=== PATIENT | male | born 1950 | race Caucasian/White ===

== ENCOUNTER 2019-12-30 11:32 | Outpatient (CLI) | payer MEDICARE, OTHER, SELFPAY ==
--- NOTE | ~2019-12-30 | NM_ITS ---
EXAMINATION: NM parathyroid imaging w spect DATE: 12/30/2019 15:03 INDICATION: Hypercalcemia TECHNIQUE: 19.6 mCi Tc99m Cardiolite (sestamibi) was administered by intravenous route. Anterior scin tigrams and delayed SPECT images of the neck were obtained at 10 minutes and 2 hours. COMPARISON: 12/28/2016 FINDINGS/IMPRESSION: There is no focus of persistent activity in the area of the thyroid or mediastinum to suggest parathy roid adenoma. Reviewed, dictated and finalized at location A.
== END 2019-12-30 11:33 | disposition home or self-care (01) ==
LOC: ANHIMG 11:45
PROVIDERS: PCP Family Medicine; Visit Provider Family Medicine
DX: E83.52 Hypercalcemia (principal)
CPT/HCPCS: 78071; A9500

== ENCOUNTER 2020-01-08 07:25 | Outpatient (CLI) | payer MEDICARE, OTHER, SELFPAY ==
[2020-01-08 08:05] LABS: Hemoglobin A1C 5.6 % (<5.7)
== END 2020-01-08 07:26 | disposition home or self-care (01) ==
LOC: ANHLAB 07:28 → ANHVASCINF 07:47
PROVIDERS: PCP Family Medicine; Visit Provider Family Medicine
DX: E11.9 Type 2 diabetes mellitus without complications (principal)
CPT/HCPCS: 36415; 83036

== ENCOUNTER 2020-04-09 07:40 | Outpatient (CLI) | payer MEDICARE, OTHER, SELFPAY ==
[2020-04-09 08:18] LABS: Alanine Aminotransferase 59 U/L (4-50); Albumin Level 4.2 g/dL (3.5-5.1); Alkaline Phosphatase 92 U/L (38-126); Anion Gap 8 mmol/L (8-16); Aspartate Amino Transferase 44 U/L (17-59); Bilirubin,Total 0.5 mg/dL (0.2-1.3); Blood Urea Nitrogen 23 mg/dL (9-20); Carbon Dioxide 28 mmol/L (22-30); Chloride 103 mmol/L (98-107); Estimated Glomerular Filt Rate > 60; Glucose 101 mg/dL (75-110); Potassium 3.8 mmol/L (3.4-5.0); Sodium 139 mmol/L (137-145)
[2020-04-09 08:29] LABS: Parathyroid Intact 60.2 pg/mL (7.5-53.5)
[2020-04-09 08:34] LABS: Hemoglobin A1C 5.5 % (<5.7)
== END 2020-04-09 07:41 | disposition home or self-care (01) ==
LOC: ANHLAB 07:44 → ANHVASCINF 07:46
PROVIDERS: PCP Family Medicine; Visit Provider Family Medicine
DX: E83.52 Hypercalcemia (principal); E11.9 Type 2 diabetes mellitus without complications
CPT/HCPCS: 36415; 80053; 83036; 83970

== ENCOUNTER 2020-06-30 09:35 | Outpatient (CLI) | payer MEDICARE, OTHER, SELFPAY ==
--- NOTE | ~2020-06-30 | US_ITS ---
EXAMINATION: US aorta [facility] DATE: 06/30/2020 10:01 INDICATION: Abdominal aortic aneurysm screening. TECHNIQUE: Grayscale, color Doppler, and pulsed Doppler images of the aorta and common iliac arteries were obtained. COMPARISON: CT abdomen and pelvis 03/28/2014 FINDINGS: The aorta is normal in caliber and demonstrates mild atherosclerosis. The right common iliac artery i s normal in caliber. The left common iliac artery is normal in caliber. IMPRESSION: 1. No abdominal aortic aneurysm. Reviewed, dictated and finalized at location A.
== END 2020-06-30 09:36 | disposition home or self-care (01) ==
PROVIDERS: PCP Internal Medicine; Visit Provider Internal Medicine
DX: Z13.6 Encounter for screening for cardiovascular disorders (principal)
CPT/HCPCS: 76706

== ENCOUNTER 2020-08-03 07:38 | Outpatient (CLI) | payer MEDICARE, OTHER, SELFPAY ==
[2020-08-03 08:09] LABS: Hematocrit 41.5 % (42.0-52.0); Hemoglobin 13.9 g/dL (14.0-18.0); Mean Corpuscular HGB Conc 33.5 g/dl (32-36); Mean Corpuscular Hemoglobin 31.6 pg (26-34); Mean Corpuscular Volume 94.3 fl (80-100); Mean Platelet Volume 10.1 fl (7.4-10.4); Platelet Count Result 235 k/mm3 (150-375); White Blood Count 4.8 K/mm3 (4.5-10.0)
[2020-08-03 08:18] LABS: Alanine Aminotransferase 36 U/L (4-50); Albumin Level 4.4 g/dL (3.5-5.1); Alkaline Phosphatase 78 U/L (38-126); Anion Gap 5 mmol/L (8-16); Aspartate Amino Transferase 31 U/L (17-59); Bilirubin,Total 0.3 mg/dL (0.2-1.3); Blood Urea Nitrogen 21 mg/dL (9-20); Calcium 10.6 mg/dL (8.4-10.2); Carbon Dioxide 30 mmol/L (22-30); Chloride 103 mmol/L (98-107); Estimated Glomerular Filt Rate 60; Glucose 114 mg/dL (75-110); Potassium 4.4 mmol/L (3.4-5.0); Sodium 138 mmol/L (137-145)
[2020-08-03 08:48] LABS: Thyroid Stimulating Hormone < 0.015 uIU/mL (0.465-4.680)
== END 2020-08-03 07:39 | disposition home or self-care (01) ==
PROVIDERS: PCP Internal Medicine; Referring Provider Internal Medicine; Visit Provider Internal Medicine
DX: E03.9 Hypothyroidism, unspecified (principal); M05.79 Rheumatoid arthritis with rheumatoid factor of multiple sites without organ or systems involvement; M77.11 Lateral epicondylitis, right elbow; F41.9 Anxiety disorder, unspecified
CPT/HCPCS: 36415; 80053; 84443; 85027

== ENCOUNTER 2020-09-14 08:10 | Outpatient (CLI) | payer MEDICARE, OTHER, SELFPAY ==
[2020-09-14 09:25] LABS: Thyroid Stimulating Hormone < 0.015 uIU/mL (0.465-4.680)
[2020-09-14 09:32] LABS: Free T4 Free Thyroxine 2.07 ng/mL (0.78-2.19)
== END 2020-09-14 08:11 | disposition home or self-care (01) ==
PROVIDERS: PCP Internal Medicine; Visit Provider Internal Medicine
DX: E03.9 Hypothyroidism, unspecified (principal)
CPT/HCPCS: 36415; 84439; 84443

== ENCOUNTER 2020-09-25 07:49 | Outpatient (CLI) | payer MEDICARE, OTHER, SELFPAY ==
[2020-09-25 08:36] LABS: Hemoglobin 13.9 g/dL (14.0-18.0); Mean Corpuscular HGB Conc 33.1 g/dl (32-36); Mean Corpuscular Hemoglobin 30.3 pg (26-34); Mean Corpuscular Volume 91.5 fl (80-100); Mean Platelet Volume 10.5 fl (7.4-10.4); Platelet Count Result 223 k/mm3 (150-375); Red Blood Count 4.59 M/mm3 (4.6-6.20); Red Cell Distribution Width 14.6 % (11.5-14.5); White Blood Count 5.4 K/mm3 (4.5-10.0)
[2020-09-25 08:44] LABS: Alanine Aminotransferase 90 U/L (4-50); Albumin Level 4.9 g/dL (3.5-5.1); Alkaline Phosphatase 95 U/L (38-126); Anion Gap 10 mmol/L (8-16); Aspartate Amino Transferase 75 U/L (17-59); Bilirubin,Total 0.9 mg/dL (0.2-1.3); Blood Urea Nitrogen 26 mg/dL (9-20); Calcium 10.8 mg/dL (8.4-10.2); Carbon Dioxide 28 mmol/L (22-30); Chloride 100 mmol/L (98-107); Cholesterol 110 mg/dL (0-200); Estimated Glomerular Filt Rate 54; Glucose 117 mg/dL (75-110); HDL Direct 46 mg/dL; Potassium 4.1 mmol/L (3.4-5.0); Sodium 138 mmol/L (137-145); Triglycerides 170 mg/dL (<150)
[2020-09-25 08:54] LABS: Add Urine Microscopic? YES; Appearance Urine Clear (Clear); Bilirubin Urine Negative (Negative); Blood Urine Negative (Negative); Color Urine Amber (Yellow); Glucose Urine UA Negative (Negative); Ketones Urine Negative (Negative); Leukocyte Esterase Ur Negative LEU/UL (NEGATIVE); Mucus Urine Heavy /lpf; Nitrate Urine Negative (Negative); Protein Urine 1+ mg/dL (Negative); RBC Urine 0-2 /hpf (0-2); Specific Grav Ur 1.027 (1.001-1.035); Squamous Epithelial Cell Urine Rare /hpf (Few); Urobilinogen Urine Negative mg/dL (<2.0); WBC Urine 0-3 /hpf (0-3)
[2020-09-25 08:55] LABS: LDL Cholesterol Direct 36 mg/dL
[2020-09-25 09:10] LABS: Hemoglobin A1C 5.5 % (<5.7)
[2020-09-25 09:13] LABS: Thyroid Stimulating Hormone < 0.015 uIU/mL (0.465-4.680)
[2020-09-25 09:34] LABS: Creatinine Urine 296.8 mg/dL
[2020-09-25 09:38] LABS: MALB Creatinine Ratio 21.5 mg/g (0-30); Microalbumin Urine Random 63.8 mg/L (0-16.7)
== END 2020-09-25 07:50 | disposition home or self-care (01) ==
PROVIDERS: PCP Internal Medicine; Visit Provider Internal Medicine
DX: E03.9 Hypothyroidism, unspecified (principal); E11.9 Type 2 diabetes mellitus without complications; E78.00 Pure hypercholesterolemia, unspecified; I10 Essential (primary) hypertension; E55.9 Vitamin D deficiency, unspecified
CPT/HCPCS: 36415; 80053; 80061; 81001; 82043; 83036; 84443; 85027

== ENCOUNTER 2020-10-26 08:25 | Outpatient (CLI) | payer MEDICARE, OTHER, SELFPAY ==
[2020-10-26 08:56] LABS: Alanine Aminotransferase 48 U/L (4-50); Alkaline Phosphatase 93 U/L (38-126); Anion Gap 5 mmol/L (8-16); Aspartate Amino Transferase 31 U/L (17-59); Bilirubin,Total 0.4 mg/dL (0.2-1.3); Blood Urea Nitrogen 20 mg/dL (9-20); Calcium 10.2 mg/dL (8.4-10.2); Carbon Dioxide 27 mmol/L (22-30); Chloride 106 mmol/L (98-107); Estimated Glomerular Filt Rate 54; Glucose 95 mg/dL (65-110); Potassium 4.6 mmol/L (3.4-5.0); Sodium 138 mmol/L (137-145)
[2020-10-26 09:26] LABS: Thyroid Stimulating Hormone < 0.015 uIU/mL (0.465-4.680)
== END 2020-10-26 08:26 | disposition home or self-care (01) ==
PROVIDERS: PCP Internal Medicine; Visit Provider Internal Medicine
DX: E03.9 Hypothyroidism, unspecified (principal); R79.89 Other specified abnormal findings of blood chemistry
CPT/HCPCS: 36415; 80053; 84443

== ENCOUNTER 2020-12-07 07:54 | Outpatient (CLI) | payer MEDICARE, OTHER, SELFPAY ==
[2020-12-07 09:07] LABS: Thyroid Stimulating Hormone < 0.015 uIU/mL (0.465-4.680)
== END 2020-12-07 07:55 | disposition home or self-care (01) ==
PROVIDERS: PCP Internal Medicine; Visit Provider Internal Medicine
DX: E03.9 Hypothyroidism, unspecified (principal)
CPT/HCPCS: 36415; 84443

== ENCOUNTER 2021-01-07 07:46 | Outpatient (CLI) | payer MEDICARE, OTHER, SELFPAY ==
[2021-01-07 08:24] LABS: Anion Gap 8 mmol/L (8-16); Blood Urea Nitrogen 15 mg/dL (9-20); Calcium 10.3 mg/dL (8.4-10.2); Carbon Dioxide 29 mmol/L (22-30); Chloride 101 mmol/L (98-107); Estimated Glomerular Filt Rate > 60; Glucose 109 mg/dL (65-110); Sodium 138 mmol/L (137-145)
[2021-01-07 08:46] LABS: Hemoglobin A1C 5.3 % (<5.7)
[2021-01-07 09:01] LABS: Creatinine Urine 155.9 mg/dL
[2021-01-07 09:06] LABS: MALB Creatinine Ratio 36.9 mg/g (0-30); Microalbumin Urine Random 57.6 mg/L (0-16.7)
== END 2021-01-07 07:47 | disposition home or self-care (01) ==
PROVIDERS: PCP Internal Medicine; Visit Provider Internal Medicine
DX: E03.9 Hypothyroidism, unspecified (principal); E11.9 Type 2 diabetes mellitus without complications; I10 Essential (primary) hypertension
CPT/HCPCS: 36415; 80048; 82043; 83036; 84443

== ENCOUNTER 2021-01-15 08:06 | Outpatient (CLI) | payer MEDICARE, OTHER, SELFPAY ==
--- NOTE | 2021-01-15 08:22 | ECG_ITS ---
Measurements Intervals [place] Rate: 101 P: 43 CA: 150 QRS: 65 QRSD: 81 T: 48 QT: 339 QTc: 439 Interpretive Statements SINUS TACHYCARDIA INCOMPLETE RIGHT BUNDLE BRANCH BLOCK BORDERLINE ECG Electronically Signed On 01-15-2021 8:40:23 CDT by Aroldo Dowling D.O.
== END 2021-01-15 08:07 | disposition home or self-care (01) ==
PROVIDERS: PCP Internal Medicine; Visit Provider Internal Medicine
DX: R00.0 Tachycardia, unspecified (principal); I10 Essential (primary) hypertension; I45.10 Unspecified right bundle-branch block
CPT/HCPCS: 93005

== ENCOUNTER 2021-02-03 08:16 | Outpatient (CLI) | payer MEDICARE, OTHER, SELFPAY ==
--- NOTE | 2021-02-03 08:19 | ECHO_ITS ---
Patient Info Name: Ras Moreno Age: 70 years : 1950 Gender: Male Ht: 70 in Wt: 225 lbs BSA: 2.28 m2 HR: 123 bpm BP: 130 / 89 mmHg Heart Rhythm: Tachycardia Exam Date: 02/03/2021 8:29 AM Exam Location: [facility] Pulmonary Patient Status: Outpatient Admit Date: 02/03/2021 Staff Ordering Physician: Ti El MD Cattle Killer: [id number] Attending Provider: Ti El MD Exam Type: CA echo doppler color flow Study Info Indications I10 - Essential (primary) hypertension Complete two-dimensional, color flow and Doppler transthoracic echocardiogram is performed. Summary 1. Complete two-dimensional, color flow and Doppler transthoracic echocardiogram is performed. 2. Left ventricular chamber dimension is normal. 3. Left ventricular systolic function is normal, estimated at 65-70%. 4. The left ventricular diastolic function is grade I diastolic dysfunction. 5. E/e' 10 is mildly elevated. 6. No pulmonary hypertension, estimated pulmonary arterial systolic pressure is 30 mmHg. Left Ventricle E/e' 10 is mildly elevated. Left ventricular chamber dimension is normal. Left ventricular systolic function is normal, estimated at 65-70%. The left ventricular diastolic function is grade I diastolic dysfunction. Right Ventricle Right ventricular systolic function is normal and with normal TAPSE 2.3 cm. Right ventricular chamber dimension is normal. Left Atria Left atrial chamber dimension is normal. Right Atria Right atrial chamber dimension is normal. Aortic Valve The aortic valve is trileaflet. There is no aortic valve stenosis. There is no aortic valve regurgitation. Pulmonic Valve There is no pulmonic regurgitation. Mitral Valve There is no mitral valve stenosis. There is no mitral valve regurgitation. Tricuspid Valve There is no tricuspid valve regurgitation. No pulmonary hypertension, estimated pulmonary arterial systolic pressure is 30 mmHg. Pericardium/Pleural There is no pericardial effusion. Inferior Vena Cava Normal inferior vena cava with >50% collapse upon inspiration consistent with normal right atrial pressure, 5 mmHg. Aorta The aortic root size at the sinus of Valsalva is normal. Left Ventricular Outflow Tract Name Value Normal LVOT 2D LVOT Diameter 1.9 cm LVOT Doppler LVOT Peak Gradient 6 mmHg LVOT Mean Gradient 3 mmHg LVOT VTI 17 cm LVOT VTI/AV VTI Ratio 0.8 LVOT Stroke Volume 48 ml LVOT CO 5.0 l/min LVOT CI 2.2 l/min/m2 Pulmonic Valve Name Value Normal RVOT Doppler RVOT Peak Gradient 3 mmHg PV Doppler
== END 2021-02-03 08:17 | disposition home or self-care (01) ==
PROVIDERS: PCP Internal Medicine; Visit Provider Internal Medicine
DX: R00.0 Tachycardia, unspecified (principal); I10 Essential (primary) hypertension
CPT/HCPCS: 93306

== ENCOUNTER 2021-02-09 07:26 | Outpatient (CLI) | payer MEDICARE, OTHER, SELFPAY ==
--- NOTE | 2021-03-02 17:18 | WPDSLEEPSTUD ---
Sleep Study Date of Study: 02/09/21 <Ingrid Steen DO - Last Filed: 03/02/21 18:18> Ordering Provider: Ti El MD <Ingrid Steen DO - Last Filed: 03/02/21 18:18> Interpreting Physician: Ingrid Steen DO <Ingrid Steen DO - Last Filed: 03/02/21 18:18> Sleep Study Type: Polysomnogram <Ingrid Steen DO - Last Filed: 03/02/21 18:18> Height: 1.78 m <Ingrid Steen DO - Last Filed: 03/02/21 18:18> Weight: 102.058 kg <Ingrid Steen DO - Last Filed: 03/02/21 18:18> Body Mass Index: 32.3 <Ingrid Steen DO - Last Filed: 03/02/21 18:18> Neck Circumference (inches): 16 <Ingrid Steen DO - Last Filed: 03/02/21 18:18> Frederic: 2 <Ingrid Steen DO - Last Filed: 03/02/21 18:18> Reason for Sleep Study Daytime hypersomnia and other co-morbidities including HTN, diabetes, and obesity <Ingrid Steen DO - Last Filed: 03/02/21 18:18> Sleep History The patient is a 70-year-old male with hypertension, diabetes, hypothyroidism and obesity that had a sleep study ordered by his primary care physician for daytime hypersomnia. The patient denies awakening from sleep short of breath. He denies awakening at night with heartburn, belching or cough. He does not snore loud enough that others complain. He denies having trouble sleeping when he has a cold. He denies waking up gasping for air throughout the night. He denies having breathing problems at night. He denies sweating excessively at night. He denies heart palpitations or irregular heartbeats during the night. He denies falling asleep during the day and while driving. He denies sleep paralysis, cataplexy and hypnagogic / hypnopompic hallucinations. He denies having nightmares. He denies having thoughts racing through his mind. He denies feeling sad, depressed or anxious. He denies noticing parts of his body jerk and kicking throughout the night. He denies crawling and aching feelings in his legs as well as leg pain during the night. He denies grinding his teeth during sleep and awakening with jaw pain in the morning. He is occasionally bothered by pain during the day but denies being awakened by pain during the night. He denies waking up feeling stiff in the morning with sore and achy muscles. He goes to bed at 11:00 p.m. on weekdays and 10:00 p.m. on weekends. It takes him 20 minutes to fall asleep. He wakes up between 2 and 3 times per night to use the restroom and take a medicine. He can fall asleep within 20 minutes. He awakens at 9:00 a.m. on both weekdays and weekends. He typically gets between 8 and 10 hours of sleep per night. He will stay in bed for 10 minutes after awakening in the morning. He currently lives with his . He is retired. He does consume caffeinated beverages within 2 hours of bedtime. He does not engage in physical exercise before bedtime. He does not read or watch television before falling asleep. He will occasionally take a nap in the afternoon or the evening and it is refreshing. He quit smoking 2 years ago. He drinks between 10 and 15 cups of coffee per day. He denies alcohol and recreational drug use. <Ingrid Steen DO - Last Filed: 03/02/21 18:18> [facility] Past Medical History Medical History: Medical History (Updated 03/02/21 @ 18:07 by Ingrid Steen DO) Pharyngitis <Ingrid Steen DO - Last Filed: 03/02/21 18:18> Family History Family History: Family History (Updated 06/22/20 @ 07:12 by Anila Augustine MA) Father Family history of malignant neoplasm Cancer Sibling Family history of malignant neoplasm Patient's sister is in good health Cancer Mother Patient's mother is in good health Thyroid disorder <Ingrid Steen DO - Last Filed: 03/02/21 18:18> Social History Social History: Social History (Updated 01/13/21 @ 10:56 by LIZBETH BaumA
[2021-03-02 17:24] VITALS: BMI 32.3
== END 2021-02-10 05:57 | disposition home or self-care (01) ==
LOC: ANHCSM 07:27
PROVIDERS: PCP Internal Medicine; Visit Provider Internal Medicine
DX: G47.10 Hypersomnia, unspecified (principal)
CPT/HCPCS: 95810

== ENCOUNTER 2021-03-17 08:11 | Outpatient (CLI) | payer MEDICARE, OTHER, SELFPAY ==
[2021-03-17 09:19] LABS: Parathyroid Intact 88.8 pg/mL (7.5-53.5)
[2021-03-21 22:55] LABS: Ionized Calcium 5.2 mg/dL (4.8-5.6)
[2021-03-29 14:31] LABS: Parathyroid Hormone Related Pr 13 pg/mL (11-20)
== END 2021-03-17 08:12 | disposition home or self-care (01) ==
PROVIDERS: PCP Internal Medicine; Visit Provider Internal Medicine
DX: E83.52 Hypercalcemia (principal); E03.9 Hypothyroidism, unspecified
CPT/HCPCS: 36415; 82306; 82330; 83519; 83970; 84443

== ENCOUNTER 2021-03-18 07:44 | Outpatient (CLI) | payer MEDICARE, OTHER, SELFPAY ==
[2021-03-24 12:06] LABS: Total Volume 1600 mL; Urine Calcium 21.6 mg/dL
== END 2021-03-18 07:45 | disposition home or self-care (01) ==
LOC: ANHLAB 07:49
PROVIDERS: PCP Internal Medicine; Visit Provider Internal Medicine
DX: E83.52 Hypercalcemia (principal); E03.9 Hypothyroidism, unspecified
CPT/HCPCS: 82340

== ENCOUNTER 2021-04-04 16:23 | Inpatient (IN) | payer MEDICARE, OTHER, SELFPAY ==
[2021-04-04] VITALS (13 sets, daily range): BP systolic 142–159; BP diastolic 93–99; PULSE 96–120; RESP 16–27; TEMP 37.1; O2SAT 96–100
--- NOTE | ~2021-04-04 | XR_ITS ---
XR chest 1V portable DATE: 04/15/2021 06:27 INDICATION: Respiratory failure TECHNIQUE: Portable AP chest on 04/15/2021 at 0604 hours COMPARISON: 04/14/2021 portable AP chest FINDINGS: Heart size is normal. No pulmonary infiltrate or consolidation, pleural effusion or pulmona ry vascular congestion or pneumothorax is evident. Feeding tube coiled in the body of the stomach. IMPRESSION: No active cardiopulmonary disease Feeding tube in stomach Reviewed, dictated and finalized at location A. DEVELOPER
--- NOTE | ~2021-04-04 | XR_ITS ---
XR chest 1V portable DATE: 04/14/2021 06:02 INDICATION: Respiratory failure TECHNIQUE: Portable AP chest on 04/14/2021 0502 hours COMPARISON: 04/13/2021 portable AP chest at 0450 hours FINDINGS: Interval removal of ET and NG tubes since 04/13/2021. There is mild infiltrate and/atelectasis in the lower lung zones primarily. No pleural effusion or pu lmonary vascular congestion or pneumothorax. Heart size appears normal. There is aortic calcification and unfolding. IMPRESSION: Removal of ET and NG tubes since 04/13/2021 Persistent mild infiltrate and/atelectasis at the lung bases Reviewed, dictated and finalized at location A. F COMMUNICATIONS OFFICER
--- NOTE | ~2021-04-04 | XR_ITS ---
EXAMINATION: XR chest ET placement EXAM DATE: 04/11/2021 19:11 INDICATION: ET placement TECHNIQUE: Portable AP frontal chest x-ray was obtained. Comparison is made to prior examination from earlier same date. FINDINGS: Endotracheal tube tip is 4-5 centimeters above the amilcar. Suspect developing left lower l obe airspace disease, development of silhouetting left hemidiaphragm. Feeding tube is in position. No pneumothorax or pleural effusion. Cardiomediastinal silhouette is normal. There are no osseous abnor malities identified. IMPRESSION: 1. Tubes in position. 2. Developing segmental left basilar pneumonia or atelectasis. Reviewed, dictated and finalized at location G. SH NURSE
--- NOTE | ~2021-04-04 | XR_ITS ---
EXAMINATION: XR fl Dobhoff insert/rad w img DATE: 04/14/2021 10:41 INDICATION: Unable to place nasogastric tube. TECHNIQUE: A Dobbhoff type feeding tube was advanced into the duodenum utilizing intermittent fluoroscopy. Final image demonstrates the feeding tube in position with the weighted tip at the expected location of th e ligament of Treitz. The tube was flushed with 10 mL sterile saline and fixed to the nares with adhe sive tape. A single fluoroscopic image was recorded. The amount of fluoroscopy time used during this procedure was 1.6 minutes. A single fluoroscopic image was recorded. There were no immediate complica tions. FINDINGS/IMPRESSION: Successful fluoroscopy-guided Dobbhoff feeding tube placement with the tube coiled in the stomach. Th e patient was relatively noncooperative and the tube was unable to be advanced further into the duode num. Insufficient length of tubing was left in the stomach to allow for passive passage into the duod enum with peristalsis. Reviewed, dictated and finalized at location A. ER
--- NOTE | ~2021-04-04 | XR_ITS ---
XR chest 1V portable DATE: 04/18/2021 03:24 INDICATION: Shortness of breath TECHNIQUE: Portable AP chest on 04/18/2021 at 0318 hours COMPARISON: 04/17/2021 AP chest 04/16/2021, 04/15/2021, 04/14/2021, 04/13/2021 portable AP chest examinations FINDINGS: Mild lower lung infiltrate and/atelectasis, left greater than right. Heart size appears normal. Aortic calcification and mild unfolding. No pleural effusion or pneumothorax. IMPRESSION: Mild lower lung infiltrate and/atelectasis, left greater than right Reviewed, dictated and finalized at location A. Y HOST
--- NOTE | ~2021-04-04 | CT_ITS ---
EXAMINATION: CT brain wo con DATE: 04/15/2021 11:33 INDICATION: Left-sided weakness TECHNIQUE: Computed tomography (CT) of the head was performed without intravenous contrast. The mA wa s adjusted according to patient size. Iterative reconstruction technique was employed. Exam dose: 60 5.33 mGy-cm total exam DLP. COMPARISON: 04/11/2021 CT brain FINDINGS: There is moderate intracranial cerebral atherosclerosis. There is nonspecific patchy dimini shed attenuation of the subcortical and periventricular cerebral white matter, likely due to chronic small vessel ischemic changes. No intracranial mass lesion or hemorrhage or cerebrovascular accident is detected. No midline shift o r mass effect. No subdural or epidural hematoma. There is moderate cerebral volume loss. Minimal mucoperiosteal thickening of the maxillary sinuses and ethmoid air cells. The left frontal si nus is not developed. No fracture or bone destruction of the cranial vault. IMPRESSION: Cerebral atherosclerosis and chronic small vessel ischemic changes of the cerebral white matter No acute intracranial abnormality is detected Reviewed, dictated and finalized at Location A. Reviewed, dictated and finalized at location A. AIDE
--- NOTE | ~2021-04-04 | XR_ITS ---
EXAMINATION: XR lumbar puncture diagnostic DATE: 04/12/2021 14:20 INDICATION: Altered mental status TECHNIQUE: The procedure including the risks and benefits was discussed with the patient's son and po wer of collections attorney, Syed Moreno. Risks discussed included spinal headache, cerebrospinal fluid leak, ble eding, and infection. The patient's son provided consent. A timeout was performed to verify the alexis osorio's name, date of , and procedure to be performed. The skin overlying the L3-L4 level was p repped and draped in usual sterile fashion. Subcutaneous 1% lidocaine was used for local anesthesia. A 22 gauge spinal needle was advanced under fluoroscopic guidance. The needle was removed and the e ntry site was cleaned and dressed. There were no immediate complications. The patient was returned t o the floor in the company of his nurse. FINDINGS: Real-time fluoroscopy demonstrates the needle at the L3-L4 level. Opening pressure was 22 c m water. (Normal range is variably defined as 6-20 cm water and up to 25 cm water in obese patients. Pressure >25 cm water is one of the modified Dandy criteria for idiopathic intracranial hypertension) . 15 mL of clear, colorless fluid was collected in 4 tubes. IMPRESSION: 1. Successful fluoro-guided lumbar puncture using clear colorless fluid with opening pressure of 22 c m water which is mildly elevated. Reviewed, dictated and finalized at location A. IZE MACHINE OPERATOR IMPRESSION: 1. Successful fluoro-guided lumbar puncture using clear colorless fluid with op ening pressure of 22 cm water which is mildly elevated.
--- NOTE | ~2021-04-04 | XR_ITS ---
XR abdomen NG/feed tube insert DATE: 04/14/2021 06:48 INDICATION: NG tube placement TECHNIQUE: Portable supine AP view on 04/14/2021 0643 hours COMPARISON: None FINDINGS: NG tube extends into the right mainstem bronchus and advanced into the right lower lobe. The history notes that the tube was removed immediately after the radiograph was obtained and reviewe d. Nonspecific bowel gas pattern. Lower abdomen is excluded. IMPRESSION: NG tube in the right lower lobe, reportedly immediately removed Reviewed, dictated and finalized at Location A. Reviewed, dictated and finalized at location A. GER STRATEGY & ACCOUNT
--- NOTE | ~2021-04-04 | MR_ITS ---
EXAMINATION: MR brain/brain stem wo con EXAM DATE: 04/16/2021 13:33 INDICATION: seizures TECHNIQUE: Magnetic resonance imaging (MRI) of the brain/brain stem obtained without contrast. Sagitt al T1, axial diffusion, gradient echo (T2*), T1, T2, FLAIR sequences obtained. Correlation is made t o head CT from yesterday. Compared to prior brain MRI from 04/05/2021 FINDINGS: Study is limited due to patient motion. There are no areas of restricted diffusion to sugg est acute infarction. There is no acute hemorrhage seen on the T2*, a hemosiderin sensitive sequence . No intraparenchymal brain mass lesion. There is mild periventricular and subcortical T2/FLAIR sign al hyperintensity, nonspecific but probably related to small vessel ischemic disease (microangiopathy ). There is mild prominence of the sulci and ventricles related to cerebral atrophy. There are no extra-axial collections. Flow voids are seen in the cerebral arteries on the T2-weighted sequences consistent with their expected patency. The orbits are unremarkable. Soft tissue is unremarkable. There is no significant interval change. IMPRESSION: 1. No acute intracranial findings. 2. Chronic age related findings. Reviewed, dictated and finalized at location B. T TIME NANNY
--- NOTE | ~2021-04-04 | CT_ITS ---
EXAMINATION: CT chest abdomen pelvis wo con DATE: 04/12/2021 13:09 INDICATION: Hypercalcemia. Smoker. Altered mental status. TECHNIQUE: Computed tomography (CT) of the chest, abdomen, and pelvis was performed without intraveno us contrast. Automated exposure control and iterative reconstruction technique were employed. The dos e-length product was 1661.36 mGy-cm. COMPARISON: None FINDINGS: CHEST CT: Endotracheal tube tip 5.0 cm above the amilcar. Mild emphysema. Consolidation in the dependent aspect of the bilateral lower lobes, left greater than right. Both the appearance of the airspace opacities as well as the associated asymmetric volume loss in the left lower lobe favors atelectasis over pneum onia. 6 x 4 mm nodule likely an intrafissural lymph node along the right major fissure. Calcified nod ule at the lingula and calcified left hilar lymph nodes consistent with old granulomatous disease. No pulmonary edema or pleural effusion. Heart size is normal. Very small pericardial effusion. Thoracic aorta is normal in caliber. No pathologically enlarged thoracic lymphadenopathy. Mild thoracic spond ylosis. No suspicious lytic or blastic bone lesions. ABDOMEN/PELVIS CT: Nasogastric tube tip at the gastric antrum. Liver, gallbladder, spleen, pancreas, bilateral adrenal g lands and right kidney are normal. 3.2 cm exophytic lesion arising from the upper pole of the left ki dney with heterogeneous mixed fluid and soft tissue density concerning for renal cell carcinoma altho ugh differential would include complex cyst. There is moderate sigmoid diverticulosis without adjacen t inflammatory change to suggest diverticulitis. Many of the bowels including appendix are normal. Ri ght femoral vein central venous catheter with distal tip at the distal right common iliac vein. Acosta catheter within the decompressed bladder. No free intraperitoneal gas or fluid. No pathologically en larged abdominal or pelvic lymphadenopathy. Small fat-containing left inguinal hernia. Moderate disc height loss with degenerative endplate changes at L4-L5. No suspicious lytic or blastic bone lesions. IMPRESSION: 1. Lines and tubes in expected position. 2. Mild emphysema with dependent atelectasis in the bilateral lower lobes, left greater than right. 3. Very small pericardial effusion. 4. Indeterminate 3.2 cm exophytic left renal lesion suspicious for renal cell carcinoma. Recommend fu rther evaluation with nonemergent pre and postcontrast CT or MRI when clinically appropriate. Reviewed, dictated and finalized at location A. RA SYSTEMS ENGINEER IMPRESSION: 1. Lines and tubes in expected position. 2. Mild emphysema with dependent atelectasis in the bilateral lower lobes, left greater than right. 3. Very small pericardial effusion. 4. Indeterminate 3.2 cm exophytic left renal lesion suspicious for renal cell c arcinoma. Recommend further evaluation with nonemergent pre and postcontrast CT or MRI when clinically appropriate.
--- NOTE | ~2021-04-04 | MR_ITS ---
EXAMINATION: MR abdomen wo/w con DATE: 04/14/2021 10:22 INDICATION: Left renal mass TECHNIQUE: Magnetic resonance imaging (MRI) of the abdomen was performed without intravenous contrast . Patient was uncooperative during the exam which was terminated prior to completion of all sequences and prior to administration of intravenous contrast. Sequences included coronal T2-weighted SS-FSE, coronal FS 2D-FIESTA and coronal T1-weighted LAVA. COMPARISON: CT dated 04/12/2021 FINDINGS: Heart size is normal. No pericardial or pleural effusion. Liver, gallbladder, pancreas, bilateral adr enal glands, right kidney and spleen are normal. Again seen is a 3.2 cm partially exophytic mass at t he upper pole of the left kidney with heterogeneous T1 and T2 signal which remains concerning for leslie al cell carcinoma although a complex cyst with either clot or congealed proteinaceous material remain s a possibility which cannot exclude an absence of postcontrast imaging. Visualized portions of the b owels are unremarkable. Moderate disc height loss with fibrofatty degenerative endplate changes at L4 -L5. Marrow signal is otherwise normal. IMPRESSION: 1. 3.2 similar heterogeneous partially exophytic mass at the upper pole of the left kidney which chrissy ins concerning for renal cell carcinoma. Would recommend either repeat pre and postcontrast MRI when patient is clinically improved and better able to cooperate with imaging or could also consider pre a nd postcontrast CT which would be less susceptible but not immune to poor patient compliance. . Reviewed, dictated and finalized at location A. ET DISPATCHER IMPRESSION: 1. 3.2 similar heterogeneous partially exophytic mass at the upper pole of the left kidney which remains concerning for renal cell carcinoma. Would recommend either repeat pre and postcontrast MRI when patient is clinically improved and better able to cooperate with imaging or could also consider pre and postcontra st CT which would be less susceptible but not immune to poor patient compliance . .
--- NOTE | ~2021-04-04 | CT_ITS ---
EXAMINATION: CT brain wo con EXAM DATE: 04/11/2021 16:16 INDICATION: Stroke protocol. Seizure activity. Blood in mouth. TECHNIQUE: Spiral CT of the head was performed without contrast. Axial, coronal and sagittal images were reviewed. The dose-length product (DLP) for this examination was 1059.33 mGy-cm. The exposure was tailored according to patient size, and iterative reconstruction (ASIR) was used as additional do se reduction technique. Comparison is made to prior examination from 04/04/2021. FINDINGS: Study is limited due to patient motion. There is no acute intraparenchymal hemorrhage. N o evidence of intraparenchymal brain mass lesion. No evidence of acute infarction. Please note that initial head CT has limited sensitivity for small or acute infarctions. There is mild to moderate pe riventricular and subcortical hypodensity, nonspecific but probably related to small vessel ischemic disease. There is mild prominence of the sulci and ventricles related to cerebral atrophy. There is intracranial carotid arteriosclerosis. There are no extra-axial collections. There is no mass ef fect or midline shift. The orbits are unremarkable. Soft tissue is unremarkable. The visualized si nuses and mastoid air cells are well aerated. There is no significant interval change. IMPRESSION: 1. No acute intracranial findings. 2. Chronic age related findings. As per stroke protocol, I called these results to Ro Mcintyre MD, ad 04/11/2021 16:21 RECORDING STUDIO SET UP WORKER Reviewed, dictated and finalized at location . RDING STUDIO SET UP WORKER IMPRESSION: 1. No acute intracranial findings. 2. Chronic age related findings. As per stroke protocol, I called these results to Ro Mcintyre MD, ad 03/27 16:21 RECORDING STUDIO SET UP WORKER
--- NOTE | ~2021-04-04 | XR_ITS ---
EXAMINATION: XR chest 1V portable EXAM DATE: 04/11/2021 17:11 INDICATION: Aspiration . TECHNIQUE: Portable AP frontal chest x-ray was obtained. There is no prior study for comparison. FINDINGS: The lungs are clear. There are no pleural effusions. Cardiac silhouette is prominent but magnified on this AP technique. There is no pneumothorax suspected. The bones and soft tissues are unremarkable. IMPRESSION: No acute cardiopulmonary findings. Reviewed, dictated and finalized at location G. NCIAL AID OFFICER
--- NOTE | ~2021-04-04 | XR_ITS ---
XR chest 1V portable DATE: 04/16/2021 08:25 INDICATION: Respiratory failure. Recent effusion. TECHNIQUE: Portable AP chest on 04/16/2021 at 0809 hours COMPARISON: 04/15/2021 portable AP chest at 0604 hours FINDINGS: There is mild prominence of the left fissure suggesting subpleural edema. Is mild pulmonary vascular prominence. There is minimal infiltrate or atelectasis at the lung bases. No pleural effusion or pneumothorax is evident. Heart size appears within normal limits. Aortic calcification and unfolding. Feeding tube is coiled in the stomach. IMPRESSION: Mild congestive changes and minimal infiltrate or atelectasis at the lung bases Reviewed, dictated and finalized at location A. K LEASING MANAGER IMPRESSION: Mild congestive changes and minimal infiltrate or atelectasis at th e lung bases
--- NOTE | ~2021-04-04 | XR_ITS ---
EXAMINATION: XR chest 1V INDICATION: Altered mental status TECHNIQUE: AP view the chest is obtained. COMPARISON: 05/14/2012 FINDINGS: The lungs are free of acute opacities. There is no pleural effusion or pneumothorax. The ca rdiomediastinal silhouette is normal. IMPRESSION: 1. No acute cardiopulmonary abnormality. Reviewed, dictated and finalized at location F. S ANALYST
--- NOTE | ~2021-04-04 | MR_ITS ---
EXAMINATION: MR brain/brain stem wo con EXAM DATE: 04/05/2021 15:10 INDICATION: Gait disturbance. TECHNIQUE: Magnetic resonance imaging (MRI) of the brain/brain stem obtained without contrast. Sagitt al T1, axial diffusion, gradient echo (T2*), T1, T2, FLAIR sequences obtained. There is no prior st udy for comparison. FINDINGS: There are no areas of restricted diffusion to suggest acute infarction. There is no acute hemorrhage seen on the T2*, a hemosiderin sensitive sequence. No intraparenchymal brain mass lesion. There is mild to moderate periventricular and subcortical T2/FLAIR signal hyperintensity, nonspecifi c but probably related to small vessel ischemic disease (microangiopathy). There is mild prominence of the sulci and ventricles related to cerebral atrophy. There are no extra-axial collections. Fl ow voids are seen in the cerebral arteries on the T2-weighted sequences consistent with their expecte d patency. The orbits are unremarkable. Soft tissue is unremarkable. IMPRESSION: 1. No acute intracranial findings. 2. Chronic age related findings. Reviewed, dictated and finalized at location A. MATIC HEMMER
--- NOTE | ~2021-04-04 | XR_ITS ---
XR chest 1V portable DATE: 04/17/2021 05:58 INDICATION: Respiratory failure TECHNIQUE: Portable AP chest on 04/17/2021 at 0531 hours COMPARISON: 04/16/2021 portable AP chest at 0809 hours 04/12/2021 CTA chest FINDINGS: Normal heart size. There is aortic unfolding and minimal calcification. There is mild infiltrate or atelectasis in the lower lung zones, left greater than right. No pleural effusion or pneumothorax. IMPRESSION: Diminished congestive changes since 04/16/2021. Mild bibasilar infiltrate or atelectasis, left greater than right Reviewed, dictated and finalized at location A. KING DEPARTMENT SUPERVISOR IMPRESSION: Diminished congestive changes since 04/16/2021. Mild bibasilar infil trate or atelectasis, left greater than right
--- NOTE | ~2021-04-04 | MR_ITS ---
EXAMINATION: MR cervical spine wo con DATE: 04/07/2021 07:11 INDICATION: Gait disturbance. TECHNIQUE: Magnetic resonance imaging (MRI) of the cervical spine was performed without intravenous c ontrast. Sequences included sagittal T2-weighted FSE, sagittal T2-weighted FS FSE, sagittal T1-weight ed FSE, axial MERGE, and axial T2-weighted FSE. COMPARISON: None FINDINGS: Motion artifact is noted. Bone alignment is normal. Vertebral body heights are normal. Ther e is moderately decreased disc height from C4-C5 through C6-C7. The spinal cord signal intensity is n ormal. The following disc levels are specifically discussed: C2-C3: The disc does not extend beyond the endplate margin. There is mild bilateral uncovertebral dinora nt osteoarthritis. There is moderate bilateral facet joint osteoarthritis. There is no neural foramin al stenosis. There is no central canal stenosis. C3-C4: The disc does not extend beyond the endplate margin. There is mild lateral uncovertebral joint osteoarthritis. There is mild right and moderate left facet joint osteoarthritis. There is no neural foraminal stenosis. There is no central canal stenosis. C4-C5: The disc is bulging. There is severe right and mild left uncovertebral joint osteoarthritis. T here is moderate bilateral facet joint osteoarthritis. There is moderate right and mild left neural f oraminal stenosis. There is mild central canal stenosis. C5-C6: The disc is bulging. There is moderate bilateral uncovertebral joint osteoarthritis. There is severe bilateral facet joint osteoarthritis. There is mild right and moderate left neural foraminal s tenosis. There is mild central canal stenosis. C6-C7: The disc is bulging. There is moderate severe left uncovertebral joint osteoarthritis. There i s mild bilateral facet joint osteoarthritis. There is mild bilateral neural foraminal stenosis. There is mild central canal stenosis. C7-T1: The disc does not extend beyond the endplate margin. There is no uncovertebral joint osteoarth ritis. There is moderate bilateral facet joint osteoarthritis. There is mild left neural foraminal st enosis. There is no central canal stenosis. IMPRESSION: 1. Moderate cervical spondylosis. Reviewed, dictated and finalized at location B. CO ARTIST
--- NOTE | ~2021-04-04 | XR_ITS ---
XR chest 1V portable DATE: 04/13/2021 06:30 INDICATION: Respiratory failure TECHNIQUE: Portable AP chest on 04/13/2021 0450 hours COMPARISON: 04/12/2021 CT chest abdomen pelvis FINDINGS: ET tube in satisfactory position 4.5 cm above amilcar. NG tube in stomach. No central lines. Heart size appears within normal limits. There is mild infiltrate or atelectasis at the lung bases. IMPRESSION: Mild infiltrate or atelectasis at the lung bases Reviewed, dictated and finalized at location A. DING MACHINE TENDER
--- NOTE | ~2021-04-04 | XR_ITS ---
EXAMINATION: XR abdomen NG/feed tube rechec DATE: 04/15/2021 15:17 INDICATION: Recheck Dobbhoff feeding tube placement TECHNIQUE: A supine view of the abdomen and lower chest was obtained for evaluation of feeding tube placement. COMPARISON: 04/14/2021 FINDINGS: The Dobbhoff type nasoenteric feeding tube remains coiled in the body of the stomach the left upper q uadrant. There are some gas scattered throughout the normal caliber colon. No dilated loops of bowel to suggest obstruction. Visualized portions of the lung bases are clear. Heart size is normal. IMPRESSION: 1. Nasoenteric feeding tube coiled in the proximal body of the stomach. Could consider positioning th e patient in the right lateral decubitus position utilizing gravity to facilitate passive advancement of the weighted tip into the more distal right side of the stomach and duodenum. Reviewed, dictated and finalized at location A. CIATE DESIGNER IMPRESSION: 1. Nasoenteric feeding tube coiled in the proximal body of the stomach. Could c onsider positioning the patient in the right lateral decubitus position utilizi ng gravity to facilitate passive advancement of the weighted tip into the more distal right side of the stomach and duodenum.
--- NOTE | ~2021-04-04 | CT_ITS ---
EXAMINATION: CT brain wo con INDICATION: Altered mental status COMPARISON: None TECHNIQUE: Standard unenhanced head CT. The dose-length product (DLP) was 605.33 mGy-cm. The mA was a djusted according to patient size. Iterative reconstruction technique was employed. FINDINGS: There is no acute intraparenchymal hemorrhage. No evidence of mass lesion. No evidence of a cute infarction. There is mild periventricular and subcortical hypodensity probably related to small vessel ischemic disease. There is mild prominence of the sulci and ventricles related to cerebral atr ophy. Intracranial calcified cerebral atherosclerosis is noted. There are no extra-axial collections. There is no mass effect or midline shift. The orbits and soft tissues are unremarkable. There is mil d mucosal thickening of the paranasal sinuses. IMPRESSION: 1. No acute intracranial abnormality. 2. Age related findings. Reviewed, dictated and finalized at location F. ON CUTTING MACHINE OPERATOR
--- NOTE | ~2021-04-04 | XR_ITS ---
XR chest 1V portable DATE: 04/12/2021 05:49 INDICATION: Intubation TECHNIQUE: Portable AP chest on 04/12/2021 at 0527 hours COMPARISON: 04/11/2021 portable AP chest FINDINGS: ET tube in satisfactory position 5 cm above amilcar. NG tube in stomach. No central lines. Normal heart size. Aortic ectasia and mild unfolding. No hilar or mediastinal enlargement is evident. Mild infiltrate or atelectasis at the left lower lung, improved since 04/11/2021. IMPRESSION: Interval improvement of mild infiltrate or atelectasis at left lung base Reviewed, dictated and finalized at location A. Y LEVEL ACCOUNT EXECUTIVE
--- NOTE | 2021-04-04 16:50 | ED.AMS ---
HPI - Altered Mental Status General Chief Complaint: Altered Mental Status Stated Complaint: confusion Time Seen by Provider: 04/04/21 16:50 Source: patient, family and EMS Mode of arrival: EMS Limitations: altered mental status History of Present Illness HPI narrative: The patient is a 70 yo male with a history of RA, prediabetes, hypothyroidism, GERD, presenting for evaluation of AMS. Pt with abnormal behavior per family over past 24 hours. Pt son at bedside provides the history. States that over the past month, patient has had increased moodiness per family. Family states he has had increased frequency of urination and urge incontinence. He has had been sleeping more than normal and seems less steady per family. Patient son took him to a local urgent care this morning, thus prompting them to visit our ED. Per family, patient put a remote control in a microwave. Per family, no recent falls or injuries. Pt reports some word finding difficulty. Pt also with decreased appetite. Pt denies any numbness or focal weakness. No fever or chills. Pt had an appointment with his physician, but the appointment was cancelled because the entire office had COVID. Related Data Home Medications Medication Instructions Recorded Confirmed folic acid 1 mg tablet 1 mg PO DAILY 03/14/19 01/13/21 golimumab 100 mg/mL subcutaneous 50 mg SUB-Q .COMPLEX 03/14/19 01/13/21 pen injector methotrexate sodium 2.5 mg tablet 2.5 mg PO WEEKLY 03/14/19 01/13/21 fmoisqnw-bsu-myayk acid 300 1 tablet PO DAILY 03/14/19 01/13/21 mcg-lycopene 600 mcg-lutein 300 mcg tablet aspirin 81 mg tablet,delayed 81 mg PO DAILY 09/19/19 01/13/21 release prednisone 2.5 mg tablet 2.5 mg PO DAILY 06/23/20 01/13/21 Allergies Allergy/AdvReac Type Severity Reaction Status Date / Time rubber, unspecified Allergy Severe Rash Verified 03/03/21 12:52 Review of Systems Review of Systems: CONSTITUTIONAL: Denies fever, chills EYES: Denies visual changes ENT: Denies rhinorrhea, congestion CARDIOVASCULAR: Denies chest pain RESPIRATORY: Denies cough or dyspnea. GASTROINTESTINAL: Denies abdominal pain, nausea, vomiting, or diarrhea. GENITOURINARY: Denies dysuria or hematuria.Reports urinary frequency, urge incontinence. SKIN: Denies rash or itching. MUSCULOSKELETAL: Denies back pain, joint pain, or myalgia. NEUROLOGIC: Denies headache, numbness, or weakness. [facility] Past Medical History Medical History (Updated 04/04/21 @ 18:35 by Sidra Aguilar MD) Anxiety Balanitis COVID-19 vaccine series completed Elevated LFTs Essential hypertension Establishing care with new doctor, encounter for YEE (generalized anxiety disorder) Gastro-esophageal reflux disease without esophagitis Gastroesophageal reflux disease History of tobacco use Hypercalcemia Hypersomnia Hypothyroidism, unspecified Obesity (BMI 30-39.9) LUIS (obstructive sleep apnea) Personal history of COVID-19 Pharyngitis Pure hypercholesterolemia Rheumatoid arthritis, unspecified Screening for AAA (abdominal aortic aneurysm) Secondary hyperparathyroidism Secondary hypoparathyroidism Serum calcium elevated Tachycardia Type 2 diabetes mellitus without complication, without long-term current use of insulin Vaccine counseling Vitamin D deficiency, unspecified Surgical History Surgical History (Updated 04/04/21 @ 17:19 by Sidra Aguilar MD) S/P Mohs surgery for basal cell carcinoma Family History Family History Father Family history of malignant neoplasm Cancer Sibling Family history of malignant neoplasm Patient's sister is in good health Cancer Mother Patient's mother is in good health Thyroid disorder Social History Social History Social History: Smoking packs per day: 1 Smoking cigarettes per day: 20.0 Years smoked: 47 Smoking pack-years: 47.00 Smoking status:
--- NOTE | 2021-04-04 16:53 | ECG_ITS ---
Measurements Intervals [place] Rate: 105 P: 22 MI: 148 QRS: 46 QRSD: 82 T: 31 QT: 325 QTc: 431 Interpretive Statements SINUS TACHYCARDIA BASELINE ARTIFACT- III BORDERLINE ECG Electronically Signed On 04-04-2021 19:59:28 WIRE LATHER by Aroldo Dowling D.O.
[2021-04-04 17:22] LABS: Hematocrit 43.1 % (42.0-52.0); Hemoglobin 14.1 g/dL (14.0-18.0); Immature Platelet Fraction Pct 4.7 % (0.9-11.2); Mean Corpuscular HGB Conc 32.7 g/dl (32-36); Mean Corpuscular Volume 88.5 fl (80-100); Mean Platelet Volume 10.4 fl (7.4-10.4); Platelet Count Result 193 k/mm3 (150-375); Red Blood Count 4.87 M/mm3 (4.6-6.20); Red Cell Distribution Width 18.1 % (11.5-14.5)
[2021-04-04 17:43] LABS: Acetaminophen < 10 ug/mL (10-30); Ammonia < 9 umol/L (9-30); Ethanol < 10 mg/dL (<10); Lactic Acid Reflex 1.3 mmol/L (0.7-2.1); Salicylate < 1.0 mg/dL (2-20)
[2021-04-04 17:44] LABS: Alanine Aminotransferase 40 U/L (4-50); Albumin Level 4.7 g/dL (3.5-5.1); Alkaline Phosphatase 119 U/L (38-126); Anion Gap 10 mmol/L (8-16); Aspartate Amino Transferase 47 U/L (17-59); Blood Urea Nitrogen 17 mg/dL (9-20); Calcium 10.8 mg/dL (8.4-10.2); Carbon Dioxide 25 mmol/L (22-30); Chloride 99 mmol/L (98-107); Estimated CRCL calculation 65 ml/min; Estimated Glomerular Filt Rate > 60; Glucose 114 mg/dL (65-110); Potassium 4.2 mmol/L (3.4-5.0); Sodium 134 mmol/L (137-145)
[2021-04-04 17:56] LABS: Troponin I < 0.012 ng/mL (0.000-0.034)
[2021-04-04] MEDS: SODIUM CHLORIDE 0.9% IV 1,000 ML 999 ML IV CONT (18:19)
[2021-04-04 18:20] LABS: Band Neutrophils Percent 1 % (0-6); Monocytes Percent Manual 32 % (3-9); Neutrophils Percent Manual 47 % (46-73); Total Cells Counted 100
[2021-04-04 18:21] LABS: Anisocytosis 2+ (NORMAL); Platelet Estimate Adequate (Adequate)
--- NOTE | 2021-04-04 18:54 | PC.NURSE ---
Patient aware that we need him to provide a urine sample. Patient instructed to use his call light when he feels like he can urinate.
[2021-04-04 19:26] LABS: SARS-CoV-2 RNA PCR Negative
[2021-04-04 19:28] LABS: Add Urine Microscopic? YES; Appearance Urine Clear (Clear); Bilirubin Urine Negative (Negative); Blood Urine Negative (Negative); Color Urine Yellow (Yellow); Glucose Urine UA Negative (Negative); Ketones Urine Negative (Negative); Leukocyte Esterase Ur Negative LEU/UL (Negative); Mucus Urine Rare /lpf; Nitrate Urine Negative (Negative); Protein Urine 1+ mg/dL (Negative); RBC Urine 0-2 /hpf (0-2); Urobilinogen Urine Negative mg/dL (<2.0); WBC Urine 0-3 /hpf
[2021-04-04 19:40] LABS: Amphetamine Screen Urine Negative (Negative); Barbiturate Screen Urine Negative (Negative); Benzodiazepines Screen Urine Positive (Negative); Cannabinoid Screen Urine Negative (Negative); Cocaine Screen Urine Negative (Negative); Methadone Screen Urine Negative (Negative); Opiate Screen Urine Negative (Negative); Phencyclidine Screen Urine Negative (Negative)
--- NOTE | 2021-04-04 20:38 | PM.IMHP ---
H&P: HPI History of Present Illness Date/Time: 04/04/21 20:38 Chief Complaint: ALTERED MENTAL STATUS. Narrative: This is a 70-year-old male with past medical history significant for rheumatoid arthritis, patient gets infusions every 8 weeks of Simponi (golimumab) patient just got his last infusion on early February, gastroesophageal reflux disease, hypothyroidism, hyperparathyroidism, chronic hyper calcemia. Patient was brought to the emergency room after he was referred from a local urgent care after his son brought him in due to altered mental status according to son the night before he was fine going to bed in the morning he put a remote control in the microwave and cooked it, then call his daughter and asked if she knew someone in the neighborhood that could fix the remote. Son noted that he was having word-finding difficulty and while having a conversation was rambling and also notice gait difficulty. Preliminary workup has been essentially nonrevealing. At the time of my visit patient denied any pain, any chills or rigors, fevers, cough sputum production, nausea, vomiting ,abdominal pain or diarrhea, no syncope near syncope, lightheadedness, vertigo, vision changes, headaches, he did complain of paresthesia of bilateral lower extremity as well as difficulty with his gait. Patient was able to invoke a long-term memory facts but seem to be having problem remembering why he was taken to the emergency room. Patient is been admitted for further evaluation management and treatment. Review of Systems Review of Systems: History has been obtained from reviewing medical records and son who is at bedside. Patient can not seem to remember what brought him to the emergency room. Constitutional: Constitutional: Denies chills, Denies fatigue, Denies fever(s), Denies lethargy, Denies malaise, Denies night sweats and Denies poor appetite Eyes: Eyes: Denies change in vision ENT: Denies dysphagia, Denies vertigo, Denies dizziness, Denies headache(s), Denies nasal congestion, Denies nasal discharge, Denies nasal obstruction, Denies odynophagia, Denies throat swelling and Denies tongue swelling Cardiovascular: Cardiovascular: Denies pedal edema, Denies claudication, Denies leg edema, Denies lightheadedness, Denies radiating jaw, neck or arm pain, Denies palpitations, Denies dyspnea on exertion, Denies orthopnea and Denies paroxysmal nocturnal dyspnea Respiratory: Respiratory: Denies chest congestion, Denies cough, Denies excessive phlegm production and Denies dyspnea Gastrointestinal: Gastrointestinal: Denies abdominal pain, Denies dyspepsia, Denies heartburn and Denies nausea Genitourinary: Genitourinary: Denies dysuria and Denies flank pain Musculoskeletal: Musculoskeletal: Reports abnormal gait, Denies arthralgias, Reports muscle weakness and Reports tingling Integumentary/Breasts: Skin/Breast: Denies rash Neurologic: Denies Neuro-related abnormal movements, Reports abnormal gait, Reports behavioral changes, Denies frequent falls, Denies headache(s), Denies focal weakness, Denies numbness, Reports tingling and Reports paresthesias Psychiatric: Psychiatric: Reports mood swings Endocrine: Endocrine: Denies cold intolerance, Denies deepening of the voice, Denies excessive sweating, Denies fatigue, Denies heat intolerance and Denies palpitations Hematologic/Lymphatic: Hematologic/Lymphatic: Reports no additional hematologic/lymphatic complaints and Reports as per HPI Allergic/Immunologic: Allergic/Immunologic: Reports no additional allergic/immunologic complaints and Reports as per HPI [facility] Past Medical History Medical History (Updated 04/05/21 @ 03:35 by Mk Davis MD) Anxiety Balanitis COVID-19 vaccine series completed Elevated LFTs Essential hypertension Establishing care with new doctor, encounter for YEE (generalized anxiety disorder) Gastro-esophageal reflux disease without esophagitis Gastroesophageal reflux disease History of tobacco u
[2021-04-04] MEDS: SODIUM CHLORIDE 0.9% IV 1,000 ML 125 ML IV CONT (21:47)
--- NOTE | 2021-04-04 22:55 | PC.NURSE ---
Patient ambulatory to ED restroom with use of home cane. Critical Care Cns walked with patient to ensure patient's safety.
--- NOTE | 2021-04-04 23:23 | PC.NURSE ---
Patient care report given to GINNY Heath and all questions answered at this time. Care turned over to GINNY Heath.
[2021-04-05] VITALS (15 sets, daily range): BP systolic 120–178; BP diastolic 82–109; PULSE 92–123; RESP 14–25; TEMP 36.4–36.6; O2SAT 94–99; BMI 30.2
[2021-04-05] MEDS: SODIUM CHLORIDE 0.9% IV 1,000 ML 125 ML IV CONT (06:20)
[2021-04-05 09:41] LABS: Basophils Percent Auto 0.9 % (0.2-1.2); Eosinophils Percent Auto 0.5 % (0-4.4); Hematocrit 39.5 % (42.0-52.0); Hemoglobin 13.1 g/dL (14.0-18.0); Immature Granulocyte Absolute 0.02 K/mm3 (0.00-0.031); Immature Granulocyte Percent A 0.5 % (0-0.5); Lymphocytes Absolute Auto 0.92 K/mm3 (0.9-3.2); Lymphocytes Percent Auto 21.7 % (18.3-44.2); Mean Corpuscular HGB Conc 33.2 g/dl (32-36); Mean Corpuscular Volume 87.6 fl (80-100); Mean Platelet Volume 10.5 fl (7.4-10.4); Monocytes Absolute Auto 1.2 K/mm3 (0.1-0.6); Monocytes Percent Auto 27.6 % (2.6-8.5); Neutrophils Absolute Auto 2.1 K/mm3 (1.3-6.7); Neutrophils Percent Auto 48.8 % (45.5-73.1); Platelet Count Result 187 k/mm3 (150-375); Red Blood Count 4.51 M/mm3 (4.6-6.20); Red Cell Distribution Width 17.7 % (11.5-14.5); White Blood Count 4.2 K/mm3 (4.5-10.0)
[2021-04-05 09:52] LABS: Alanine Aminotransferase 36 U/L (4-50); Albumin Level 4.3 g/dL (3.5-5.1); Alkaline Phosphatase 108 U/L (38-126); Anion Gap 9 mmol/L (8-16); Aspartate Amino Transferase 43 U/L (17-59); Blood Urea Nitrogen 13 mg/dL (9-20); Calcium 9.9 mg/dL (8.4-10.2); Carbon Dioxide 25 mmol/L (22-30); Chloride 102 mmol/L (98-107); Estimated CRCL calculation 71 ml/min; Estimated Glomerular Filt Rate > 60; Glucose 126 mg/dL (65-110); Potassium 4.1 mmol/L (3.4-5.0); Sodium 136 mmol/L (137-145)
--- NOTE | 2021-04-05 10:00 | P.PNIM_ITS ---
Progress Note: A&P Assessment and Plan (1) Altered mental status: Qualifiers: Altered mental status type: transient alteration of awareness Qualified Code(s): R40.4 - Transient alteration of awareness Code(s): R41.82 - Altered mental status, unspecified Status: Acute Assessment and Plan: Presented with odd behavior and difficulty word finding. * He is A&O x3. Cannot accurately state the year * Head CT showed no acute intracranial abnormalities * MRI is pending * Appreciate Neurology consultation * TSH and ammonia are normal. Will check vitamin B12 and folate. * Urine tox screen positive for benzodiazepines and patient is on alprazolam. * Patient not been sleeping which could contribute to odd behavior and confusion. Melatonin 3 mg qHS * Possibly underlying dementia though patients son reports no history of forgetfulness, etc (2) Gait disturbance: Code(s): R26.9 - Unspecified abnormalities of gait and mobility Status: Acute Assessment and Plan: Likely secondary to rheumatoid arthritis * Patient's son reports patient has functional ability is dependent on when his last infusion was * Also may be worsened by peripheral neuropathy. Continue gabapentin * Appreciate PT/OT eval * Fall precautions (3) Urinary incontinence: Code(s): R32 - Unspecified urinary incontinence Status: Acute Assessment and Plan: New onset incontinence the past 2-3 days * Feels he is not emptying his bladder * Bladder scan to ensure no retention * No evidence of obstruction. Renal function is normal * UA without concerns for infections * Continue to monitor * Consider urology consultation/referral if persistent (4) Serum calcium elevated: Code(s): E83.52 - Hypercalcemia Status: Acute Assessment and Plan: Calcium slightly elevated up to 10.8 on presentation * Review of labs demonstrates history of mildly elevated calcium levels * Calcium improved with IV fluid rehydration to 9.9 * Continue to monitor (5) Rheumatoid arthritis in remission: Code(s): M06.9 - Rheumatoid arthritis, unspecified Status: Acute Assessment and Plan: Maintained on methotrexate weekly, low-dose prednisone daily, and golimumab infusions q8 weeks * Continue outpatient Rheumatology follow-up (6) Hypothyroidism, unspecified: Qualifiers: Hypothyroidism type: acquired Qualified Code(s): E03.9 - Hypothyroidism, unspecified Code(s): E03.9 - Hypothyroidism, unspecified Status: Acute Assessment and Plan: TSH is within normal limits * Continue levothyroxine (7) Type 2 diabetes mellitus without complication, without long-term current use of insulin: Code(s): E11.9 - Type 2 diabetes mellitus without complications Status: Acute Assessment and Plan: No longer taking medication * Fasting glucose 126 * Last A1c in December 2020 was 5.3 * Check updated A1c (8) Elevated blood pressure reading: Code(s): R03.0 - Elevated blood-pressure reading, without diagnosis of hypertension Status: Acute Assessment and Plan: Blood pressure has been elevated to 153/100 with automatic Cuff * Recheck manual blood pressure * Monitor blood pressure trends * He is not on any antihypertensive agents Subjective Date/time seen: 04/05/21 10:00 Interval history: Date of service: 04/05/2021 Ras Digna Moreno is a 70-year-old male with a history of hypertension, anxiety, hypoth
--- NOTE | 2021-04-05 10:00 | PM.IMPN ---
Progress Note: A&P Assessment and Plan (1) Altered mental status: Qualifiers: Altered mental status type: transient alteration of awareness Qualified Code(s): R40.4 - Transient alteration of awareness Code(s): R41.82 - Altered mental status, unspecified Status: Acute Assessment and Plan: Presented with odd behavior and difficulty word finding. He is A&O x3. Cannot accurately state the year Head CT showed no acute intracranial abnormalities MRI is pending Appreciate Neurology consultation TSH and ammonia are normal. Will check vitamin B12 and folate. Urine tox screen positive for benzodiazepines and patient is on alprazolam. Patient not been sleeping which could contribute to odd behavior and confusion. Melatonin 3 mg qHS Possibly underlying dementia though patients son reports no history of forgetfulness, etc (2) Gait disturbance: Code(s): R26.9 - Unspecified abnormalities of gait and mobility Status: Acute Assessment and Plan: Likely secondary to rheumatoid arthritis Patient's son reports patient has functional ability is dependent on when his last infusion was Also may be worsened by peripheral neuropathy. Continue gabapentin Appreciate PT/OT eval Fall precautions (3) Urinary incontinence: Code(s): R32 - Unspecified urinary incontinence Status: Acute Assessment and Plan: New onset incontinence the past 2-3 days Feels he is not emptying his bladder Bladder scan to ensure no retention No evidence of obstruction. Renal function is normal UA without concerns for infections Continue to monitor Consider urology consultation/referral if persistent (4) Serum calcium elevated: Code(s): E83.52 - Hypercalcemia Status: Acute Assessment and Plan: Calcium slightly elevated up to 10.8 on presentation Review of labs demonstrates history of mildly elevated calcium levels Calcium improved with IV fluid rehydration to 9.9 Continue to monitor (5) Rheumatoid arthritis in remission: Code(s): M06.9 - Rheumatoid arthritis, unspecified Status: Acute Assessment and Plan: Maintained on methotrexate weekly, low-dose prednisone daily, and golimumab infusions q8 weeks Continue outpatient Rheumatology follow-up (6) Hypothyroidism, unspecified: Qualifiers: Hypothyroidism type: acquired Qualified Code(s): E03.9 - Hypothyroidism, unspecified Code(s): E03.9 - Hypothyroidism, unspecified Status: Acute Assessment and Plan: TSH is within normal limits Continue levothyroxine (7) Type 2 diabetes mellitus without complication, without long-term current use of insulin: Code(s): E11.9 - Type 2 diabetes mellitus without complications Status: Acute Assessment and Plan: No longer taking medication Fasting glucose 126 Last A1c in December 2020 was 5.3 Check updated A1c (8) Elevated blood pressure reading: Code(s): R03.0 - Elevated blood-pressure reading, without diagnosis of hypertension Status: Acute Assessment and Plan: Blood pressure has been elevated to 153/100 with automatic Cuff Recheck manual blood pressure Monitor blood pressure trends He is not on any antihypertensive agents Subjective Date/time seen: 04/05/21 10:00 Interval history: Date of service: 04/05/2021 Ras Moreno is a 70-year-old male with a history of hypertension, anxiety, hypothyroidism, rheumatoid arthritis maintained on methotrexate and golimumab infusions every 8 weeks who is seen in follow-up for altered mental status. The patient tells me that 3 days ago he was not able to sleep at all during the night. The next morning when he was trying to make coffee he microwaved his TV remote. After the fact, he realized this behavior was Od. His son also noted that he had issues with word-finding and just some overall confusion. He also notes that he
[2021-04-05 10:13] LABS: Anisocytosis 1+ (NORMAL); Ovalocytes 1+ (NORMAL); Platelet Estimate Adequate (Adequate)
[2021-04-05] MEDS: ENOXAPARIN 40 MG/0.4 ML SYRINGE SUB-Q (11:01)
--- NOTE | 2021-04-05 14:53 | PC.NURSE ---
PT TO MRI FOR TEST
[2021-04-05 17:27] LABS: Folic Acid 12.6 ng/mL (2.76->20)
--- NOTE | 2021-04-05 18:22 | ADMGEN ---
This patient, Ras Moreno, was admitted to Medical Room 251-01. Patient/family oriented to hospital policies and general routines including ID bracelet, bed and alarms, visiting hours, pain management, procedures, bathroom and other care routines, personal items, smoking policy, room service/diet, and visiting hours. Information on how to activate the Rapid Response Team has been discussed. Patient/Family are encouraged to report perceived risks to care and to ask questions if they do not understand what they are told or what they should do.
[2021-04-05] MEDS: MELATONIN 3 MG TABLET PO (20:23)
[2021-04-05] MEDS: ALPRAZolam (*CRX) 0.5 MG TABLET PO (23:19)
[2021-04-06] VITALS (9 sets, daily range): BP systolic 145–166; BP diastolic 83–92; PULSE 78–103; RESP 18–21; TEMP 36.2–36.8; O2SAT 99–100
[2021-04-06 05:49] LABS: Hematocrit 41.5 % (42.0-52.0); Hemoglobin 13.5 g/dL (14.0-18.0); Mean Corpuscular HGB Conc 32.5 g/dl (32-36); Mean Corpuscular Volume 89.2 fl (80-100); Mean Platelet Volume 10.9 fl (7.4-10.4); Platelet Count Result 190 k/mm3 (150-375); Red Blood Count 4.65 M/mm3 (4.6-6.20); Red Cell Distribution Width 17.3 % (11.5-14.5); White Blood Count 4.6 K/mm3 (4.5-10.0)
[2021-04-06 05:58] LABS: Anion Gap 10 mmol/L (8-16); Blood Urea Nitrogen 12 mg/dL (9-20); Calcium 10.1 mg/dL (8.4-10.2); Carbon Dioxide 27 mmol/L (22-30); Chloride 99 mmol/L (98-107); Estimated CRCL calculation 76 ml/min; Estimated Glomerular Filt Rate > 60; Glucose 101 mg/dL (65-110); Potassium 3.7 mmol/L (3.4-5.0); Sodium 136 mmol/L (137-145)
[2021-04-06 06:15] LABS: Hemoglobin A1C 5.3 % (<5.7)
[2021-04-06] MEDS: FOLIC ACID 1 MG TABLET PO (08:33)
[2021-04-06] MEDS: PANTOPRAZOLE 40 MG TABLET PO ×2 (08:33→21:25)
[2021-04-06] MEDS: ENOXAPARIN 40 MG/0.4 ML SYRINGE SUB-Q (08:33)
[2021-04-06] MEDS: ROSUVASTATIN 10 MG TABLET 20 MG PO (08:33)
[2021-04-06] MEDS: ACETAMINOPHEN 325 MG TABLET 650 MG PO ×2 (09:27→18:34)
[2021-04-06] MEDS: ALPRAZolam (*CRX) 0.5 MG TABLET PO ×2 (10:44→18:34)
[2021-04-06] MEDS: DULoxetine HCL 60 MG CAPSULE.DR PO (10:44)
--- NOTE | 2021-04-06 12:05 | WPDNEURCNPN ---
Assessment and Plan Additional Plan Gait dysfunction with the complaints of weakness in both lower extremities and normal MRI of the brain without evidence of midline lesions, negative x-ray of the chest, normal aorta and renal ultrasound, will benefit from MRI of the cervical spine and subsequently EMG and nerve conduction studies to rule out the possibility of cervical myelopathy and neuropathy Consult date: 04/06/21 HPI: Ras Moreno is a 70 year old male admitted to the hospital for the complaints of change in the mental status in addition to the ongoing history of 1. Rheumatoid arthritis 2. Hypothyroidism 3. GERD 4. Hyperparathyroidism 5. Chronic hypercalcemia 6. History of getting infusion every 8 weeks of Simponi he was brought to the emergency room after he was referred from a local urgent care after his son brought him in due to altered mental status reportedly was fine going to bed in the morning he puts a remote control in the microwave and coke did then called his daughter and ask if she knew someone in the neighborhood that could fix the remote at that time he was also noted to have word-finding difficulties and were also rambling in conversation he was not complaining of any generalized symptomatology though he complains of paresthesia of both lower extremities also difficulties in ambulation in addition to ongoing difficulties with memory, he has been taking multiple medications including methotrexate aspirin alprazolam prednisone 2.5 mg daily gabapentin 300 mg at night and levothyroxine 100 micro g daily. Review of Systems Review of Systems: All systems reviewed & are unremarkable except as noted in HPI and below PMFSH Past Medical History Medical History Anxiety Balanitis COVID-19 vaccine series completed Elevated LFTs Essential hypertension Establishing care with new doctor, encounter for YEE (generalized anxiety disorder) Gastro-esophageal reflux disease without esophagitis Gastroesophageal reflux disease History of tobacco use Hypercalcemia Hypersomnia Hypothyroidism, unspecified Obesity (BMI 30-39.9) LUIS (obstructive sleep apnea) Personal history of COVID-19 Pharyngitis Pure hypercholesterolemia Rheumatoid arthritis, unspecified Screening for AAA (abdominal aortic aneurysm) Secondary hyperparathyroidism Secondary hypoparathyroidism Serum calcium elevated Tachycardia Type 2 diabetes mellitus without complication, without long-term current use of insulin Vaccine counseling Vitamin D deficiency, unspecified Surgical History Surgical History S/P Mohs surgery for basal cell carcinoma Family History Family History Father Family history of malignant neoplasm Cancer Sibling Family history of malignant neoplasm Patient's sister is in good health Cancer Mother Patient's mother is in good health Thyroid disorder Social History Social History Social History: Smoking packs per day: 1 Smoking cigarettes per day: 20.0 Years smoked: 47 Smoking pack-years: 47.00 Smoking status: Former smoker Tobacco type: cigarettes Second hand tobacco smoke exposure: No Smoking end date: 03/27/10 Alcohol intake: never Alcohol use details: Social Substance use: never Substance use type: does not use Gender identity (if verbalized by the patient): Male Sexual Orientation (if Verbalized by the Patient): Straight or Heterosexual Spiritual care concerns: No Meds Home Medications and Allergies Home Medications Medication Instructions Recorded Confirmed Type folic acid 1 mg tablet 1 mg PO DAILY 03/14/19 04/05/21 History golimumab 100 mg/mL subcutaneous 50 mg SUB-Q .COMPLEX 03/14/19 04/05/21 History pen injector methotrexate sodium 2.5 mg tablet 2.5 mg PO WEEKLY 03/14/1904/05
--- NOTE | 2021-04-06 12:50 | ECG_ITS ---
Measurements Intervals [place] Rate: 94 P: 24 NH: 145 QRS: 49 QRSD: 85 T: 40 QT: 371 QTc: 466 Interpretive Statements SINUS RHYTHM INCOMPLETE RIGHT BUNDLE BRANCH BLOCK BORDERLINE ECG Electronically Signed On 04-06-2021 13:18:25 [employer] by Aroldo Dowling D.O.
--- NOTE | 2021-04-06 12:52 | P.PNIM_ITS ---
Progress Note: A&P Assessment and Plan (1) Altered mental status: Qualifiers: Altered mental status type: transient alteration of awareness Qualified Code(s): R40.4 - Transient alteration of awareness Code(s): R41.82 - Altered mental status, unspecified Status: Acute Assessment and Plan: Presented with odd behavior and difficulty word finding. * Mental status has improved today. Less confusion noted. * He remains A&O x3. Cannot accurately state the year * Head CT showed no acute intracranial abnormalities * Brain MRI showed no acute finding * Appreciate Neurology consultation. Will proceed with MRI of the cervical spine per Neurology recommendations * TSH, ammonia, B12, folate are normal. * Urine tox screen positive for benzodiazepines and patient is on alprazolam. Continue low dose alprazolam to avoid withdrawal symptoms, taper to TID prn * Patient not been sleeping which could contribute to odd behavior and confusion. Continue melatonin 3 mg qHS * Possibly underlying dementia though patients son reports no history of forgetfulness, etc (2) Gait disturbance: Code(s): R26.9 - Unspecified abnormalities of gait and mobility Status: Acute Assessment and Plan: Likely secondary to rheumatoid arthritis * Patient's son reports functional ability is dependent on when his last infusion was * Also may be worsened by peripheral neuropathy. Continue gabapentin * Cervical spine MRI pending. Also will need outpatient EMG and NCS per Neurology recommendations * Appreciate PT/OT evals * Fall precautions (3) Urinary incontinence: Code(s): R32 - Unspecified urinary incontinence Status: Acute Assessment and Plan: New onset incontinence 2-3 days prior to admission * No evidence of retention on bladder scan * No evidence of obstruction. Renal function is normal * UA without concerns for infections * Improved. Patient denies further incontinence * Continue to monitor (4) Serum calcium elevated: Code(s): E83.52 - Hypercalcemia Status: Acute Assessment and Plan: Calcium slightly elevated up to 10.8 on presentation * Review of labs demonstrates history of mildly elevated calcium levels * Calcium improved with IV fluid rehydration * Continue to monitor (5) Rheumatoid arthritis in remission: Code(s): M06.9 - Rheumatoid arthritis, unspecified Status: Acute Assessment and Plan: Maintained on methotrexate weekly, low-dose prednisone and leflunomide daily, and golimumab infusions q8 weeks * Continue outpatient Rheumatology follow-up * Resume home prednisone and leflunomide (6) Hypothyroidism, unspecified: Qualifiers: Hypothyroidism type: acquired Qualified Code(s): E03.9 - Hypothyroidism, unspecified Code(s): E03.9 - Hypothyroidism, unspecified Status: Acute Assessment and Plan: TSH is within normal limits * Continue levothyroxine (7) Type 2 diabetes mellitus without complication, without long-term current use of insulin: Code(s): E11.9 - Type 2 diabetes mellitus without complications Status: Acute Assessment and Plan: No longer taking medication * A1c is 5.3 * No need for further monitoring (8) Elevated blood pressure reading: Code(s): R03.0 - Elevated blood-pressure reading, without diagnosis of hypertension Status: Acute Assessment and Plan: Blood pressure has been elevated. Last BP 164/86 * Patient denies history of hypertension a
--- NOTE | 2021-04-06 12:52 | PM.IMPN ---
Progress Note: A&P Assessment and Plan (1) Altered mental status: Qualifiers: Altered mental status type: transient alteration of awareness Qualified Code(s): R40.4 - Transient alteration of awareness Code(s): R41.82 - Altered mental status, unspecified Status: Acute Assessment and Plan: Presented with odd behavior and difficulty word finding. Mental status has improved today. Less confusion noted. He remains A&O x3. Cannot accurately state the year Head CT showed no acute intracranial abnormalities Brain MRI showed no acute finding Appreciate Neurology consultation. Will proceed with MRI of the cervical spine per Neurology recommendations TSH, ammonia, B12, folate are normal. Urine tox screen positive for benzodiazepines and patient is on alprazolam. Continue low dose alprazolam to avoid withdrawal symptoms, taper to TID prn Patient not been sleeping which could contribute to odd behavior and confusion. Continue melatonin 3 mg qHS Possibly underlying dementia though patients son reports no history of forgetfulness, etc (2) Gait disturbance: Code(s): R26.9 - Unspecified abnormalities of gait and mobility Status: Acute Assessment and Plan: Likely secondary to rheumatoid arthritis Patient's son reports functional ability is dependent on when his last infusion was Also may be worsened by peripheral neuropathy. Continue gabapentin Cervical spine MRI pending. Also will need outpatient EMG and NCS per Neurology recommendations Appreciate PT/OT evals Fall precautions (3) Urinary incontinence: Code(s): R32 - Unspecified urinary incontinence Status: Acute Assessment and Plan: New onset incontinence 2-3 days prior to admission No evidence of retention on bladder scan No evidence of obstruction. Renal function is normal UA without concerns for infections Improved. Patient denies further incontinence Continue to monitor (4) Serum calcium elevated: Code(s): E83.52 - Hypercalcemia Status: Acute Assessment and Plan: Calcium slightly elevated up to 10.8 on presentation Review of labs demonstrates history of mildly elevated calcium levels Calcium improved with IV fluid rehydration Continue to monitor (5) Rheumatoid arthritis in remission: Code(s): M06.9 - Rheumatoid arthritis, unspecified Status: Acute Assessment and Plan: Maintained on methotrexate weekly, low-dose prednisone and leflunomide daily, and golimumab infusions q8 weeks Continue outpatient Rheumatology follow-up Resume home prednisone and leflunomide (6) Hypothyroidism, unspecified: Qualifiers: Hypothyroidism type: acquired Qualified Code(s): E03.9 - Hypothyroidism, unspecified Code(s): E03.9 - Hypothyroidism, unspecified Status: Acute Assessment and Plan: TSH is within normal limits Continue levothyroxine (7) Type 2 diabetes mellitus without complication, without long-term current use of insulin: Code(s): E11.9 - Type 2 diabetes mellitus without complications Status: Acute Assessment and Plan: No longer taking medication A1c is 5.3 No need for further monitoring (8) Elevated blood pressure reading: Code(s): R03.0 - Elevated blood-pressure reading, without diagnosis of hypertension Status: Acute Assessment and Plan: Blood pressure has been elevated. Last BP 164/86 Patient denies history of hypertension and he is not on antihypertensive agents Monitor blood pressure trends Consider addition of antihypertensive agent. At this time, BP seems to be slowly improving and will continue monitoring (9) Sinus tachycardia: Code(s): R00.0 - Tachycardia, unspecified Status: Acute Assessment and Plan: Telemetry reviewed and showed sinus tach 100-115. Etiology for this unclear. Patient is asymptomatic Possibly anxiety. Adminis
--- NOTE | 2021-04-06 14:56 | PHAR ---
HOME MED VERIFIED LEFLUNOMIDE 10MG TABLETS TAKE 1 TABLET DAILY
[2021-04-06] MEDS: GABAPENTIN 300 MG CAPSULE 900 MG PO (21:24)
[2021-04-06] MEDS: FAMOTIDINE 20 MG TABLET 40 MG PO (21:24)
[2021-04-06] MEDS: MELATONIN 3 MG TABLET PO (21:25)
[2021-04-07] VITALS (9 sets, daily range): BP systolic 143–164; BP diastolic 81–91; PULSE 72–120; RESP 16–20; TEMP 36.3–36.6; O2SAT 95–99
[2021-04-07 06:10] LABS: Hematocrit 40.5 % (42.0-52.0); Hemoglobin 13.5 g/dL (14.0-18.0); Mean Corpuscular HGB Conc 33.3 g/dl (32-36); Mean Corpuscular Hemoglobin 29.2 pg (26-34); Mean Corpuscular Volume 87.7 fl (80-100); Mean Platelet Volume 10.7 fl (7.4-10.4); Platelet Count Result 191 k/mm3 (150-375); Red Blood Count 4.62 M/mm3 (4.6-6.20); Red Cell Distribution Width 17.2 % (11.5-14.5); White Blood Count 4.3 K/mm3 (4.5-10.0)
[2021-04-07 06:25] LABS: Anion Gap 7 mmol/L (8-16); Blood Urea Nitrogen 13 mg/dL (9-20); Calcium 9.9 mg/dL (8.4-10.2); Carbon Dioxide 26 mmol/L (22-30); Chloride 102 mmol/L (98-107); Estimated CRCL calculation 68 ml/min; Estimated Glomerular Filt Rate > 60; Glucose 105 mg/dL (65-110); Potassium 3.7 mmol/L (3.4-5.0); Sodium 135 mmol/L (137-145)
[2021-04-07] MEDS: PANTOPRAZOLE 40 MG TABLET PO ×2 (08:12→21:35)
[2021-04-07] MEDS: ENOXAPARIN 40 MG/0.4 ML SYRINGE SUB-Q (08:12)
[2021-04-07] MEDS: FOLIC ACID 1 MG TABLET PO (08:12)
[2021-04-07] MEDS: ROSUVASTATIN 10 MG TABLET 20 MG PO (08:12)
[2021-04-07] MEDS: DULoxetine HCL 60 MG CAPSULE.DR PO (08:12)
--- NOTE | 2021-04-07 09:13 | WPDNEUROLOGY ---
Neurology EEG Report General Information Date of Study: 04/06/21 TEST eeg DIAGNOSIS confusion CONDITION OF RECORDING drowsy and sleep EEG NUMBER [id number] CLINICAL HISTORY patient reported he is here because he put his TV remote in the microwave yesterday and turn it on EEG DESCRIPTION background rhythm consists of medium voltage 5 to 7 hertz per 2nd theta activity admixed with intermittent low-voltage beta activity. Bilateral symmetrical sleep activity seen during sleep. Hyperventilation not done photic stimulation not done. Non paroxysmal. Nonfocal. Nonlateralizing. IMPRESSION Abnormal record due to the presence of bihemispheric theta and delta activity without any paroxysmal discharge. These abnormalities are suggestive of underlying organic or metabolic encephalopathy or neuro degenerative process clinical correlation recommended.
--- NOTE | 2021-04-07 10:26 | PM.IMPN ---
Progress Note: A&P Assessment and Plan (1) Altered mental status: Qualifiers: Altered mental status type: transient alteration of awareness Qualified Code(s): R40.4 - Transient alteration of awareness Code(s): R41.82 - Altered mental status, unspecified Status: Acute Assessment and Plan: Concern for dementia, noted with with odd behavior and difficulty word finding Head CT showed no acute intracranial abnormalities Brain MRI--> mo acute intracranial findings; chronic age related finding Appreciate Neurology consultation MRI of the cervical spine per Neurology recommendations TSH, ammonia, B12, folate are normal. Urine tox screen positive for benzodiazepines and patient is on alprazolam Continue low dose alprazolam to avoid withdrawal symptoms, taper to TID prn Patient not been sleeping which could contribute to odd behavior and confusion. Continue melatonin 3 mg qHS EEG-->abnormalities are suggestive of underlying organic or metabolic encephalopathy or neuro degenerative process (2) Gait disturbance: Code(s): R26.9 - Unspecified abnormalities of gait and mobility Status: Acute Assessment and Plan: Patient's son reports functional ability is dependent on when his last infusion was Also may be worsened by peripheral neuropathy. Continue gabapentin Cervical spine MRI-->moderate cervical spondylosis Will need outpatient EMG and NCS per Neurology recommendations Appreciate PT/OT evals Fall precautions (3) Urinary incontinence: Code(s): R32 - Unspecified urinary incontinence Status: Acute Assessment and Plan: New onset incontinence 2-3 days prior to admission No evidence of retention on bladder scan No evidence of obstruction. Renal function is normal UA without concerns for infections Improved. Patient denies further incontinence Continue to monitor (4) Serum calcium elevated: Code(s): E83.52 - Hypercalcemia Status: Acute Assessment and Plan: Resolved Calcium slightly elevated up to 10.8 on presentation Review of labs demonstrates history of mildly elevated calcium levels Calcium improved with IV fluid rehydration Continue to monitor (5) Rheumatoid arthritis in remission: Code(s): M06.9 - Rheumatoid arthritis, unspecified Status: Acute Assessment and Plan: Maintained on methotrexate weekly, low-dose prednisone and leflunomide daily, and golimumab infusions q8 weeks Continue outpatient Rheumatology follow-up Resume home prednisone and leflunomide (6) Hypothyroidism, unspecified: Qualifiers: Hypothyroidism type: acquired Qualified Code(s): E03.9 - Hypothyroidism, unspecified Code(s): E03.9 - Hypothyroidism, unspecified Status: Acute Assessment and Plan: TSH is within normal limits Continue levothyroxine (7) Type 2 diabetes mellitus without complication, without long-term current use of insulin: Code(s): E11.9 - Type 2 diabetes mellitus without complications Status: Acute Assessment and Plan: No longer taking medication A1c is 5.3 No need for further monitoring (8) Elevated blood pressure reading: Code(s): R03.0 - Elevated blood-pressure reading, without diagnosis of hypertension Status: Acute Assessment and Plan: Blood pressure has been elevated, improving Patient denies history of hypertension and he is not on antihypertensive agents Monitor blood pressure trends Consider addition of antihypertensive agent BP seems to be slowly improving and will continue monitoring (9) Sinus tachycardia: Code(s): R00.0 - Tachycardia, unspecified Status: Acute Assessment and Plan: Resolved Etiology for this unclear. Patient is asymptomatic Possibly anxiety Continue low-dose alprazolam EKG-->SINUS RHYTHM INCOMPLETE RIGHT BUNDLE BRANCH BLOCK Patient denies being on any beta-blockers Continue to monitor heart rate Additional Plan Code status:
--- NOTE | 2021-04-07 12:08 | WPDNEUROPN ---
Progress Note: A&P Additional Plan 1. Dementia with abnormal EEG without evidence of any paroxysmal activity and with the blood workup is still pending for B12 and folate level 2. All the previous diagnoses as mentioned above 3. Normal MRI of the brain with arthritic MRI of the cervical spine but no significant stenosis to account for the cervical myelopathy. Personally talked to his son who will get in touch with his careers counsellor and then he will get in touch with us for the ongoing treatment for the ongoing dementia in the meantime B12 folate levels are pending Subjective Date/time seen: 04/07/21 12:08 70 years old right-handed male admitted to the hospital for the complaints of weakness in both lower extremities in addition to the history of 1. Rheumatoid arthritis 2. Hypothyroidism 3. GERD 4. Hyperparathyroidism 5. Chronic hypercalcemia and 6. History of getting infusion every 8 weeks of Simponi neuro consultation was obtained because patient had word-finding difficulties and was rambling in conversation in addition to the ongoing difficulties with memory and also putting his remote control in the microwave and cook it raising the possibility of ongoing dementia Review of Systems Review of Systems: All systems reviewed & are unremarkable except as noted in HPI and below Exam Const: General: cooperative, comfortable and no acute distress Nutritional Appearance: overweight Orientation/consciousness: oriented to person Limitations: no limitations HENMT: Head: normal to inspection Ears: hearing grossly normal bilaterally General nose exam: Normal external nose present Eyes: General: appearance normal, both eyes and all related structures Neck: Neck: full ROM Resp: Effort & Inspection: normal respiratory effort Neuro: General: oriented to person and oriented to place Cranial nerves: Yes CN's II-XII intact bilaterally Cognition (Neuro): abnormal cognition Speech: normal speech Motor exam (neuro): 5/5 motor strength present throughout Sensory Exam: normal sensation Objective Data Vital Signs Vital Signs: Vital Signs - 24 hr 04/06/21 13:52 04/06/21 16:00 04/06/21 20:00 Temperature 36.6 C Pulse Rate 98 93 89 Respiratory Rate 18 Blood Pressure 145/92 H Pulse Oximetry 100 04/06/21 22:00 04/07/21 00:00 04/07/21 04:00 Temperature 36.2 C L Pulse Rate 87 72 77 Respiratory Rate 21 H Blood Pressure 166/83 H Pulse Oximetry 100 04/07/21 06:00 Temperature 36.6 C Pulse Rate 79 Respiratory Rate 20 Blood Pressure 143/81 H Pulse Oximetry 99 Intake/Output Intake/Output: Intake & Output 04/04/21 04/05/21 04/06/21 04/07/21 23:59 23:59 23:59 23:59 Intake Total 1000 2000 1280 540 Output Total 300 1375 400 Balance 1000 1700 -95 140 Meds/Results Medications: Active Medications Generic Name Dose Route Start Last Admin Trade Name Freq PRN Reason Stop Dose Admin Acetaminophen 650 mg 04/05/21 10:23 04/06/21 18:34 Acetaminophen 325 Mg Tablet PO 650 mg Q4H PRN Administration Headache, pain 1-3 Alprazolam 0.5 mg 04/06/21 07:41 04/06/21 18:34 Alprazolam (*Crx) 0.5 Mg Tablet PO 0.5 mg TID PRN Administration Anxiety Duloxetine HCl 60 mg 04/06/21 09:00 04/07/21 08:12 Duloxetine Hcl 60 Mg Capsule.Dr PO 60 mg DAILY ASTER Administration Enoxaparin Sodium 40 mg 04/05/21 10:30 04/07/21 08:12 Enoxaparin 40 Mg/0.4 Ml Syringe SUB-Q 40 mg DAILY ASTER Administration Famotidine 40 mg 04/06/21 21:00 04/06/21 21:24 Famotidine 20 Mg Tablet PO 40 mg HS ASTER Administration Folic Acid 1 mg 04/06/21 09:00 04/07/21 08:12 Folic Acid 1 Mg Tablet PO 1 mg DAILY ASTER Administration Gabapentin 900 mg 04/06/21 21:00 04/06/21 21:24 Gabapentin 300 Mg Capsule PO 900 mg HS ASTER Administration Home Med 1 each 04/06/21 16:00 04/07/21 08:12 Leflunomide 10 Mg Tablet Home Med PO 05/06/21 15:59 1 each DAILY ASTER Administration
[2021-04-07] MEDS: ALPRAZolam (*CRX) 0.5 MG TABLET PO (21:34)
[2021-04-07] MEDS: FAMOTIDINE 20 MG TABLET 40 MG PO (21:35)
[2021-04-07] MEDS: MELATONIN 3 MG TABLET PO (21:35)
[2021-04-07] MEDS: GABAPENTIN 300 MG CAPSULE 900 MG PO (21:35)
[2021-04-08] VITALS (8 sets, daily range): BP systolic 147–171; BP diastolic 85–96; PULSE 76–114; RESP 20; TEMP 35.9–36.3; O2SAT 98–99
[2021-04-08] MEDS: PANTOPRAZOLE 40 MG TABLET PO ×2 (09:24→20:06)
[2021-04-08] MEDS: ENOXAPARIN 40 MG/0.4 ML SYRINGE SUB-Q (09:24)
[2021-04-08] MEDS: ROSUVASTATIN 10 MG TABLET 20 MG PO (09:24)
[2021-04-08] MEDS: DULoxetine HCL 60 MG CAPSULE.DR PO (09:24)
[2021-04-08] MEDS: FOLIC ACID 1 MG TABLET PO (09:25)
[2021-04-08 10:26] LABS: Basophils Absolute Auto 0.1 K/mm3 (0.0-0.1); Basophils Percent Auto 1.3 % (0.2-1.2); Eosinophils Absolute Auto 0.2 K/mm3 (0-0.3); Eosinophils Percent Auto 3.4 % (0-4.4); Hematocrit 40.4 % (42.0-52.0); Hemoglobin 13.7 g/dL (14.0-18.0); Immature Granulocyte Absolute 0.01 K/mm3 (0.00-0.031); Immature Granulocyte Percent A 0.2 % (0-0.5); Lymphocytes Absolute Auto 1.22 K/mm3 (0.9-3.2); Lymphocytes Percent Auto 27.3 % (18.3-44.2); Mean Corpuscular HGB Conc 33.9 g/dl (32-36); Mean Corpuscular Volume 85.6 fl (80-100); Monocytes Percent Auto 22.4 % (2.6-8.5); Neutrophils Percent Auto 45.4 % (45.5-73.1); Platelet Count Result 202 k/mm3 (150-375); Red Blood Count 4.72 M/mm3 (4.6-6.20); Red Cell Distribution Width 17.1 % (11.5-14.5); White Blood Count 4.5 K/mm3 (4.5-10.0)
[2021-04-08 10:33] LABS: Alanine Aminotransferase 37 U/L (4-50); Albumin Level 4.2 g/dL (3.5-5.1); Alkaline Phosphatase 99 U/L (38-126); Anion Gap 8 mmol/L (8-16); Aspartate Amino Transferase 42 U/L (17-59); Bilirubin,Total 0.9 mg/dL (0.2-1.3); Blood Urea Nitrogen 15 mg/dL (9-20); Calcium 10.3 mg/dL (8.4-10.2); Carbon Dioxide 27 mmol/L (22-30); Chloride 99 mmol/L (98-107); Estimated CRCL calculation 63 ml/min; Estimated Glomerular Filt Rate > 60; Glucose 168 mg/dL (65-110); Potassium 3.7 mmol/L (3.4-5.0); Sodium 134 mmol/L (137-145)
[2021-04-08] MEDS: SODIUM CHLORIDE 0.9% IV 500 ML 250 ML IV CONT (11:24)
--- NOTE | 2021-04-08 11:45 | PM.IMPN ---
Progress Note: A&P Assessment and Plan (1) Altered mental status: Qualifiers: Altered mental status type: transient alteration of awareness Qualified Code(s): R40.4 - Transient alteration of awareness Code(s): R41.82 - Altered mental status, unspecified Status: Acute Assessment and Plan: Concern for dementia and/or Parkinson's and/or some Neurological disorder, noted with with odd behavior, insomnia, confusion, difficulty word finding, difficulty with high functioning Head CT showed no acute intracranial abnormalities Brain MRI--> mo acute intracranial findings; chronic age related finding Appreciate Neurology consultation and discussion MRI of the cervical spine per Neurology recommendations TSH, ammonia, B12, folate are normal. They weren't in Feb. Urine tox screen positive for benzodiazepines and patient is on alprazolam - discontinued Alprazolam and D/C'd Gabapentin. Checking Neurontin level. Continue melatonin 3 mg qHS EEG-->abnormalities are suggestive of underlying organic or metabolic encephalopathy or neuro degenerative process Consider LP/spinal tap and spinal fluid cultures/analysis. (2) Gait disturbance: Code(s): R26.9 - Unspecified abnormalities of gait and mobility Status: Acute Assessment and Plan: Patient's son reports functional ability is dependent on when his last infusion was He got his last Simponi (golimumab) infusion in 2020 per his Auto Design Detailer Also may be worsened by peripheral neuropathy. Cervical spine MRI-->moderate cervical spondylosis -->Will need outpatient EMG and NCS with Neurology Continue PT/OT Fall /aspiration precautions (3) Urinary incontinence: Code(s): R32 - Unspecified urinary incontinence Status: Acute Assessment and Plan: New onset incontinence 2-3 days prior to admission No evidence of retention on bladder scan No evidence of obstruction. Renal function is normal UA without concerns for infections at admission, repeating UA and urine cx now. Strict I/Os. Bladder training. (4) Serum calcium elevated: Code(s): E83.52 - Hypercalcemia Status: Acute Assessment and Plan: Resolved Calcium slightly elevated up to 10.8 on presentation Review of labs demonstrates history of mildly elevated calcium levels Calcium improved with IV fluid rehydration Continue to monitor ionized calcium pending (5) Rheumatoid arthritis in remission: Code(s): M06.9 - Rheumatoid arthritis, unspecified Status: Acute Assessment and Plan: Maintained on methotrexate weekly, low-dose prednisone and leflunomide daily, and golimumab infusions q8 weeks Continue outpatient Rheumatology follow-up HOLD home prednisone and leflunomide (6) Hypothyroidism, unspecified: Qualifiers: Hypothyroidism type: acquired Qualified Code(s): E03.9 - Hypothyroidism, unspecified Code(s): E03.9 - Hypothyroidism, unspecified Status: Acute Assessment and Plan: TSH is within normal limits now that he was taking home Levothyroxine doses. back in Feb. TSH was elevated. Continue levothyroxine (7) Type 2 diabetes mellitus without complication, without long-term current use of insulin: Code(s): E11.9 - Type 2 diabetes mellitus without complications Status: Acute Assessment and Plan: No longer taking medication A1c is 5.3 95 - 168 glucose levels No need for further monitoring (8) Elevated blood pressure reading: Code(s): R03.0 - Elevated blood-pressure reading, without diagnosis of hypertension Status: Acute Assessment and Plan: Blood pressure has been elevated, likely related to HYPERPARATHYROIDISM Patient denies history of hypertension and he is not on antihypertensive agents Monitor blood pressures , SBPs 140s, stable. (9) Sinus tachycardia: Code(s): R00.0 - Tachycardia, unspecified Status: Acute Assessment and Plan: Resolved Etiolog
[2021-04-08] MEDS: LEVOTHYROXINE SODIUM 100 MCG TABLET PO (12:46)
[2021-04-08 14:29] LABS: Add Urine Microscopic? YES; Appearance Urine Clear (Clear); Bilirubin Urine Negative (Negative); Blood Urine Negative (Negative); Color Urine Amber (Yellow); Glucose Urine UA Negative (Negative); Ketones Urine Trace mg/dL (Negative); Leukocyte Esterase Ur Negative LEU/UL (NEGATIVE); Mucus Urine Rare /lpf; Nitrate Urine Negative (Negative); Protein Urine 2+ mg/dL (Negative); Specific Grav Ur 1.027 (1.001-1.035); Urobilinogen Urine Negative mg/dL (<2.0)
[2021-04-08] MEDS: MELATONIN 3 MG TABLET PO (20:05)
[2021-04-08] MEDS: FAMOTIDINE 20 MG TABLET 40 MG PO (20:05)
[2021-04-09] VITALS (12 sets, daily range): BP systolic 138–195; BP diastolic 79–100; PULSE 74–118; RESP 18–22; TEMP 35.8–36.7; O2SAT 94–100
[2021-04-09 04:09] LABS: Ionized Calcium 5.4 mg/dL (4.8-5.6)
[2021-04-09] MEDS: LEVOTHYROXINE SODIUM 100 MCG TABLET PO (05:46)
[2021-04-09 06:13] LABS: Anion Gap 7 mmol/L (8-16); Blood Urea Nitrogen 15 mg/dL (9-20); Calcium 9.8 mg/dL (8.4-10.2); Carbon Dioxide 26 mmol/L (22-30); Chloride 100 mmol/L (98-107); Estimated CRCL calculation 61 ml/min; Estimated Glomerular Filt Rate > 60; Glucose 106 mg/dL (65-110); Potassium 3.3 mmol/L (3.4-5.0); Sodium 133 mmol/L (137-145)
--- NOTE | 2021-04-09 07:57 | PM.IMPN ---
Progress Note: A&P Assessment and Plan (1) Altered mental status: Qualifiers: Altered mental status type: transient alteration of awareness Qualified Code(s): R40.4 - Transient alteration of awareness Code(s): R41.82 - Altered mental status, unspecified Status: Acute Assessment and Plan: Acute Concern for dementia and/or Parkinson's and/or some Neurological process, noted with with odd behavior, insomnia, confusion, difficulty word finding, difficulty with high functioning Head CT showed no acute intracranial abnormalities Brain MRI--> mo acute intracranial findings; chronic age related finding Appreciate Neurology consultation and discussion MRI of the cervical spine per Neurology recommendations TSH, ammonia, B12, folate, calcium are normal. They were not normal in Feb. Urine tox screen positive for benzodiazepines and patient is on alprazolam - discontinued Alprazolam and D/C'd Gabapentin. Checking Neurontin level. Continue melatonin 3 mg qHS EEG-->abnormalities are suggestive of underlying organic or metabolic encephalopathy or neuro degenerative process Consider LP/spinal tap and spinal fluid cultures/analysis. (2) Gait disturbance: Code(s): R26.9 - Unspecified abnormalities of gait and mobility Status: Acute Assessment and Plan: Patient's son reports functional ability is dependent on when his last infusion was He got his last Simponi (golimumab) infusion in 2020 per his Slabbing Machine Operator Also may be worsened by peripheral neuropathy. Cervical spine MRI-->moderate cervical spondylosis -->Will need outpatient EMG and NCS with Neurology Continue PT/OT Fall /aspiration precautions Acute Rehab evaluation (3) Urinary incontinence: Code(s): R32 - Unspecified urinary incontinence Status: Acute Assessment and Plan: New onset incontinence 2-3 days prior to admission No evidence of retention on bladder scan No evidence of obstruction. Renal function is normal UA without concerns for infections at admission, repeating UA and urine cx now. Strict I/Os. Bladder training. Continent of urine now, even overnight. (4) Serum calcium elevated: Code(s): E83.52 - Hypercalcemia Status: Acute Assessment and Plan: Resolved Calcium slightly elevated up to 10.8 on presentation Review of labs demonstrates history of mildly elevated calcium levels Calcium improved with IV fluid rehydration Continue to monitor ionized calcium pending (5) Rheumatoid arthritis in remission: Code(s): M06.9 - Rheumatoid arthritis, unspecified Status: Acute Assessment and Plan: Maintained on methotrexate weekly, low-dose prednisone and leflunomide daily, and golimumab infusions q8 weeks Continue outpatient Rheumatology follow-up HOLD home prednisone and leflunomide (6) Hypothyroidism, unspecified: Qualifiers: Hypothyroidism type: acquired Qualified Code(s): E03.9 - Hypothyroidism, unspecified Code(s): E03.9 - Hypothyroidism, unspecified Status: Acute Assessment and Plan: TSH is within normal limits now that he was taking home Levothyroxine doses. back in TSH was elevated. Continue levothyroxine because on 04/04/2021 TSH was 1.46 (much improved from Feb. ) F/U with PCP for repeat TSH in 6 weeks, at appropriate time. (7) Type 2 diabetes mellitus without complication, without long-term current use of insulin: Code(s): E11.9 - Type 2 diabetes mellitus without complications Status: Acute Assessment and Plan: No longer taking medication A1c is 5.3 95 - 168 glucose levels No need for further monitoring (8) Elevated blood pressure reading: Code(s): R03.0 - Elevated blood-pressure reading, without diagnosis of hypertension Status: Acute Assessment and Plan: Blood pressure has been elevated, likely related to HYPERPARATHYROIDISM Patient denies history of hypertension and he is not on an
[2021-04-09] MEDS: ROSUVASTATIN 10 MG TABLET 20 MG PO (08:39)
[2021-04-09] MEDS: DULoxetine HCL 60 MG CAPSULE.DR PO (08:39)
[2021-04-09] MEDS: PANTOPRAZOLE 40 MG TABLET PO ×2 (08:39→19:32)
[2021-04-09] MEDS: FOLIC ACID 1 MG TABLET PO (08:39)
[2021-04-09] MEDS: ENOXAPARIN 40 MG/0.4 ML SYRINGE SUB-Q (08:39)
[2021-04-09 17:05] LABS: Hematocrit 39.2 % (42.0-52.0); Hemoglobin 13.4 g/dL (14.0-18.0); Mean Corpuscular HGB Conc 34.2 g/dl (32-36); Mean Corpuscular Hemoglobin 28.9 pg (26-34); Mean Corpuscular Volume 84.5 fl (80-100); Mean Platelet Volume 11.1 fl (7.4-10.4); Platelet Count Result 224 k/mm3 (150-375); Red Blood Count 4.64 M/mm3 (4.6-6.20); Red Cell Distribution Width 16.6 % (11.5-14.5); White Blood Count 4.2 K/mm3 (4.5-10.0)
[2021-04-09] MEDS: POTASSIUM CHLORIDE 20 MEQ TABLET 40 MEQ PO (17:24)
--- NOTE | 2021-04-09 18:30 | PC.NURSE ---
Talked to the patient about the dulcolax suppository, he stated he did not want it and that he is not constipated. Patient is known to be confused, he denies any abdominal pain.
[2021-04-09] MEDS: FAMOTIDINE 20 MG TABLET 40 MG PO (19:32)
[2021-04-09] MEDS: MELATONIN 3 MG TABLET PO (19:32)
[2021-04-09] MEDS: SENNA/DOCUSATE SODIUM TABLET 1 TAB PO (19:32)
[2021-04-09] MEDS: hydrALAZINE HCL 20 MG/ML VIAL 10 MG IV PUSH (21:11)
[2021-04-10] VITALS: PULSE 89
[2021-04-10 03:05] VITALS: BP 169/100; PULSE 88; RESP 20; TEMP 35.8; O2SAT 99
[2021-04-10 04:00] VITALS: PULSE 100
[2021-04-10] MEDS: LEVOTHYROXINE SODIUM 100 MCG TABLET PO ×2 (05:48)
[2021-04-10 06:04] LABS: Anion Gap 10 mmol/L (8-16); Blood Urea Nitrogen 12 mg/dL (9-20); Calcium 10.6 mg/dL (8.4-10.2); Carbon Dioxide 22 mmol/L (22-30); Chloride 101 mmol/L (98-107); Estimated CRCL calculation 67 ml/min; Estimated Glomerular Filt Rate > 60; Glucose 117 mg/dL (65-110); Potassium 3.8 mmol/L (3.4-5.0); Sodium 133 mmol/L (137-145)
[2021-04-10 08:00] VITALS: PULSE 91
--- NOTE | 2021-04-10 08:00 | ECG_ITS ---
Measurements Intervals [place] Rate: 86 P: 5 [place]: 140 QRS: 50 QRSD: 82 T: 41 QT: 412 QTc: 494 Interpretive Statements SINUS RHYTHM INCOMPLETE RIGHT BUNDLE BRANCH BLOCK BASELINE WANDER- I, II, AVR, AVL, AVF BORDERLINE ECG Electronically Signed On 04-10-2021 14:06:34 [employer] by Aroldo Dowling D.O.
[2021-04-10] MEDS: ROSUVASTATIN 10 MG TABLET 20 MG PO (09:12)
[2021-04-10] MEDS: DULoxetine HCL 60 MG CAPSULE.DR PO (09:12)
[2021-04-10] MEDS: DOCUSATE SODIUM 100 MG CAPSULE PO (09:12)
[2021-04-10] MEDS: FOLIC ACID 1 MG TABLET PO (09:13)
[2021-04-10] MEDS: PANTOPRAZOLE 40 MG TABLET PO ×2 (09:13→20:01)
[2021-04-10] MEDS: ENOXAPARIN 40 MG/0.4 ML SYRINGE SUB-Q (09:13)
[2021-04-10] MEDS: amLODIPine BESYLATE 5 MG TABLET PO (09:13)
--- NOTE | 2021-04-10 09:35 | P.PNIM_ITS ---
Progress Note: A&P Assessment and Plan (1) Altered mental status: Qualifiers: Altered mental status type: transient alteration of awareness Qualified Code(s): R40.4 - Transient alteration of awareness Code(s): R41.82 - Altered mental status, unspecified Status: Acute Assessment and Plan: Acute Concern for dementia and/or Parkinson's and/or some Neurological process, noted with with odd behavior, insomnia, confusion, difficulty word finding, difficulty with high functioning Head CT showed no acute intracranial abnormalities Brain MRI--> mo acute intracranial findings; chronic age related finding Appreciate Neurology consultation and discussion MRI of the cervical spine per Neurology recommendations TSH, ammonia, B12, folate, calcium are normal. They were not normal in Feb. Urine tox screen positive for benzodiazepines and patient is on alprazolam - discontinued Alprazolam and D/C'd Gabapentin. Checking Neurontin level. Continue melatonin 3 mg qHS EEG-->abnormalities are suggestive of underlying organic or metabolic encephalopathy or neuro degenerative process Consider LP/spinal tap and spinal fluid cultures/analysis. (2) Gait disturbance: Code(s): R26.9 - Unspecified abnormalities of gait and mobility Status: Acute Assessment and Plan: Patient's son reports functional ability is dependent on when his last infusion was He got his last Simponi (golimumab) infusion in 2020 per his Communications Tower Technician Also may be worsened by peripheral neuropathy. Cervical spine MRI-->moderate cervical spondylosis -->Will need outpatient EMG and NCS with Neurology Continue PT/OT Fall /aspiration precautions Acute Rehab evaluation (3) Urinary incontinence: Code(s): R32 - Unspecified urinary incontinence Status: Acute Assessment and Plan: New onset incontinence 2-3 days prior to admission No evidence of retention on bladder scan No evidence of obstruction. Renal function is normal UA without concerns for infections at admission, repeating UA and urine cx now. Strict I/Os. Bladder training. Continent of urine now, even overnight. (4) Serum calcium elevated: Code(s): E83.52 - Hypercalcemia Status: Acute Assessment and Plan: Resolved Calcium slightly elevated up to 10.8 on presentation Review of labs demonstrates history of mildly elevated calcium levels Calcium improved with IV fluid rehydration Continue to monitor ionized calcium pending (5) Rheumatoid arthritis in remission: Code(s): M06.9 - Rheumatoid arthritis, unspecified Status: Acute Assessment and Plan: Maintained on methotrexate weekly, low-dose prednisone and leflunomide daily, and golimumab infusions q8 weeks Continue outpatient Rheumatology follow-up HOLD home prednisone and leflunomide (6) Hypothyroidism, unspecified: Qualifiers: Hypothyroidism type: acquired Qualified Code(s): E03.9 - Hypothyroidism, unspecified Code(s): E03.9 - Hypothyroidism, unspecified Status: Acute Assessment and Plan: TSH is within normal limits now that he was taking home Levothyroxine doses. back in TSH was elevated. Continue levothyroxine because on 04/04/2021 TSH was 1.46 (much improved from Feb. ) F/U with PCP for repeat TSH in 6 weeks, at appropriate time. (7) Type 2 diabetes mellitus without complication, without long-term current use of insulin: Code(s): E11.9 - Type 2 diabetes mellitus without complications Status: Acute Assessment and Plan: No longer taking medication A1c is 5.3 95 - 168
[2021-04-10 14:00] VITALS: BP 130/71; PULSE 98; RESP 16; TEMP 36.6; O2SAT 99
[2021-04-10 17:15] LABS: Hematocrit 47.3 % (42.0-52.0); Mean Corpuscular HGB Conc 33.8 g/dl (32-36); Mean Corpuscular Hemoglobin 29.3 pg (26-34); Mean Corpuscular Volume 86.5 fl (80-100); Mean Platelet Volume 10.7 fl (7.4-10.4); Platelet Count Result 285 k/mm3 (150-375); Red Blood Count 5.47 M/mm3 (4.6-6.20); Red Cell Distribution Width 17.2 % (11.5-14.5)
[2021-04-10] MEDS: MELATONIN 3 MG TABLET PO (20:00)
[2021-04-10] MEDS: FAMOTIDINE 20 MG TABLET 40 MG PO (20:00)
[2021-04-10] MEDS: SENNA/DOCUSATE SODIUM TABLET 1 TAB PO (20:01)
[2021-04-10 22:00] VITALS: BP 162/94; PULSE 100; RESP 18; TEMP 36.1; O2SAT 97
[2021-04-11] VITALS (31 sets, daily range): BP systolic 89–219; BP diastolic 46–110; PULSE 98–131; RESP 18–32; TEMP 36.2–38.5; O2SAT 96–100
[2021-04-11 06:12] LABS: Anion Gap 12 mmol/L (8-16); Blood Urea Nitrogen 15 mg/dL (9-20); Calcium 10.4 mg/dL (8.4-10.2); Carbon Dioxide 22 mmol/L (22-30); Chloride 99 mmol/L (98-107); Estimated CRCL calculation 67 ml/min; Estimated Glomerular Filt Rate > 60; Glucose 121 mg/dL (65-110); Potassium 3.5 mmol/L (3.4-5.0); Sodium 133 mmol/L (137-145)
[2021-04-11] MEDS: PANTOPRAZOLE 40 MG TABLET PO (09:17)
[2021-04-11] MEDS: DOCUSATE SODIUM 100 MG CAPSULE PO (09:17)
[2021-04-11] MEDS: ROSUVASTATIN 10 MG TABLET 20 MG PO (09:17)
[2021-04-11] MEDS: DULoxetine HCL 60 MG CAPSULE.DR PO (09:17)
[2021-04-11] MEDS: FOLIC ACID 1 MG TABLET PO (09:18)
[2021-04-11] MEDS: ENOXAPARIN 40 MG/0.4 ML SYRINGE SUB-Q (09:18)
--- NOTE | 2021-04-11 11:56 | PM.IMPN ---
Progress Note: A&P Assessment and Plan (1) Altered mental status: Qualifiers: Altered mental status type: transient alteration of awareness Qualified Code(s): R40.4 - Transient alteration of awareness Code(s): R41.82 - Altered mental status, unspecified Status: Acute Assessment and Plan: AMS ? CAUSE Head CT showed no acute intracranial abnormalities Brain MRI--no acute intracranial findings; chronic age related finding Appreciate Neurology consultation and discussion MRI of the cervical spine TSH, ammonia, B12, folate, calcium are normal. They were not normal in Feb. Urine tox screen positive for benzodiazepines and MD HAS discontinued Alprazolam and Gabapentin already EEG-->abnormalities are suggestive of underlying organic or metabolic encephalopathy or neuro degenerative process Consider LP/spinal tap and spinal fluid cultures/analysis. NEXT STEP Calcium slightly high PTH high consult nephrology for hypercalcemia order mg and calcium levels (2) Gait disturbance: Code(s): R26.9 - Unspecified abnormalities of gait and mobility Status: Acute Assessment and Plan: Patient's son reports functional ability is dependent on when his last infusion was He got his last Simponi (golimumab) infusion in 2020 per his Supervisor Inspecting Also may be worsened by peripheral neuropathy. Cervical spine MRI-->moderate cervical spondylosis -->Will need outpatient EMG and NCS with Neurology Continue PT/OT here (3) Urinary incontinence: Code(s): R32 - Unspecified urinary incontinence Status: Acute Assessment and Plan: New onset incontinence 2-3 days prior to admission No evidence of retention on bladder scan No evidence of obstruction. Renal function is normal follow ua and uc . (4) Serum calcium elevated: Code(s): E83.52 - Hypercalcemia Status: Acute Assessment and Plan: consult nephrology Calcium improved with IV fluid rehydration (5) Rheumatoid arthritis in remission: Code(s): M06.9 - Rheumatoid arthritis, unspecified Status: Acute Assessment and Plan: Maintained on methotrexate weekly, low-dose prednisone and leflunomide daily, and golimumab infusions q8 weeks Continue outpatient Rheumatology follow-up HOLD home prednisone and leflunomide (6) Hypothyroidism, unspecified: Qualifiers: Hypothyroidism type: acquired Qualified Code(s): E03.9 - Hypothyroidism, unspecified Code(s): E03.9 - Hypothyroidism, unspecified Status: Acute Assessment and Plan: TSH is within normal limits now (7) Type 2 diabetes mellitus without complication, without long-term current use of insulin: Code(s): E11.9 - Type 2 diabetes mellitus without complications Status: Acute Assessment and Plan: A1c is 5.3 No need for further monitoring (8) Elevated blood pressure reading: Code(s): R03.0 - Elevated blood-pressure reading, without diagnosis of hypertension Status: Acute Assessment and Plan: Blood pressure has been elevated, likely related to HYPERPARATHYROIDISM start bp medication (9) Sinus tachycardia: Code(s): R00.0 - Tachycardia, unspecified Status: Acute Assessment and Plan: Resolved EKG-->SINUS RHYTHM INCOMPLETE RIGHT BUNDLE BRANCH BLOCK Patient denies being on any beta-blockers Continue to monitor heart rate, HR 70-90 today Additional Plan Subjective Date/time seen: 04/11/21 11:56 Interval history: 70-year-old male with past medical history significant for rheumatoid arthritis, patient gets infusions every 8 weeks of Simponi (golimumab) patient just got his last infusion on early February, gastroesophageal reflux disease, hypothyroidism, hyperparathyroidism, chronic hyper calcemia. Pt brought in by the family because of confusion since Monday. Pt had put coffee cup and remote in the microwave. Pt talking about not emptying his
[2021-04-11 12:27] LABS: Gabapentin 4.8 mcg/mL
[2021-04-11] MEDS: SODIUM CHLORIDE 0.9% IV 1,000 ML 100 ML IV CONT ×2 (13:20→22:24)
[2021-04-11] MEDS: hydrALAZINE HCL 20 MG/ML VIAL IV PUSH (15:51)
[2021-04-11] MEDS: LORazepam INJ (*CRX) 2 MG/ML VIAL 1 MG IV PUSH (15:58)
[2021-04-11 15:59] LABS: Hematocrit 52.3 % (42.0-52.0); Hemoglobin 16.5 g/dL (14.0-18.0); Mean Corpuscular HGB Conc 31.5 g/dl (32-36); Mean Corpuscular Hemoglobin 28.9 pg (26-34); Mean Corpuscular Volume 91.8 fl (80-100); Mean Platelet Volume 10.7 fl (7.4-10.4); Platelet Count Result 304 k/mm3 (150-375); Red Cell Distribution Width 17.3 % (11.5-14.5); White Blood Count 10.4 K/mm3 (4.5-10.0)
[2021-04-11 16:02] LABS: Glucose Point of Care 172 mg/dl (65-105)
--- NOTE | 2021-04-11 16:04 | PM.EVENT ---
Event Note Event Note Event Note: RAPID RESPONSE call x [employer] pt talking on phone when suddenly became unconscious family reports that pt was talking to them and reported that he was feeling unwell at start of event no hx of seizure but pt has been having AMS and bizarre behavior for weeks prior to admission he was noted to have elevated Ca++ but labs otherwise normal GCS of 3 BP 219/105 BG 172 HR sinus tach 110s pt with jaw clamped down blood draining from corner of mouth eyes deviated up and to the R STAT head CT hydralazine 20mg IV -> repeat BP 190/87 Ativan 1mg given prior to Head CT Ativan 4mg pending findings from Head CT and Keppra if GCS does not improve will require intubation x airway protection
[2021-04-11] MEDS: ENALAPRILAT 1.25 MG/ML VIAL IV PUSH (16:20)
[2021-04-11] MEDS: levETIRAcetam 1000MG/NACL100ML 1,000 MG/100 ML BAG 400 MG IVPB (16:33)
--- NOTE | 2021-04-11 16:43 | ECG_ITS ---
Measurements Intervals [place] Rate: 127 P: 17 [place]: 133 QRS: 77 QRSD: 90 T: 33 QT: 363 QTc: 530 Interpretive Statements SINUS TACHYCARDIA INCOMPLETE RIGHT BUNDLE BRANCH BLOCK BASELINE ARTIFACT- III, V4-V6 ABNORMAL ECG Electronically Signed On 04-12-2021 14:42:00 [employer] by Aroldo Dowling D.O.
[2021-04-11] MEDS: LORazepam INJ (*CRX) 2 MG/ML VIAL IV PUSH (16:47)
[2021-04-11 16:55] LABS: Alanine Aminotransferase 35 U/L (4-50); Albumin Level 5.4 g/dL (3.5-5.1); Alkaline Phosphatase 119 U/L (38-126); Anion Gap 29 mmol/L (8-16); Aspartate Amino Transferase 43 U/L (17-59); Bilirubin,Total 0.9 mg/dL (0.2-1.3); Blood Urea Nitrogen 15 mg/dL (9-20); CRP 0.6 mg/dL (<1.0); Calcium 11.5 mg/dL (8.4-10.2); Carbon Dioxide 13 mmol/L (22-30); Chloride 99 mmol/L (98-107); Estimated CRCL calculation 56 ml/min; Estimated Glomerular Filt Rate > 60; Glucose 155 mg/dL (65-110); Magnesium 2.6 mg/dL (1.6-2.3); Potassium 3.8 mmol/L (3.4-5.0); Sodium 141 mmol/L (137-145)
[2021-04-11 17:04] LABS: Troponin I < 0.012 ng/mL (0.000-0.034)
[2021-04-11 17:09] LABS: Alveolar/Arterial O2 Gradient 47.3 mmHg; Carboxyhemoglobin 0.4 % THb (0-2.0); Fractional Inspired Oxygen 28 %; HCO3 ABG 18.2 mEq/l (22.0-26.0); Methemoglobin ABG 0.4 %THb (0-1.5); Oxygen Content ABG 21.6 %vol (16.0-22.0); Oxygen Saturation ABG 96.6 % (95.0-100.0); Oxyhemoglobin 95.5 % THb (90.0-100.0); PCO2 ABG 43.5 mmHg (35.0-45.0); PO2 FiO2 Ratio Arterial Blood 3.61 %; Reduced Hemoglobin 3.7 %THb (0-5.0); pH ABG 7.239 (7.350-7.450)
[2021-04-11 17:10] LABS: Device NASAL CANNULA; Modified Allen's Test Pass; Site Drawn RIGHT RADIAL
[2021-04-11 17:10] LABS: Basophils Absolute Auto 0.1 K/mm3 (0.0-0.1); Basophils Percent Auto 1.1 % (0.2-1.2); Eosinophils Absolute Auto 0.1 K/mm3 (0-0.3); Eosinophils Percent Auto 0.7 % (0-4.4); Hemoglobin 15.4 g/dL (14.0-18.0); Immature Granulocyte Absolute 0.05 K/mm3 (0.00-0.031); Immature Granulocyte Percent A 0.6 % (0-0.5); Lymphocytes Absolute Auto 1.84 K/mm3 (0.9-3.2); Lymphocytes Percent Auto 21.8 % (18.3-44.2); Mean Corpuscular HGB Conc 32.8 g/dl (32-36); Mean Corpuscular Hemoglobin 28.9 pg (26-34); Mean Corpuscular Volume 88.3 fl (80-100); Mean Platelet Volume 10.8 fl (7.4-10.4); Monocytes Absolute Auto 0.6 K/mm3 (0.1-0.6); Monocytes Percent Auto 7.1 % (2.6-8.5); Neutrophils Absolute Auto 5.8 K/mm3 (1.3-6.7); Neutrophils Percent Auto 68.7 % (45.5-73.1); Platelet Count Result 315 k/mm3 (150-375); Red Blood Count 5.32 M/mm3 (4.6-6.20); Red Cell Distribution Width 16.9 % (11.5-14.5); White Blood Count 8.5 K/mm3 (4.5-10.0)
[2021-04-11 17:24] LABS: Creatine Kinase 67 U/L (55-170)
[2021-04-11] MEDS: SODIUM BICARBONATE 8.4% 50 MEQ/50 ML SYRINGE IV PUSH (17:27)
[2021-04-11 17:54] LABS: Erythrocyte Sedimentation Rate 6 mm/hr (0-20)
[2021-04-11] MEDS: PROPOFOL IV EMULSION 100 ML 8.1 MG IV CONT (19:00)
--- NOTE | 2021-04-11 19:13 | WPDPROCEDUR ---
Procedures Intubation Intubation Date: 04/11/21 Intubation Time: 18:19 A pre-procedural Time-Out was completed immediately before starting the procedure and confirmed: Patient Identification, Site, Procedure, Patient Position and the Availability of Requisite Equipment: Yes Sedative: etomidate Mg given: 20 Paralytic: rocuronium Mg given: 40 Laryngoscope: fiber optic video scope ET tube size: 7.5 Tube secured depth (cm): 23 Tube placement confirmation: visualized tube passing through cords, equal breath sounds bilaterally and confirmation by capnometry Patient tolerated procedure: well Intubation complications: none
--- NOTE | 2021-04-11 19:15 | WPDPROCEDUR ---
Procedures Central Line Placement Right Femoral: Central Line Date: 04/11/21 Central Line Time: 18:47 The patient/family/POA understand(s) and acknowledge(s) the need to proceed with central venous catheter insertion as an important element of the patient's clinical management.: Yes Patient Position: supine Patient placed on monitor/pulse ox: Yes Provider Prep: Max. sterile barrier precautions Central line prep: 2% Chlorhexidine scrub and sterile full body sheet applied Local anesthesia used: lidocaine 1% Sterile US Technique with sterile gel/sterile probe covers: Yes Central line lumen inserted: triple [place]an: 7 Length (cm): 16 Depth of Insertion (cm): 16 Post Procedure: sutured in place, good blood return, all ports aspirated, flushed, capped and transparent dressing Complications: none
[2021-04-11 20:04] LABS: Alveolar/Arterial O2 Gradient 140.5 mmHg; Base Excess ABG -3.4 mEq/l (+/-2.0); Device VENTILATOR; Fractional Inspired Oxygen 50 %; HCO3 ABG 20.7 mEq/l (22.0-26.0); Modified Allen's Test Pass; Oxygen Content ABG 20.8 %vol (16.0-22.0); Oxygen Saturation ABG 99.2 % (95.0-100.0); Oxyhemoglobin 97.8 % THb (90.0-100.0); PCO2 ABG 34.8 mmHg (35.0-45.0); PO2 ABG 176.9 mmHg (80.0-100.0); PO2 FiO2 Ratio Arterial Blood 3.54 %; Site Drawn RIGHT RADIAL; Total Hemoglobin 14.9 g/dL (12.0-18.0); pH ABG 7.393 (7.350-7.450)
[2021-04-11 20:05] LABS: Arterial Blood Gas PEEP 5 cmH2O; Arterial Blood Gas Tidal Volume 450 ml; Arterial Blood Gas Vent Mode CMV; Arterial Blood Gas Ventilator rate 18 /MIN
[2021-04-11 20:08] LABS: Reflex Lactic Acid Yes or No Add Lactic
[2021-04-11 21:45] LABS: Lactic Acid 0.9 mmol/L (0.7-2.1)
[2021-04-11] MEDS: MINERAL OIL/WHITE PETROLATUM OINTMENT 1 APPLIC EACH EYE (22:21)
[2021-04-11] MEDS: ACYCLOVIR SODIUM IVPB 800 MG in DEXTROSE 5% IN WATER 250 ML 266 MG IVPB (22:23)
[2021-04-11] MEDS: metroNIDAZOLE 500 MG/ISO 100ML 500 MG/100 ML BAG 100 MG IVPB (22:23)
[2021-04-11] MEDS: cefTRIAXone 2 GM in SODIUM CHLORIDE 0.9% IV 100 ML 200 ML IVPB (22:23)
[2021-04-11] MEDS: ACETAMINOPHEN 325 MG TABLET 650 MG PO (23:43)
[2021-04-11 23:55] LABS: Glucose Point of Care 125 mg/dl (65-105)
[2021-04-12] VITALS (33 sets, daily range): BP systolic 103–163; BP diastolic 61–96; PULSE 89–131; RESP 18–25; TEMP 36.8–38.5; O2SAT 93–100
[2021-04-12] MEDS: PROPOFOL IV EMULSION 100 ML 8.1 MG IV CONT (04:45)
[2021-04-12 05:03] LABS: Basophils Absolute Auto 0.1 K/mm3 (0.0-0.1); Basophils Percent Auto 0.5 % (0.2-1.2); Eosinophils Percent Auto 0.1 % (0-4.4); Hematocrit 40.1 % (42.0-52.0); Hemoglobin 13.5 g/dL (14.0-18.0); Immature Granulocyte Absolute 0.05 K/mm3 (0.00-0.031); Immature Granulocyte Percent A 0.4 % (0-0.5); Lymphocytes Percent Auto 6.9 % (18.3-44.2); Mean Corpuscular HGB Conc 33.7 g/dl (32-36); Mean Corpuscular Hemoglobin 29.3 pg (26-34); Mean Corpuscular Volume 87.2 fl (80-100); Mean Platelet Volume 10.1 fl (7.4-10.4); Monocytes Absolute Auto 1.8 K/mm3 (0.1-0.6); Monocytes Percent Auto 13.7 % (2.6-8.5); Neutrophils Absolute Auto 10.3 K/mm3 (1.3-6.7); Neutrophils Percent Auto 78.4 % (45.5-73.1); Platelet Count Result 239 k/mm3 (150-375); Red Cell Distribution Width 16.5 % (11.5-14.5); White Blood Count 13.1 K/mm3 (4.5-10.0)
[2021-04-12] MEDS: ACYCLOVIR SODIUM IVPB 800 MG in DEXTROSE 5% IN WATER 250 ML 266 MG IVPB ×3 (05:09→20:19)
[2021-04-12] MEDS: levETIRAcetam 1000MG/NACL100ML 1,000 MG/100 ML BAG 400 MG IVPB ×2 (05:10→17:05)
[2021-04-12] MEDS: metroNIDAZOLE 500 MG/ISO 100ML 500 MG/100 ML BAG 100 MG IVPB ×3 (05:10→21:52)
[2021-04-12 05:24] LABS: Alanine Aminotransferase 25 U/L (4-50); Albumin Level 3.6 g/dL (3.5-5.1); Alkaline Phosphatase 92 U/L (38-126); Anion Gap 9 mmol/L (8-16); Aspartate Amino Transferase 29 U/L (17-59); Bilirubin,Total 0.6 mg/dL (0.2-1.3); Blood Urea Nitrogen 15 mg/dL (9-20); Calcium 9.7 mg/dL (8.4-10.2); Carbon Dioxide 24 mmol/L (22-30); Chloride 99 mmol/L (98-107); Estimated CRCL calculation 61 ml/min; Estimated Glomerular Filt Rate > 60; Glucose 112 mg/dL (65-110); Magnesium 2.2 mg/dL (1.6-2.3); Potassium 3.6 mmol/L (3.4-5.0); Sodium 132 mmol/L (137-145)
[2021-04-12 05:41] LABS: Alveolar/Arterial O2 Gradient 102.1 mmHg; Base Excess ABG -2.8 mEq/l (+/-2.0); Fractional Inspired Oxygen 40 %; HCO3 ABG 20.7 mEq/l (22.0-26.0); Oxygen Content ABG 22.9 %vol (16.0-22.0); Oxygen Saturation ABG 98.9 % (95.0-100.0); PCO2 ABG 32.8 mmHg (35.0-45.0); PO2 ABG 145.4 mmHg (80.0-100.0); PO2 FiO2 Ratio Arterial Blood 3.63 %; Total Hemoglobin 16.5 g/dL (12.0-18.0); pH ABG 7.417 (7.350-7.450)
[2021-04-12 05:45] LABS: Device VENTILATOR; Modified Allen's Test Pass; Site Drawn RIGHT RADIAL
[2021-04-12 05:46] LABS: Arterial Blood Gas PEEP 5 cmH2O; Arterial Blood Gas Tidal Volume 450 ml; Arterial Blood Gas Vent Mode CMV; Arterial Blood Gas Ventilator rate 18 /MIN
[2021-04-12] MEDS: LEVOTHYROXINE SODIUM 100 MCG TABLET PO (05:48)
--- NOTE | 2021-04-12 07:16 | PCOTNOTE ---
Patient had a change in medical status and is no longer appropriate for Occupational therapy at this time. If patient condition improves can re-order when medically appropriate.
--- NOTE | 2021-04-12 07:17 | PM.CNNEP ---
Assessment and Plan Assessment and plan (1) Hypercalcemia: Code(s): E83.52 - Hypercalcemia Status: Acute Assessment and Plan: The patient has intermittent hypercalcemia for the last 6 months or so. His calcium was normal in July and also in 2015 and before that. We have no labs in between. He has had a PTH level which is high. This is consistent with primary hyperparathyroidism. We can also check for other causes such as vitamin a excess or sarcoidosis. The patient has had a recent normal chest x-ray so I doubt if he has sarcoidosis. Although there are some studies about cases of sarcoidosis type lesions in patients on simponi but I think this is unlikely in the those with a normal chest x-ray. I do not think that his calcium level is symptomatic. Even when his calcium was slightly high is ionized calcium was normal. Also the patient had high calcium levels earlier this year when not sick and he was not confused with those. If the patient with hyperparathyroidism is put to bed on bed rest then his bone turnover can increase and his calcium level might go up because of that. So it might be that his illness has made his calcium worse instead of the opposite. At this point, especially since his calcium is normal today, we do not need to do anything. If his calcium becomes a problem we can give him some pamidronate or possibly cinacalcet. Will check a vitamin-D and a angiotensin converting enzyme level. (2) Seizure: Code(s): R56.9 - Unspecified convulsions Status: Acute (3) Encephalopathy: Code(s): G93.40 - Encephalopathy, unspecified Status: Acute Assessment and Plan: Now sedated on the ventilator (4) Elevated blood pressure reading: Code(s): R03.0 - Elevated blood-pressure reading, without diagnosis of hypertension Status: Acute Assessment and Plan: blood pressures have been high here. Possibly due to his illness. He had hyperparathyroidism for the last 6 months and his blood pressures were good before he came in the hospital so Although there may be some contribution, I do not think the high blood pressure is primarily because of the hyperparathyroidism. (5) Pure hypercholesterolemia: Code(s): E78.00 - Pure hypercholesterolemia, unspecified Status: Acute Assessment and Plan: he takes Crestor for this (6) Rheumatoid arthritis, unspecified: Qualifiers: Rheumatoid arthritis location: multiple sites Rheumatoid factor presence: with rheumatoid factor Qualified Code(s): M05.79 - Rheumatoid arthritis with rheumatoid factor of multiple sites without organ or systems involvement Code(s): M06.9 - Rheumatoid arthritis, unspecified Status: Acute Assessment and Plan: this is being treated History of Present Illness Reason for Consult Consult date: 04/12/21 Chief Complaint Chief complaint: Hypercalcemia,Transient Altered Mental Status History of Present Illness Narrative: To room is an unfortunate 70-year-old gentleman who has rheumatoid arthritis, hypertension, generalized anxiety disorder, GERD, hyper calcemia, hypothyroidism, sleep apnea, diabetes and vitamin-D deficiency. The patient was admitted on the with altered mental status. He also had problems with word finding. Put is remote in the microwave. His son brought him to the emergency room. Head CT was negative. Brain MRI was unremarkable. Neurology was consulted who felt this might be cervical myopathy or neuropathy. The patient is getting multiple urine and blood tests to explain his confusion. The patient is found to have a high calcium. PTH was checked and was elevated at 88. PTHrP is normal. looking back in the records, his calcium has been intermittently high since July. He had 1 in March was upper limits of normal. He had some in 2014 and 2015 which were in the 9s. Interestingly when his calcium was high at 10.8 his i
[2021-04-12] MEDS: ENOXAPARIN 40 MG/0.4 ML SYRINGE SUB-Q (07:50)
[2021-04-12] MEDS: FAMOTIDINE 20 MG TABLET 40 MG PO (07:50)
[2021-04-12] MEDS: amLODIPine BESYLATE 5 MG TABLET 10 MG PO (07:51)
[2021-04-12] MEDS: ROSUVASTATIN 10 MG TABLET 20 MG PO (07:51)
[2021-04-12] MEDS: FOLIC ACID 1 MG TABLET PO (07:51)
[2021-04-12] MEDS: PANTOPRAZOLE 40 MG TABLET PO (07:52)
[2021-04-12] MEDS: MINERAL OIL/WHITE PETROLATUM OINTMENT 1 APPLIC EACH EYE ×2 (07:52→20:21)
[2021-04-12 08:02] LABS: Alanine Aminotransferase 23 U/L (4-50); Albumin Level 3.5 g/dL (3.5-5.1); Alkaline Phosphatase 87 U/L (38-126); Anion Gap 8 mmol/L (8-16); Aspartate Amino Transferase 25 U/L (17-59); Bilirubin,Total 0.6 mg/dL (0.2-1.3); Blood Urea Nitrogen 14 mg/dL (9-20); Calcium 9.5 mg/dL (8.4-10.2); Carbon Dioxide 25 mmol/L (22-30); Chloride 99 mmol/L (98-107); Estimated CRCL calculation 62 ml/min; Estimated Glomerular Filt Rate > 60; Glucose 129 mg/dL (65-110); Magnesium 2.2 mg/dL (1.6-2.3); Potassium 3.4 mmol/L (3.4-5.0); Sodium 132 mmol/L (137-145)
--- NOTE | 2021-04-12 08:25 | PCPTNOTE ---
Patient with a decline in status, will D/C PT orders at this time, please re-order when appropriate.
[2021-04-12] MEDS: POTASSIUM CHLORIDE 20 MEQ PACKET (FOR LIQUID) 40 MEQ FEED TUBE (09:20)
[2021-04-12] MEDS: SODIUM CHLORIDE 0.9% IV 1,000 ML 100 ML IV CONT (09:20)
[2021-04-12 09:39] LABS: INR 1.2; Prothrombin Time 14.9 Seconds (11.1-14.7)
[2021-04-12 09:40] LABS: Partial Thromboplastin Time 36.5 SECONDS (22.3-36.8)
[2021-04-12 12:13] LABS: Glucose Point of Care 95 mg/dl (65-105)
[2021-04-12] MEDS: PROPOFOL IV EMULSION 100 ML 10.8 MG IV CONT ×2 (12:23→20:25)
--- NOTE | 2021-04-12 12:52 | WPDCNINT ---
Assessment and Plan Assessment and plan (1) Acute respiratory failure: Code(s): J96.00 - Acute respiratory failure, unspecified whether with hypoxia or hypercapnia Status: Acute Assessment and Plan: Acute Respiratory failure secondary to seizures and inability to protect airway Continue full mechanical ventilation support to prevent hypoxemia/hypercarbia and end organ damage. ABG and PCXR reviewed once patient is back from LP I will perform sedation holiday and assess patient for a weaning trial. He is on Rocephin and Flagyl to cover for aspiration pneumonia CT chest is pending (2) Seizure: Code(s): R56.9 - Unspecified convulsions Status: Acute Assessment and Plan: Patient had witnessed seizure yesterday. Recent MRI which was negative Neurology is following Currently he is on propofol for sedation Continue Keppra He had EEG 04/07 Abnormal record due to the presence of bihemispheric theta and delta activity without any paroxysmal discharge. These abnormalities are suggestive of underlying organic or metabolic encephalopathy or neuro degenerative process clinical correlation recommended. I will repeat EEG preferably once he is off of propofol (3) Hypercalcemia: Code(s): E83.52 - Hypercalcemia Status: Acute Assessment and Plan: nephrology has been consulted and workup has been ordered for hyperparathyroidism and sarcoidosis continue IV fluids check CT chest as patient has history of smoking to any evaluate for any underlying malignancy (4) Urinary incontinence: Code(s): R32 - Unspecified urinary incontinence Status: Acute Assessment and Plan: currently has a Acosta (5) Peripheral neuropathy: Code(s): G62.9 - Polyneuropathy, unspecified Status: Acute (6) Type 2 diabetes mellitus without complication, without long-term current use of insulin: Code(s): E11.9 - Type 2 diabetes mellitus without complications Status: Acute Assessment and Plan: sliding scale insulin (7) Encephalopathy: Code(s): G93.40 - Encephalopathy, unspecified Status: Acute Assessment and Plan: etiology of his presenting symptoms is not fully clear this time upon review of his chart, his symptoms suggest of NPH but his MRI does not show any ventricular dilation. TSH ammonia B12 folate or normal calcium levels elevated but not high enough to explain all the symptoms EEG was abnormal but not diagnostic neurology is following Yesterday patient had a seizure but again not sure what the precipitating factor was. Patient was started on empiric antibiotics for meningitis and acyclovir to cover for HSV encephalitis last although the diagnosis appears to be unlikely as patient was awake and Since now patient is intubated and sedated that makes neuro exam very difficult. At this time patient has gone to radiology for LP and will see what the studies show At this point I will try to extubate patient first and defer definitive workup and treatment for his neurological issues to neurology wig sales consultant I will plan to repeat EEG once he is extubated Additional Plan DVT prophylaxis - subcu Lovenox to be started after LP Stress ulcer prophylaxis - PPI Nutrition - start Tube Feeds if unable to extubate Code Status - Full Code I spoke to patient's son Syed by phone. I updated him with patient's current status including the fact that he is on ventilator and sedated, plan for LP, CT scan and current treatment plan. I answered all his questions. Total Critical Care Time - 40 minutes Due to a high probability of clinically significant, life threatening deterioration, the patient required my highest level of preparedness to intervene emergently and I personally spent this critical care time directly and personally managing the patient. This critical care time included obtaining a history; examining the patient; pulse oximetry; ordering and re
[2021-04-12 15:29] LABS: Alveolar/Arterial O2 Gradient 82.3 mmHg; Base Excess ABG -0.9 mEq/l (+/-2.0); Fractional Inspired Oxygen 35 %; HCO3 ABG 24.8 mEq/l (22.0-26.0); Oxygen Content ABG 20.2 %vol (16.0-22.0); Oxyhemoglobin 97.2 % THb (90.0-100.0); PCO2 ABG 44.8 mmHg (35.0-45.0); PO2 ABG 115.2 mmHg (80.0-100.0); PO2 FiO2 Ratio Arterial Blood 3.29 %; Total Hemoglobin 14.7 g/dL (12.0-18.0); pH ABG 7.361 (7.350-7.450)
[2021-04-12 15:30] LABS: Device VENTILATOR; Modified Allen's Test Pass; Site Drawn LEFT RADIAL
[2021-04-12 15:31] LABS: Arterial Blood Gas PEEP 5 cmH2O; Arterial Blood Gas Pressure Support 5 cmH2O; Arterial Blood Gas Vent Mode SPONTANEOUS
[2021-04-12 16:02] LABS: Glucose CSF 67 mg/dL (40-70); Total Protein CSF 80 mg/dL (12-60)
[2021-04-12 17:30] LABS: Glucose Point of Care 101 mg/dl (65-105)
[2021-04-12 19:06] LABS: CSF source CSF
[2021-04-12 19:07] LABS: Appearance CSF Clear (Clear); Color CSF Colorless (Colorless); Lymphocytes CSF 76 % (40-80); Monocytes CSF 2 % (15-45); Neutrophils CSF 22 % (0-6); Nucleated Cell CSF 90 /uL (0-5); Red Blood Cell CSF 0 (0-2)
[2021-04-12] MEDS: cefTRIAXone 2 GM in SODIUM CHLORIDE 0.9% IV 100 ML 200 ML IVPB (20:19)
[2021-04-12] MEDS: SENNA/DOCUSATE SODIUM TABLET 1 TAB PO (20:21)
[2021-04-13] VITALS (28 sets, daily range): BP systolic 119–182; BP diastolic 83–109; PULSE 76–111; RESP 16–36; TEMP 36.9–38.4; O2SAT 95–100; BMI 29.9
[2021-04-13] MEDS: METOPROLOL TARTRATE INJ 5 MG/5 ML VIAL IV PUSH ×5 (01:33→23:24)
[2021-04-13] MEDS: SODIUM CHLORIDE 0.9% IV 1,000 ML 100 ML IV CONT ×3 (01:34→23:24)
[2021-04-13 04:29] LABS: Alveolar/Arterial O2 Gradient 57.1 mmHg; Base Excess ABG -0.4 mEq/l (+/-2.0); Carboxyhemoglobin 0.3 % THb (0-2.0); Fractional Inspired Oxygen 28 %; HCO3 ABG 23.8 mEq/l (22.0-26.0); Methemoglobin ABG 0.2 %THb (0-1.5); Oxygen Saturation ABG 97.6 % (95.0-100.0); Oxyhemoglobin 96.7 % THb (90.0-100.0); PCO2 ABG 37.6 mmHg (35.0-45.0); PO2 ABG 98.2 mmHg (80.0-100.0); PO2 FiO2 Ratio Arterial Blood 3.51 %; Reduced Hemoglobin 2.8 %THb (0-5.0); Total Hemoglobin 13.9 g/dL (12.0-18.0); pH ABG 7.419 (7.350-7.450)
[2021-04-13] MEDS: ACYCLOVIR SODIUM IVPB 800 MG in DEXTROSE 5% IN WATER 250 ML 266 MG IVPB ×3 (05:00→20:31)
[2021-04-13] MEDS: metroNIDAZOLE 500 MG/ISO 100ML 500 MG/100 ML BAG 100 MG IVPB ×3 (05:02→21:02)
[2021-04-13] MEDS: levETIRAcetam 1000MG/NACL100ML 1,000 MG/100 ML BAG 400 MG IVPB ×2 (05:03→17:21)
[2021-04-13 05:04] LABS: Basophils Absolute Auto 0.1 K/mm3 (0.0-0.1); Basophils Percent Auto 0.7 % (0.2-1.2); Eosinophils Percent Auto 0.4 % (0-4.4); Hematocrit 38.1 % (42.0-52.0); Hemoglobin 12.7 g/dL (14.0-18.0); Immature Granulocyte Absolute 0.05 K/mm3 (0.00-0.031); Immature Granulocyte Percent A 0.5 % (0-0.5); Lymphocytes Absolute Auto 0.78 K/mm3 (0.9-3.2); Mean Corpuscular HGB Conc 33.3 g/dl (32-36); Mean Corpuscular Hemoglobin 29.1 pg (26-34); Mean Corpuscular Volume 87.2 fl (80-100); Monocytes Absolute Auto 1.7 K/mm3 (0.1-0.6); Monocytes Percent Auto 17.2 % (2.6-8.5); Neutrophils Absolute Auto 7.2 K/mm3 (1.3-6.7); Neutrophils Percent Auto 73.2 % (45.5-73.1); Platelet Count Result 221 k/mm3 (150-375); Red Blood Count 4.37 M/mm3 (4.6-6.20); Red Cell Distribution Width 16.3 % (11.5-14.5); White Blood Count 9.8 K/mm3 (4.5-10.0)
[2021-04-13] MEDS: PROPOFOL IV EMULSION 100 ML 10.8 MG IV CONT (05:07)
[2021-04-13 05:17] LABS: Alanine Aminotransferase 21 U/L (4-50); Albumin Level 3.4 g/dL (3.5-5.1); Alkaline Phosphatase 83 U/L (38-126); Anion Gap 4 mmol/L (8-16); Aspartate Amino Transferase 27 U/L (17-59); Bilirubin,Total 0.6 mg/dL (0.2-1.3); Blood Urea Nitrogen 11 mg/dL (9-20); Calcium 9.7 mg/dL (8.4-10.2); Carbon Dioxide 26 mmol/L (22-30); Chloride 101 mmol/L (98-107); Estimated CRCL calculation 75 ml/min; Estimated Glomerular Filt Rate > 60; Glucose 94 mg/dL (65-110); Phosphorus 2.7 mg/dL (2.5-4.5); Potassium 3.5 mmol/L (3.4-5.0); Sodium 131 mmol/L (137-145)
[2021-04-13] MEDS: ACETAMINOPHEN 325 MG TABLET 650 MG PO (05:17)
[2021-04-13] MEDS: LEVOTHYROXINE SODIUM 100 MCG TABLET PO (05:18)
[2021-04-13 07:17] LABS: Device VENTILATOR; Modified Allen's Test Unable to perform; Site Drawn RIGHT RADIAL
[2021-04-13 07:18] LABS: Arterial Blood Gas PEEP 5 cmH2O; Arterial Blood Gas Vent Mode CMV; Arterial Blood Gas Ventilator rate 18 /MIN
[2021-04-13 07:19] LABS: Arterial Blood Gas Tidal Volume 450 ml
[2021-04-13] MEDS: ROSUVASTATIN 10 MG TABLET 20 MG PO (08:41)
[2021-04-13] MEDS: FOLIC ACID 1 MG TABLET PO (08:41)
[2021-04-13] MEDS: PANTOPRAZOLE SODIUM IV 40 MG VIAL IV PUSH (08:41)
[2021-04-13] MEDS: MINERAL OIL/WHITE PETROLATUM OINTMENT 1 APPLIC EACH EYE ×2 (08:41→20:31)
[2021-04-13] MEDS: POTASSIUM CHLORIDE 20 MEQ PACKET (FOR LIQUID) 40 MEQ FEED TUBE (08:49)
[2021-04-13 09:47] LABS: Alveolar/Arterial O2 Gradient 45.4 mmHg; Base Excess ABG -1.5 mEq/l (+/-2.0); Device VENTILATOR; Fractional Inspired Oxygen 28 %; HCO3 ABG 24.3 mEq/l (22.0-26.0); Modified Allen's Test Pass; Oxygen Content ABG 19.8 %vol (16.0-22.0); Oxygen Saturation ABG 97.3 % (95.0-100.0); Oxyhemoglobin 96.5 % THb (90.0-100.0); PO2 ABG 101.1 mmHg (80.0-100.0); PO2 FiO2 Ratio Arterial Blood 3.61 %; Site Drawn RIGHT RADIAL; Total Hemoglobin 14.5 g/dL (12.0-18.0)
[2021-04-13 09:48] LABS: Arterial Blood Gas PEEP 5 cmH2O; Arterial Blood Gas Pressure Support 5 cmH2O; Arterial Blood Gas Vent Mode SPONTANEOUS
[2021-04-13 10:11] LABS: HIV 1/2 Ab P24 Ag Result Negative (Negative)
[2021-04-13] MEDS: DOCUSATE SODIUM LIQ 100 MG/10 ML UDC PO (11:47)
--- NOTE | 2021-04-13 13:27 | WPDNEUROPN ---
Progress Note: A&P Additional Plan plan is to continue the antiviral treatment, repeat the EEG, and continue the anticonvulsants medication as Subjective Date/time seen: 04/13/21 13:[age] years old admitted to the hospital for the complaints of change in the mental status in addition to the ongoing history of 1. Rheumatoid arthritis 2. Hypothyroidism 3. GERD 4. Hyperparathyroidism 5. Chronic hypercalcemia and 6. History of getting infusion every 8 weeks for Simponi. Initially was noted to have word-finding difficulties with rambling conversation. And as mentioned in the initial history and physical examination he put the TV remote in the microwave and his general behavior at that time was somewhat altered. Although his initial neurological examination otherwise was nonfocal, his EEG was abnormal because of the bihemispheric slow activity without any evidence of paroxysmal discharge. Subsequent evaluation revealed him to have the routine blood studies which were without leukocytosis and low hemoglobin subsequent workup included normal MRI of the brain MRI of cervical spine with moderate cervical repeat CT scan on 04 11- his spinal fluid pressure of 220 cultures up until now negative CSF total cells 90 with 22 neutrophils to outside total protein 80, treated with a triple antibiotic and antiviral, and now in the process of being extubated, repeat EEG will be done in addition antiviral treatment will be continued as such and also I talked to the family gave them complete up today they were manifesting the desire to transfer to the see if necessary but beds are not available there and that information has also been provided to them in the meantime he has been extubated Exam Narrative: on examination this morning his minimally arousable does not follow the verbal commands pupils reacting to light extraocular movements spontaneously full only in the horizontal gaze he moves upper and lower extremities on deep sternal rub and plantar responses a question Objective Data Vital Signs Vital Signs: Vital Signs - 24 hr 04/12/21 13:50 04/12/21 14:00 04/12/21 14:08 Temperature Pulse Rate 111 H 102 H 100 Respiratory Rate 18 19 18 Blood Pressure 110/87 136/94 H Pulse Oximetry 100 100 04/12/21 14:45 04/12/21 15:16 04/12/21 15:32 Temperature Pulse Rate 122 H 122 H 131 H Respiratory Rate 18 25 H Blood Pressure Pulse Oximetry 100 100 04/12/21 16:00 04/12/21 17:00 04/12/21 18:00 Temperature 37.4 C Pulse Rate 105 H 105 H 98 Respiratory Rate 18 18 Blood Pressure 152/95 H 148/94 H Pulse Oximetry 100 100 100 04/12/21 20:00 04/12/21 20:15 04/12/21 20:25 Temperature 37.6 C Pulse Rate 102 H 105 H 106 H Respiratory Rate 18 20 Blood Pressure 163/96 H Pulse Oximetry 97 100 04/12/21 21:25 04/12/21 22:00 04/12/21 23:29 Temperature 37.6 C Pulse Rate 105 H 104 H 107 H Respiratory Rate 20 Blood Pressure 148/96 H Pulse Oximetry 100 97 97 04/13/21 00:00 04/13/21 01:33 04/13/21 02:00 Temperature 37.6 C H Pulse Rate 102 H 108 H 93 Respiratory Rate 18 20 Blood Pressure 181/109 H 135/95 H Pulse Oximetry 97 99 04/13/21 02:20 04/13/21 04:00 04/13/21 04:26 Temperature 38.3 C H Pulse Rate 93 102 H 91 Respiratory Rate 18 Blood Pressure 157/94 H Pulse Oximetry 99 97 100 04/13/21 05:02 04/13/21 05:07 04/13/21 05:17 Temperature 38.3 C H Pulse Rate 109 H 100 Respiratory Rate 18 Blood Pressure Pulse Oximetry 04/13/21 06:00 04/13/21 07:00 04/13/21 08:00 Temperature 37.1 C 37.0 C 37.0 C Pulse Rate 94 76 Respiratory Rate 18 16 Blood Pressure 119/83 147/83 H Pulse Oximetry 97 99 04/13/21 08:01 04/13/21 10:29 04/13/21 11:48 Temperature Pulse Rate 79 94 95 Respiratory Rate Blood Pressure Pulse Oximetry 100 95 04/13/21 12:08 Temperature Pulse Rate 86 Respiratory Rate 25 H Blood Pressure Pulse Oximetry 99 Intake/Output Intake/Output: Intake &
--- NOTE | 2021-04-13 13:34 | WPDINTPN ---
Progress Note: A&P Assessment and Plan (1) Acute respiratory failure: Code(s): J96.00 - Acute respiratory failure, unspecified whether with hypoxia or hypercapnia Status: Acute Assessment and Plan: Acute Respiratory failure secondary to seizures and inability to protect airway 5/5 PSV SBT done for more than 1 hour. RSBI, ABGI and Vitals acceptable. Pt awake, has cough and gag reflex. He has not following commands but will be able to protect his airway. Patient was extubated and will continue to monitor closely. NPO for now. Bipap PRN ABG and PCXR reviewed He is on Rocephin and Flagyl to cover for aspiration pneumonia which will be continued CT chest showed emphysema and mostly atelectasis (2) Seizure: Code(s): R56.9 - Unspecified convulsions Status: Acute Assessment and Plan: Patient had witnessed seizure yesterday. Recent MRI which was negative Neurology is following Of propofol now Continue Keppra He had EEG 04/07 Abnormal record due to the presence of bihemispheric theta and delta activity without any paroxysmal discharge. These abnormalities are suggestive of underlying organic or metabolic encephalopathy or neuro degenerative process clinical correlation recommended. Will reorder EEG for tomorrow (3) Encephalopathy: Code(s): G93.40 - Encephalopathy, unspecified Status: Acute Assessment and Plan: etiology of his presenting symptoms is not fully clear at this time upon review of his chart, his symptoms suggest of NPH but his MRI does not show any ventricular dilation. TSH ammonia B12 folate or normal calcium levels were elevated but not high enough to explain all the symptoms EEG was abnormal but not diagnostic Patient now extubated but continues to be drowsy and does not follow commands although he is able to protect his airway and is moving spontaneously all 4 extremities and maintaining stable vital signs Neurology is following 04/12 LP was done which had opening pressure of 22, 90 WBCs with 76% lymphocyte, normal glucose level, and slightly elevated protein at 80. Her Gram stain is negative These findings will suggest viral meningitis/encephalitis, some neuro disease like neurosyphilis, encephalitis Patient was started on empiric antibiotics for meningitis and acyclovir to cover for HSV encephalitis I will discontinue antibacterials except the coverage for pneumonia but continue acyclovir until HSV results are back. Other testing like cryptococcal antigen, Lyme, EBV West Nile are pending I have also ordered RPR, FTA-ABS to evaluate for neurosyphilis and HIV I have ordered a repeat EEG for tomorrow (4) Hypercalcemia: Code(s): E83.52 - Hypercalcemia Status: Acute Assessment and Plan: nephrology has been consulted and workup has been ordered for hyperparathyroidism and sarcoidosis continue IV fluids but decrease rate Level is improved CT chest abdomen pelvis has above-mentioned (5) Urinary incontinence: Code(s): R32 - Unspecified urinary incontinence Status: Acute Assessment and Plan: currently has a Ac[place] (6) Peripheral neuropathy: Code(s): G62.9 - Polyneuropathy, unspecified Status: Acute (7) Type 2 diabetes mellitus without complication, without long-term current use of insulin: Code(s): E11.9 - Type 2 diabetes mellitus without complications Status: Acute Assessment and Plan: sliding scale insulin (8) Renal mass, left: Code(s): N28.89 - Other specified disorders of kidney and ureter Status: Acute Assessment and Plan: CT abdomen pelvis showed - Indeterminate 3.2 cm exophytic left renal lesion suspicious for renal cell carcinoma. Recommend further evaluation with nonemergent pre and postcontrast CT or MRI when clinically appropriate. MRI abdomen ordered. Will also discuss with nephrology Additional Plan DVT prophylaxis - subcu Lovenox to be started after LP Stress ulc
--- NOTE | 2021-04-13 19:54 | PC.NURSE ---
1939 Dr. James informed of fever. orders received.
[2021-04-13] MEDS: cefTRIAXone 2 GM in SODIUM CHLORIDE 0.9% IV 100 ML 200 ML IVPB (20:29)
[2021-04-14] VITALS (14 sets, daily range): BP systolic 155–175; BP diastolic 89–99; PULSE 73–115; RESP 12–22; TEMP 36.5–37.2; O2SAT 94–99
[2021-04-14 04:22] LABS: Alveolar/Arterial O2 Gradient 80.6 mmHg; Base Excess ABG -0.3 mEq/l (+/-2.0); Carboxyhemoglobin 0.1 % THb (0-2.0); Fractional Inspired Oxygen 28 %; HCO3 ABG 23.5 mEq/l (22.0-26.0); Methemoglobin ABG 0.3 %THb (0-1.5); Oxygen Saturation ABG 95.7 % (95.0-100.0); Oxyhemoglobin 94.9 % THb (90.0-100.0); PCO2 ABG 36.1 mmHg (35.0-45.0); PO2 ABG 76.4 mmHg (80.0-100.0); PO2 FiO2 Ratio Arterial Blood 2.73 %; Reduced Hemoglobin 4.7 %THb (0-5.0); Total Hemoglobin 13.5 g/dL (12.0-18.0); pH ABG 7.432 (7.350-7.450)
[2021-04-14 04:23] LABS: Device NASAL CANNULA; Modified Allen's Test Pass; Site Drawn RIGHT RADIAL
[2021-04-14] MEDS: ACYCLOVIR SODIUM IVPB 800 MG in DEXTROSE 5% IN WATER 250 ML 266 MG IVPB ×3 (04:45→20:14)
[2021-04-14 05:18] LABS: Basophils Absolute Auto 0.1 K/mm3 (0.0-0.1); Basophils Percent Auto 0.8 % (0.2-1.2); Eosinophils Absolute Auto 0.1 K/mm3 (0-0.3); Hematocrit 37.1 % (42.0-52.0); Hemoglobin 12.5 g/dL (14.0-18.0); Immature Granulocyte Absolute 0.04 K/mm3 (0.00-0.031); Immature Granulocyte Percent A 0.5 % (0-0.5); Lymphocytes Absolute Auto 0.88 K/mm3 (0.9-3.2); Lymphocytes Percent Auto 11.2 % (18.3-44.2); Mean Corpuscular HGB Conc 33.7 g/dl (32-36); Mean Corpuscular Hemoglobin 28.8 pg (26-34); Mean Corpuscular Volume 85.5 fl (80-100); Mean Platelet Volume 10.7 fl (7.4-10.4); Monocytes Absolute Auto 1.4 K/mm3 (0.1-0.6); Monocytes Percent Auto 18.1 % (2.6-8.5); Neutrophils Absolute Auto 5.4 K/mm3 (1.3-6.7); Neutrophils Percent Auto 68.4 % (45.5-73.1); Platelet Count Result 248 k/mm3 (150-375); Red Blood Count 4.34 M/mm3 (4.6-6.20); Red Cell Distribution Width 15.8 % (11.5-14.5); White Blood Count 7.9 K/mm3 (4.5-10.0)
[2021-04-14] MEDS: metroNIDAZOLE 500 MG/ISO 100ML 500 MG/100 ML BAG 100 MG IVPB ×3 (05:38→22:02)
[2021-04-14] MEDS: levETIRAcetam 1000MG/NACL100ML 1,000 MG/100 ML BAG 400 MG IVPB ×2 (05:39→17:52)
[2021-04-14] MEDS: METOPROLOL TARTRATE INJ 5 MG/5 ML VIAL IV PUSH ×3 (05:40→17:51)
[2021-04-14 05:44] LABS: Alanine Aminotransferase 17 U/L (4-50); Albumin Level 3.3 g/dL (3.5-5.1); Alkaline Phosphatase 80 U/L (38-126); Anion Gap 7 mmol/L (8-16); Aspartate Amino Transferase 25 U/L (17-59); Bilirubin,Total 0.5 mg/dL (0.2-1.3); Blood Urea Nitrogen 8 mg/dL (9-20); Calcium 9.4 mg/dL (8.4-10.2); Carbon Dioxide 25 mmol/L (22-30); Chloride 101 mmol/L (98-107); Estimated CRCL calculation 85 ml/min; Estimated Glomerular Filt Rate > 60; Glucose 90 mg/dL (65-110); Magnesium 1.8 mg/dL (1.6-2.3); Potassium 3.2 mmol/L (3.4-5.0); Sodium 133 mmol/L (137-145)
[2021-04-14] MEDS: PANTOPRAZOLE SODIUM IV 40 MG VIAL IV PUSH (08:50)
[2021-04-14] MEDS: KCL 40 MEQ/WATER 100 ML 100 ML 25 ML IVPB (09:04)
--- NOTE | 2021-04-14 09:11 | WPDNEUROLOGY ---
Neurology EEG Report General Information Date of Study: 04/14/21 TEST eeg DIAGNOSIS Seizures CONDITION OF RECORDING lethargic and sleepy with constant movements and eye movements throughout the tracing EEG NUMBER [id number] CLINICAL HISTORY patient came in to hospital last week for acute confusion with changes in the mental status ,had a cardiopulmonary arrest, intubated, for couple of days now of ventilator and f sedation,but remains lethargic and confused with constant eye movements throughout the tracing. EEG DESCRIPTION background rhythm consists of moderate amount of poorly organized low voltage beta activity seen admixed with low to medium voltage 5 to 7 hertz per 2nd theta and intermittent 3 to 4 hertz per 2nd delta activity over the left hemispheric linkages and asymmetrical beta and delta activity over the right hemispheric linkages in addition to the low voltage activity for every 2 to 3 seconds .hyperventilation not done .photic stimulation not done. Paroxysmal. Focal. Lateralizing. IMPRESSION Abnormal record due to the presence of asymmetrical theta and delta activity with more prominence on the right hemispheric linkages in addition to the 1 to 2 seconds pauses with low-voltage activity intermittently.These findingare suggestive of organic and metabolic encephalopathy with focal structural lesion and possibility of the seizure .clinical correlation recommended. Compared to the previous tracing this EEG reveals worsening of the background rhythm and focal activity.
[2021-04-14 09:53] LABS: Rapid Plasma Reagin Non-Reactive (NonReactive)
--- NOTE | 2021-04-14 11:17 | WPDINTPN ---
Progress Note: A&P Assessment and Plan (1) Acute respiratory failure: Code(s): J96.00 - Acute respiratory failure, unspecified whether with hypoxia or hypercapnia Status: Acute Assessment and Plan: Acute Respiratory failure secondary to seizures and inability to protect airway Patient was extubated after a weaning trial yesterday and has been maintaining his saturation on nasal cannula He is on Rocephin and Flagyl to cover for aspiration pneumonia which will be continued CT chest showed emphysema and mostly atelectasis (2) Seizure: Code(s): R56.9 - Unspecified convulsions Status: Acute Assessment and Plan: Patient had witnessed seizure prior to admission to ICU. Recent MRI which was negative Neurology is following off propofol now Continue Keppra and seizure precautions He had EEG 04/07 Abnormal record due to the presence of bihemispheric theta and delta activity without any paroxysmal discharge. These abnormalities are suggestive of underlying organic or metabolic encephalopathy or neuro degenerative process clinical correlation recommended. He had another EEG done this morning report of which is pending (3) Encephalopathy: Code(s): G93.40 - Encephalopathy, unspecified Status: Acute Assessment and Plan: etiology of his presenting symptoms is not fully clear at this time upon review of his chart, his symptoms suggest of NPH but his MRI does not show any ventricular dilation. TSH ammonia B12 folate ammonia normal calcium levels were elevated but not high enough to explain all the symptoms EEG was abnormal but not diagnostic repeat EEG was done today and report is pending Patient now extubated but continues to be drowsy although improving Neurology is following 04/12 LP was done which had opening pressure of 22, 90 WBCs with 76% lymphocyte, normal glucose level, and slightly elevated protein at 80. Her Gram stain is negative These findings will suggest viral meningitis/encephalitis, some neuro disease like neurosyphilis, encephalitis Patient was started on empiric antibiotics for meningitis and acyclovir to cover for HSV encephalitis After LP results, antibacterials except the coverage for pneumonia was discontinued but acyclovir is continued until HSV results are back. Other testing like cryptococcal antigen, Lyme, EBV West Nile are pending I have also ordered RPR which is negative, FTA-ABS (pending) to evaluate for neurosyphilis HIV is negative (4) Hypercalcemia: Code(s): E83.52 - Hypercalcemia Status: Acute Assessment and Plan: nephrology has been consulted and workup including Alfredo level and vitamin-D level has been ordered for hyperparathyroidism and sarcoidosis continue IV fluids but decrease rate Level is improved CT chest abdomen pelvis has above-mentioned (5) Urinary incontinence: Code(s): R32 - Unspecified urinary incontinence Status: Acute Assessment and Plan: currently has a Acosta (6) Type 2 diabetes mellitus without complication, without long-term current use of insulin: Code(s): E11.9 - Type 2 diabetes mellitus without complications Status: Acute Assessment and Plan: sliding scale insulin (7) Renal mass, left: Code(s): N28.89 - Other specified disorders of kidney and ureter Status: Acute Assessment and Plan: CT abdomen pelvis showed - Indeterminate 3.2 cm exophytic left renal lesion suspicious for renal cell carcinoma. Recommend further evaluation with nonemergent pre and postcontrast CT or MRI when clinically appropriate. MRI abdomen ordered and is pending Will also discuss with nephrology (8) Hypokalemia: Code(s): E87.6 - Hypokalemia Status: Acute Assessment and Plan: Replacement of potassium as ordered Additional Plan DVT prophylaxis - subcu Lovenox to be started after LP Stress ulcer prophylaxis - PPI Nutrition -will request Radiology for [facility]
--- NOTE | 2021-04-14 12:01 | PCFNICU ---
ICU Rounding Note: Pt current nutrition is NPO. Last recorded weight is 90.2 kg-stable Bowel Motility:+BM reported 04/09-Colace has been added. Labs Reviewed:K 3.2,Na 133, Hct 37.1,Hgb 12.5, Alb 3.3 Meds Noted:Keppra, Flagyl, KCL Skin: WNL Additional Notes: Patient remains NPO after extubation on 04/13. Spoke with MD today, plans for [place]. Patient not taking meds or eating. No plans for tube feedings today. Will continue to monitor. Monitor labs, medications, weight and oral intake every 3 days and follow daily in ICU rounding.
[2021-04-14] MEDS: SODIUM CHLORIDE 0.9% IV 1,000 ML 100 ML IV CONT (12:11)
--- NOTE | 2021-04-14 12:32 | WPDNEUROPN ---
Progress Note: A&P Additional Plan as documented above Subjective Date/time seen: 04/14/21 12:32 status post acute respiratory failure 2nd to seizure with initial intubation to protect the ear with now patient has been extubated is still in the ICU and the possibility of secondary infections are being covered, on examination he is arousable follow the instruction by closing the eyelids looking to the right and to the left side and moving the arms the EEG has been reviewed which is definitely abnormal between right and left hemisphere and will have to repeat the EEG again after 48 to 72 hours in the meantime other treatment will be continued as such Objective Data Vital Signs Vital Signs: Vital Signs - 24 hr 04/13/21 14:00 04/13/21 16:00 04/13/21 17:21 Temperature 37.6 C H Pulse Rate 89 89 96 Respiratory Rate 16 22 H Blood Pressure 182/96 H 164/90 H Pulse Oximetry 100 98 04/13/21 18:00 04/13/21 19:55 04/13/21 20:00 Temperature 38.4 C H Pulse Rate 91 90 90 Respiratory Rate 18 22 H Blood Pressure 176/99 H 170/92 H Pulse Oximetry 98 98 04/13/21 20:28 04/13/21 22:00 04/13/21 22:53 Temperature 38.4 C H 37.1 C Pulse Rate 97 100 Respiratory Rate 24 H 20 Blood Pressure 158/86 H Pulse Oximetry 98 97 04/13/21 23:24 04/14/21 00:00 04/14/21 02:00 Temperature 37.1 C Pulse Rate 93 73 92 Respiratory Rate 19 18 Blood Pressure 155/90 H 163/89 H Pulse Oximetry 95 99 04/14/21 04:00 04/14/21 05:40 04/14/21 06:00 Temperature 37.2 C Pulse Rate 92 97 98 Respiratory Rate 16 20 Blood Pressure 163/99 H 166/92 H Pulse Oximetry 97 95 04/14/21 08:00 04/14/21 08:20 04/14/21 12:00 Temperature 36.5 C 36.9 C Pulse Rate 98 96 Respiratory Rate 20 18 Blood Pressure 166/95 H 162/93 H Pulse Oximetry 95 94 98 04/14/21 12:14 Temperature Pulse Rate 93 Respiratory Rate Blood Pressure Pulse Oximetry Intake/Output Intake/Output: Intake & Output 01/16/22 04/12/21 04/13/21 04/14/21 23:59 23:59 23:59 23:59 Intake Total 7087 1225 4352 1266 Output Total 576 4083 2439 1300 Balance 1126 1458 1873 -34 Meds/Results Medications: Active Medications Generic Name Dose Route Start Last Admin Trade Name Freq PRN Reason Stop Dose Admin Acetaminophen 650 mg 04/05/21 10:23 04/13/21 05:17 Acetaminophen 325 Mg Tablet PO 650 mg Q4H PRN Administration Headache, pain 1-3 Docusate Sodium 100 mg 04/13/21 09:00 04/14/21 08:22 Docusate Sodium Liq 100 Mg/10 Ml Udc PO Not Given DAILY [facility] Duloxetine HCl 60 mg 04/06/21 09:00 04/13/21 08:54 Duloxetine Hcl 60 Mg Capsule.Dr PO Not Given DAILY [facility] Enoxaparin Sodium 40 mg 04/05/21 10:30 04/12/21 07:50 Enoxaparin 40 Mg/0.4 Ml Syringe SUB-Q 40 mg DAILY [facility] Administration Folic Acid 1 mg 04/06/21 09:00 04/14/21 08:22 Folic Acid 1 Mg Tablet PO Not Given DAILY [facility] Home Med 1 each 04/06/21 16:00 04/14/21 08:22 Leflunomide 10 Mg Tablet Home Med PO 05/06/21 15:59 Not Given DAILY [facility] Hydralazine HCl 5 mg 04/11/21 15:37 Hydralazine Hcl 20 Mg/Ml Vial IV PUSH TID PRN Blood Pressure - High Sodium Chloride 1,000 mls @ 100 mls/hr 04/11/21 12:15 04/14/21 12:11 Normal Saline Iv IV CONT 100 mls/hr .Q10H [facility] Administration Levetiracetam 1,000 mg in 100 mls @ 400 mls/hr 04/12/21 06:00 04/14/21 05:39 Keppra Iv IVPB 400 mls/hr Q12H [facility] Administration Acyclovir Sodium 800 mg/ 266 mls @ 266 mls/hr 04/11/21 21:00 04/14/21 12:11 Dextrose IVPB 266 mls/hr Q8H [facility] Administration Metronidazole 500 mg in 100 mls @ 100 mls/hr 04/11/21 22:00 04/14/21 05:38 Flagyl 500 Mg/Iso Soln 100 Ml IVPB 100 mls/hr Q8HR [facility] Administration Ceftriaxone Sodium 2 gm/ 100 mls @ 200 mls/hr 04/11/21 20:00 04/13/21 20:29 Sodium Chloride IVPB 200 mls/hr Q24H [facility] Administration Levothyroxine Sodium 100 mcg 04/08/21 11:20 04/14/21 08:22 Levothyroxine So
--- NOTE | 2021-04-14 14:42 | PC.NURSE ---
This patient, Ras Moreno, was received from ICU on 04/14/21 at 1443. Patient/family oriented to unit policies and routines
[2021-04-14] MEDS: cefTRIAXone 2 GM in SODIUM CHLORIDE 0.9% IV 100 ML 200 ML IVPB (19:33)
[2021-04-14] MEDS: MINERAL OIL/WHITE PETROLATUM OINTMENT 1 APPLIC EACH EYE (19:37)
[2021-04-14 22:51] LABS: Vancomycin Trough < 5.0 ug/mL (10.0-20.0)
[2021-04-15] VITALS (20 sets, daily range): BP systolic 150–178; BP diastolic 88–114; PULSE 89–115; RESP 16–22; TEMP 36.4–37.1; O2SAT 95–99
[2021-04-15] MEDS: METOPROLOL TARTRATE INJ 5 MG/5 ML VIAL IV PUSH ×5 (00:16→23:52)
[2021-04-15] MEDS: SODIUM CHLORIDE 0.9% IV 1,000 ML 100 ML IV CONT ×2 (02:03→20:51)
[2021-04-15] MEDS: ACYCLOVIR SODIUM IVPB 800 MG in DEXTROSE 5% IN WATER 250 ML 266 MG IVPB ×3 (04:25→21:57)
[2021-04-15] MEDS: levETIRAcetam 1000MG/NACL100ML 1,000 MG/100 ML BAG 400 MG IVPB ×2 (05:42→17:30)
[2021-04-15] MEDS: metroNIDAZOLE 500 MG/ISO 100ML 500 MG/100 ML BAG 100 MG IVPB ×3 (06:03→21:58)
[2021-04-15 06:31] LABS: Basophils Absolute Auto 0.1 K/mm3 (0.0-0.1); Basophils Percent Auto 0.8 % (0.2-1.2); Eosinophils Absolute Auto 0.1 K/mm3 (0-0.3); Eosinophils Percent Auto 0.9 % (0-4.4); Hematocrit 37.3 % (42.0-52.0); Hemoglobin 12.2 g/dL (14.0-18.0); Immature Granulocyte Absolute 0.04 K/mm3 (0.00-0.031); Immature Granulocyte Percent A 0.5 % (0-0.5); Lymphocytes Absolute Auto 0.79 K/mm3 (0.9-3.2); Lymphocytes Percent Auto 10.5 % (18.3-44.2); Mean Corpuscular HGB Conc 32.7 g/dl (32-36); Mean Corpuscular Hemoglobin 28.2 pg (26-34); Mean Corpuscular Volume 86.3 fl (80-100); Mean Platelet Volume 10.6 fl (7.4-10.4); Monocytes Absolute Auto 1.3 K/mm3 (0.1-0.6); Monocytes Percent Auto 17.8 % (2.6-8.5); Neutrophils Absolute Auto 5.2 K/mm3 (1.3-6.7); Neutrophils Percent Auto 69.5 % (45.5-73.1); Platelet Count Result 284 k/mm3 (150-375); Red Blood Count 4.32 M/mm3 (4.6-6.20); Red Cell Distribution Width 15.8 % (11.5-14.5); White Blood Count 7.5 K/mm3 (4.5-10.0)
[2021-04-15 06:54] LABS: Alanine Aminotransferase 17 U/L (4-50); Albumin Level 3.3 g/dL (3.5-5.1); Alkaline Phosphatase 76 U/L (38-126); Anion Gap 9 mmol/L (8-16); Aspartate Amino Transferase 26 U/L (17-59); Bilirubin,Total 0.5 mg/dL (0.2-1.3); Blood Urea Nitrogen 9 mg/dL (9-20); Calcium 9.4 mg/dL (8.4-10.2); Carbon Dioxide 24 mmol/L (22-30); Chloride 100 mmol/L (98-107); Estimated CRCL calculation 88 ml/min; Estimated Glomerular Filt Rate > 60; Glucose 115 mg/dL (65-110); Magnesium 1.8 mg/dL (1.6-2.3); Sodium 133 mmol/L (137-145)
[2021-04-15] MEDS: PANTOPRAZOLE SODIUM IV 40 MG VIAL IV PUSH (08:40)
[2021-04-15] MEDS: hydrALAZINE HCL 20 MG/ML VIAL 5 MG IV PUSH ×2 (08:47→14:40)
[2021-04-15] MEDS: MINERAL OIL/WHITE PETROLATUM OINTMENT 1 APPLIC EACH EYE ×2 (09:41→21:59)
[2021-04-15] MEDS: POTASSIUM CHLORIDE INJ 40 MEQ in SODIUM CHLORIDE 0.9% IV 500 ML 130 MEQ IVPB (09:48)
--- NOTE | 2021-04-15 11:46 | WPDNEUROPN ---
Progress Note: A&P Additional Plan improving alertness with no recurrence of the seizure but has been noted to have left-sided weakness in addition his EEG is abnormal to going down to the CT scan of the head for ruling out any acute changes will definitely benefit on the MRI later on Subjective Date/time seen: 04/15/21 11:46 is status post respiratory failure with seizure disorder has been extubated and moved to the regular floor Review of Systems Review of Systems: All systems reviewed & are unremarkable except as noted in HPI and below Exam Const: General: awake and in distress Nutritional Appearance: overweight Orientation/consciousness: patient obtunded Limitations: behavioral limitations, language barrier and physical limitations Eyes: General: appearance normal, both eyes and all related structures Neck: Neck: full ROM and no lymphadenopathy Resp: Effort & Inspection: normal respiratory effort Auscultation: clear to auscultation bilaterally Cardio: Rate: regular rate Rhythm: regular rhythm GI: Auscultation: normal bowel sounds Neuro: Cranial nerves: Yes Equal, round and reactive pupils present, Yes Nystagmus not present, Yes Normal gag reflex present and Yes Ability to bilaterally rotate head present Cognition (Neuro): abnormal cognition Speech: Abnormal speech present Gait exam (Neuro): Unable to assess gait Motor exam (neuro): No tremor noted Deep tendon reflexes (DTR's): Right triceps reflex intensity grade: 1+, Left triceps reflex intensity grade: 1+, Rt Biceps (C5, C6): 1+, Left biceps reflex intensity grade: 1+, Right brachioradialis reflex intensity grade: 1+, Left brachioradialis reflex intensity grade: 1+, Right patellar reflex intensity grade: 1+, Left patellar reflex intensity grade: 1+, Right ankle reflex intensity grade: 1+ and Left ankle reflex intensity grade: 1+ Plantar Reflex Responses: equivocal: bilateral Psych: Appearance: disheveled Speech and movement: Restless speech present Affect: Indifferent affect present Thought process: Impoverished thought process present Thought content: Yes other Insight: Other insight findings present (Psych) Judgement: Other judgement findings present (Psych) Objective Data Vital Signs Vital Signs: Vital Signs - 24 hr 04/14/21 12:00 04/14/21 12:14 04/14/21 16:00 Temperature 36.9 C Pulse Rate 95 93 106 H Respiratory Rate 18 Blood Pressure 162/93 H Pulse Oximetry 98 04/14/21 17:51 04/14/21 18:00 04/14/21 20:00 Temperature 36.8 C Pulse Rate 112 H 110 H Respiratory Rate 12 Blood Pressure 158/90 H Pulse Oximetry 96 96 04/14/21 21:38 04/15/21 00:00 04/15/21 00:16 Temperature 36.8 C Pulse Rate 115 H 109 H 115 H Respiratory Rate 16 Blood Pressure 175/98 H 176/89 H Pulse Oximetry 96 04/15/21 00:33 04/15/21 04:00 04/15/21 05:19 Temperature 36.9 C 37.1 C Pulse Rate 106 H 99 113 H Respiratory Rate 16 20 Blood Pressure 154/88 H Pulse Oximetry 97 95 04/15/21 06:06 04/15/21 08:00 04/15/21 08:25 Temperature 36.6 C Pulse Rate 103 H 89 89 Respiratory Rate 20 Blood Pressure 171/88 H Pulse Oximetry 98 04/15/21 08:47 04/15/21 10:00 Temperature 36.5 C Pulse Rate 102 H Respiratory Rate 22 H Blood Pressure 170/110 H 178/114 H Pulse Oximetry 98 Intake/Output Intake/Output: Intake & Output 04/12/21 04/13/21 04/14/21 04/15/21 23:59 23:59 23:59 23:59 Intake Total 2938 4498 3398 366 Output Total 1480 2525 3225 2200 Balance 1458 [facility] [phone] Meds/Results Medications: Active Medications Generic Name Dose Route Start Last Admin Trade Name Freq PRN Reason Stop Dose Admin Acetaminophen 650 mg 04/05/21 10:23 04/13/21 05:17 Acetaminophen 325 Mg Tablet PO 650 mg Q4H PRN Administration Headache, pain 1-3 Docusate Sodium 100 mg 04/13/21 09:00 04/15/21 08:07 Docusate Sodium Liq 100 Mg/10 Ml Udc PO Not Given DAILY [facility] Duloxetine HCl 60 mg 04/06/21 09:00 01
[2021-04-15 12:35] LABS: Angiotensin Converting Enzyme 9.9 U/L (9-67)
--- NOTE | 2021-04-15 15:48 | PC.NURSE ---
On 04/15/21, the student, [Kush Mullen], provided care and completed [facility] documentation on this patient. I have reviewed the student's documentation and agree with the findings.
--- NOTE | 2021-04-15 16:36 | PM.IMPN ---
Progress Note: A&P Assessment and Plan (1) Acute respiratory failure: Code(s): J96.00 - Acute respiratory failure, unspecified whether with hypoxia or hypercapnia Status: Acute Assessment and Plan: Acute Respiratory failure secondary to seizures and inability to protect airway Patient was extubated after a weaning trial yesterday and has been maintaining his saturation on nasal cannula He is on Rocephin and Flagyl to cover for aspiration pneumonia which will be continued CT chest showed emphysema and mostly atelectasis 04/15/2021 interval history: patient presented with acute mental status change and later developed seizure later was intubated to protect airways patient was in ICU remained clinically stable and was extubated transferred to medical floor, patient had a MRI it was normal patient had a EEG is abnormal, patient being treated with Keppra and has not had any seizure however patient remains somnolent unable to provide any review of symptom, patient is not able to participate and speech evaluation, discussed with a neurologist will order repeat MRI, patient's family would like patient to transfer to tertiary care, I called [facility], [facility] and [facility] there are no beds available currently due to COVID upsurge, letter I spoke with the neurologist from [facility] Dr. Wallace and discussed the treatment plan and the doctor agreed and with our plan and recommended to continue, and a main patient developed seizure status epileptics to call for transfer, will continue to monitor and further recommendation to follow. I spoke with the patient's son Syed and gave all the updates (2) Seizure: Code(s): R56.9 - Unspecified convulsions Status: Acute Assessment and Plan: Patient had witnessed seizure prior to admission to ICU. Recent MRI which was negative Neurology is following off propofol now Continue Keppra and seizure precautions He had EEG 04/07 Abnormal record due to the presence of bihemispheric theta and delta activity without any paroxysmal discharge. These abnormalities are suggestive of underlying organic or metabolic encephalopathy or neuro degenerative process clinical correlation recommended. He had another EEG done this morning report of which is pending (3) Encephalopathy: Code(s): G93.40 - Encephalopathy, unspecified Status: Acute Assessment and Plan: etiology of his presenting symptoms is not fully clear at this time upon review of his chart, his symptoms suggest of NPH but his MRI does not show any ventricular dilation. TSH ammonia B12 folate ammonia normal calcium levels were elevated but not high enough to explain all the symptoms EEG was abnormal but not diagnostic repeat EEG was done today and report is pending Patient now extubated but continues to be drowsy although improving Neurology is following 04/12 LP was done which had opening pressure of 22, 90 WBCs with 76% lymphocyte, normal glucose level, and slightly elevated protein at 80. Her Gram stain is negative These findings will suggest viral meningitis/encephalitis, some neuro disease like neurosyphilis, encephalitis Patient was started on empiric antibiotics for meningitis and acyclovir to cover for HSV encephalitis After LP results, antibacterials except the coverage for pneumonia was discontinued but acyclovir is continued until HSV results are back. Other testing like cryptococcal antigen, Lyme, EBV West Nile are pending I have also ordered RPR which is negative, FTA-ABS (pending) to evaluate for neurosyphilis HIV is negative (4) Hypercalcemia: Code(s): E83.52 - Hypercalcemia Status: Acute Assessment and Plan: nephrology has been consulted and workup including Alfredo level and vitamin-D level has been ordered for hyperparathyroidism and sarcoidosis continue IV fluids but decrease rate Level is improved CT chest abdomen pelvis has above-mentioned (5) Urinary incon
[2021-04-15 19:19] LABS: Treponema pallidum Ab FTA ABS Nonreactive (Nonreactive)
[2021-04-15 20:46] LABS: Vitamin D 1,25 (OH)2 Total 37 pg/mL (18-72); Vitamin D2 1,25 (OH)2 <8 pg/mL; Vitamin D3 1,25 (OH)2 37 pg/mL
[2021-04-15] MEDS: cefTRIAXone 2 GM in SODIUM CHLORIDE 0.9% IV 100 ML IVPB (20:51)
[2021-04-16] VITALS (17 sets, daily range): BP systolic 152–170; BP diastolic 82–99; PULSE 84–100; RESP 17–24; TEMP 36–36.7; O2SAT 96–100
[2021-04-16] MEDS: ACYCLOVIR SODIUM IVPB 800 MG in DEXTROSE 5% IN WATER 250 ML 266 MG IVPB ×3 (05:55→20:58)
[2021-04-16] MEDS: METOPROLOL TARTRATE INJ 5 MG/5 ML VIAL IV PUSH ×4 (06:08→23:17)
[2021-04-16] MEDS: metroNIDAZOLE 500 MG/ISO 100ML 500 MG/100 ML BAG 100 MG IVPB ×3 (06:09→22:11)
[2021-04-16] MEDS: levETIRAcetam 1000MG/NACL100ML 1,000 MG/100 ML BAG 400 MG IVPB ×2 (06:13→17:50)
[2021-04-16 06:25] LABS: Magnesium 1.7 mg/dL (1.6-2.3)
[2021-04-16] MEDS: PANTOPRAZOLE SODIUM IV 40 MG VIAL IV PUSH (08:18)
[2021-04-16] MEDS: SODIUM CHLORIDE 0.9% IV 1,000 ML 100 ML IV CONT (08:18)
[2021-04-16] MEDS: MINERAL OIL/WHITE PETROLATUM OINTMENT 1 APPLIC EACH EYE ×2 (08:19→20:26)
[2021-04-16 08:29] LABS: Alanine Aminotransferase 14 U/L (4-50); Albumin Level 2.7 g/dL (3.5-5.1); Alkaline Phosphatase 68 U/L (38-126); Anion Gap 10 mmol/L (8-16); Aspartate Amino Transferase 25 U/L (17-59); Bilirubin,Total 0.4 mg/dL (0.2-1.3); Blood Urea Nitrogen 8 mg/dL (9-20); Calcium 8.3 mg/dL (8.4-10.2); Carbon Dioxide 17 mmol/L (22-30); Chloride 108 mmol/L (98-107); Estimated CRCL calculation 111 ml/min; Estimated Glomerular Filt Rate > 60; Glucose 81 mg/dL (65-110); Potassium 2.8 mmol/L (3.4-5.0); Sodium 135 mmol/L (137-145)
[2021-04-16 08:42] LABS: Mean Corpuscular HGB Conc 33.3 g/dl (32-36); Mean Corpuscular Hemoglobin 28.6 pg (26-34); Mean Corpuscular Volume 85.9 fl (80-100); Mean Platelet Volume 10.2 fl (7.4-10.4); Platelet Count Result 310 k/mm3 (150-375); Red Blood Count 4.54 M/mm3 (4.6-6.20); Red Cell Distribution Width 15.7 % (11.5-14.5); White Blood Count 7.7 K/mm3 (4.5-10.0)
[2021-04-16] MEDS: KCL 40 MEQ/WATER 100 ML 100 ML 25 ML IVPB (09:23)
--- NOTE | 2021-04-16 11:08 | PC.NURSE ---
call from pt's son, updated him on pt condition, call transferred to room for pt to speak to family, he was able to say a few things but did have garbled speech pattern
--- NOTE | 2021-04-16 11:34 | PCNFU ---
Addendum entered by Capri Nicole, RD, LDN 04/16/21 13:12: consult for PPN. Patient has peripheral access for Clinimix 4.25/5 at 40 ml/hr and 250 ml of 20% of Lipid Emulsion which will provide 663 kcals and 41 gms protein. Meeting 32% of caloric needs. Recommend increasing rate to 50 ml/hr day 2. RD will continue to monitor every 3 days. Original Note: Nutrition Follow-Up Complete: Inadequate oral intake related to recent extubation as evidenced by NPO diet order. Goal: Patient to meet estimated nutritional needs. Patient has limited progress towards goal. We will continue current goal. Pt current nutrition is NPO. Last recorded weight is 97.6 kg, up from 95.5 kg. Bowel Motility: Last reported BM 04/10 Labs Reviewed:Cr 0.6, BUN 8, Na 135, K 2.8,Hct 39.0,Hgb 13.0 Meds Noted: Flagyl,Keppra, Lopressor, Protonix, KCL, NS Skin: WNL Additional Notes: Patient remains NPO x 4 days. Discussed nutritional status with MD and nurse today. Plans for patient to have MBS when more alert. MRI has been ordered. Dobbhoff is in place but coiled per nursing. Tube feeding recommendations: Glucerna 1.2 at 20 ml/hr advance by 10 ml q 4 hours to goal rate of 1848 kcals/92 gms protein/1771 ml water. Free water flush 30 ml q 4 hours. Monitor labs, medications, weight and oral intake every 3 days.
--- NOTE | 2021-04-16 12:49 | WPDNEUROPN ---
Progress Note: A&P Additional Plan encephalopathy with seizure Subjective Date/time seen: 04/16/21 12:49 70 years old with 1. Seizures 2. Hypoxia with cardiopulmonary arrest requiring the intubation and intensive care hospitalization 3. Covered with the Rocephin and Flagyl for the possibility of aspiration pneumonia 4 initial MRI negative and patient is on anticonvulsants 5. Encephalopathy 5. Initial spinal fluid with 90 nucleated cells, 22 neutrophils 2 monocytes and 76 lymphocytes and 80 protein with cultures up until now negative particularly for the fungus on smear and so as the blood culture, CSF cytology is negative for malignant cells Review of Systems Review of Systems: All systems reviewed & are unremarkable except as noted in HPI and below Exam Const: General: in distress and confusion Nutritional Appearance: average body habitus Orientation/consciousness: patient obtunded Limitations: behavioral limitations and physical limitations Eyes: Visual Vee: abnormal by confrontation ( lethargic) Eyelids: eyelids normal Conjunctivae: conjunctivae normal Sclera: sclerae normal Cornea: corneas normal Neck: Neck: full ROM and no lymphadenopathy Resp: Effort & Inspection: respiratory distress Cardio: Rate: regular rate Neuro: General: moves all extremities Cranial nerves: Yes Nystagmus not present Cognition (Neuro): abnormal cognition Speech: Abnormal speech present Motor exam (neuro): No tremor noted, Motor fasciculations not present and Normal motor muscle tone present throughout Deep tendon reflexes (DTR's): Right triceps reflex intensity grade: 1+, Left triceps reflex intensity grade: 1+, Rt Biceps (C5, C6): 1+, Left biceps reflex intensity grade: 1+, Right brachioradialis reflex intensity grade: 1+, Left brachioradialis reflex intensity grade: 1+, Right patellar reflex intensity grade: 1+, Left patellar reflex intensity grade: 1+, Right ankle reflex intensity grade: 1+ and Left ankle reflex intensity grade: 1+ Plantar Reflex Responses: equivocal: bilateral Objective Data Vital Signs Vital Signs: Vital Signs - 24 hr 04/15/21 14:00 04/15/21 16:00 04/15/21 17:29 Temperature 36.5 C Pulse Rate 98 95 95 Respiratory Rate 20 Blood Pressure 174/110 H Pulse Oximetry 98 04/15/21 18:19 04/15/21 19:55 04/15/21 20:00 Temperature 36.6 C 36.6 C Pulse Rate 95 104 H 98 Respiratory Rate 20 20 Blood Pressure 151/98 H 150/95 H Pulse Oximetry 98 97 97 04/15/21 23:40 04/15/21 23:52 04/16/21 00:00 Temperature 36.4 C L Pulse Rate 102 H 103 H 90 Respiratory Rate 20 Blood Pressure 152/99 H Pulse Oximetry 99 04/16/21 04:00 04/16/21 04:08 04/16/21 06:08 Temperature 36.6 C Pulse Rate 94 84 84 Respiratory Rate 22 H Blood Pressure 160/89 H Pulse Oximetry 98 04/16/21 08:15 04/16/21 09:48 04/16/21 11:46 Temperature 36.4 C L 36.1 C L Pulse Rate 92 92 96 Respiratory Rate 20 20 20 Blood Pressure 155/82 H 154/99 H Pulse Oximetry 96 96 100 04/16/21 11:56 Temperature Pulse Rate 96 Respiratory Rate Blood Pressure Pulse Oximetry Intake/Output Intake/Output: Intake & Output 04/13/21 04/14/21 04/15/21 04/16/21 23:59 23:59 23:59 23:59 Intake Total 4498 3398 2398 1466 Output Total 2525 3225 4000 2050 Balance Replaced by [facility] [phone] Meds/Results Medications: Active Medications Generic Name Dose Route Start Last Admin Trade Name Freq PRN Reason Stop Dose Admin Acetaminophen 650 mg 04/05/21 10:23 04/13/21 05:17 Acetaminophen 325 Mg Tablet PO 650 mg Q4H PRN Administration Headache, pain 1-3 Docusate Sodium 100 mg 04/13/21 09:00 04/15/21 08:07 Docusate Sodium Liq 100 Mg/10 Ml Udc PO Not Given DAILY [facility] Duloxetine HCl 60 mg 04/06/21 09:00 04/13/21 08:54 Duloxetine Hcl 60 Mg Capsule.Dr PO Not Given DAILY [facility] Enoxaparin Sodium 40 mg 04/05/21 10:30 04/12/21 07:50 Enoxaparin 40 Mg/0.4 Ml Syringe SUB-Q 40 mg DAILY [facility] A
--- NOTE | 2021-04-16 12:51 | PC.NURSE ---
pt going for MRI ativan administered prior to test
--- NOTE | 2021-04-16 12:56 | PM.IMPN ---
Progress Note: A&P Assessment and Plan (1) Acute respiratory failure: Code(s): J96.00 - Acute respiratory failure, unspecified whether with hypoxia or hypercapnia Status: Acute Assessment and Plan: Acute Respiratory failure secondary to seizures and inability to protect airway Patient was extubated after a weaning trial yesterday and has been maintaining his saturation on nasal cannula He is on Rocephin and Flagyl to cover for aspiration pneumonia which will be continued CT chest showed emphysema and mostly atelectasis 04/15/2021 interval history: patient presented with acute mental status change and later developed seizure later was intubated to protect airways patient was in ICU remained clinically stable and was extubated transferred to medical floor, patient had a MRI it was normal patient had a EEG is abnormal, patient being treated with Keppra and has not had any seizure however patient remains somnolent unable to provide any review of symptom, patient is not able to participate and speech evaluation, discussed with a neurologist will order repeat MRI, patient's family would like patient to transfer to tertiary care, I called [facility], [facility] and [facility] there are no beds available currently due to COVID upsurge, letter I spoke with the neurologist from [facility] Dr. Wallace and discussed the treatment plan and the doctor agreed and with our plan and recommended to continue, and a main patient developed seizure status epileptics to call for transfer, will continue to monitor and further recommendation to follow. I spoke with the patient's son Syed and gave all the updates. 04/16/2021 interval history: patient remains clinically stable however his more somnolent and not very responsive today a repeat MRI as ordered, patient is not able to participate and modified swallow study and Dobbhoff remains coiled, will start patient on PPN for nutrition, patient is seen by neurologist suspect prognosis is poor. (2) Seizure: Code(s): R56.9 - Unspecified convulsions Status: Acute Assessment and Plan: Patient had witnessed seizure prior to admission to ICU. Recent MRI which was negative Neurology is following off propofol now Continue Keppra and seizure precautions He had EEG 04/07 Abnormal record due to the presence of bihemispheric theta and delta activity without any paroxysmal discharge. These abnormalities are suggestive of underlying organic or metabolic encephalopathy or neuro degenerative process clinical correlation recommended. He had another EEG done this morning report of which is pending (3) Encephalopathy: Code(s): G93.40 - Encephalopathy, unspecified Status: Acute Assessment and Plan: etiology of his presenting symptoms is not fully clear at this time upon review of his chart, his symptoms suggest of NPH but his MRI does not show any ventricular dilation. TSH ammonia B12 folate ammonia normal calcium levels were elevated but not high enough to explain all the symptoms EEG was abnormal but not diagnostic repeat EEG was done today and report is pending Patient now extubated but continues to be drowsy although improving Neurology is following 04/12 LP was done which had opening pressure of 22, 90 WBCs with 76% lymphocyte, normal glucose level, and slightly elevated protein at 80. Her Gram stain is negative These findings will suggest viral meningitis/encephalitis, some neuro disease like neurosyphilis, encephalitis Patient was started on empiric antibiotics for meningitis and acyclovir to cover for HSV encephalitis After LP results, antibacterials except the coverage for pneumonia was discontinued but acyclovir is continued until HSV results are back. Other testing like cryptococcal antigen, Lyme, EBV West Nile are pending I have also ordered RPR which is negative, FTA-ABS (pending) to evaluate for neurosyphilis HIV is negative (4) Hypercalcemia:
--- NOTE | 2021-04-16 13:50 | PC.NURSE ---
returned from MRI, test completed
[2021-04-16 14:44] LABS: Vitamin A 36 mcg/dL (38-98)
[2021-04-16] MEDS: AMINO ACIDS 4.25%/D5W/LYTES/CA 2,000 ML 80 ML IV CONT (17:58)
[2021-04-16] MEDS: FAT EMULSIONS IV 20% 250 ML 20.83 ML IVPB (17:58)
[2021-04-16 19:44] LABS: Potassium 3.4 mmol/L (3.4-5.0)
--- NOTE | 2021-04-16 19:53 | PC.NURSE ---
son Syed and daughter Dana were allowed to come visit pt and did stay for aprox 35 minutes, answered questions and reviewed plan of care with family
[2021-04-16] MEDS: cefTRIAXone 2 GM in SODIUM CHLORIDE 0.9% IV 100 ML IVPB (20:17)
[2021-04-16 22:31] LABS: Epstein Barr Virus DNA PCR Not Detected (Not Detected); Source Epstein Barr Virus CSF
[2021-04-17] VITALS (19 sets, daily range): BP systolic 149–182; BP diastolic 88–100; PULSE 79–117; RESP 20–28; TEMP 36.4–37; O2SAT 92–97
[2021-04-17 00:30] LABS: Glucose Point of Care 131 mg/dl (65-105)
[2021-04-17] MEDS: ACYCLOVIR SODIUM IVPB 800 MG in DEXTROSE 5% IN WATER 250 ML 266 MG IVPB ×3 (04:43→20:01)
[2021-04-17 05:18] LABS: Hematocrit 40.6 % (42.0-52.0); Hemoglobin 13.5 g/dL (14.0-18.0); Mean Corpuscular HGB Conc 33.3 g/dl (32-36); Mean Corpuscular Hemoglobin 28.6 pg (26-34); Mean Platelet Volume 10.1 fl (7.4-10.4); Platelet Count Result 322 k/mm3 (150-375); Red Blood Count 4.72 M/mm3 (4.6-6.20); Red Cell Distribution Width 15.7 % (11.5-14.5); White Blood Count 8.3 K/mm3 (4.5-10.0)
[2021-04-17 05:31] LABS: Potassium 3.5 mmol/L (3.4-5.0)
[2021-04-17 05:40] LABS: Alanine Aminotransferase 19 U/L (4-50); Albumin Level 3.6 g/dL (3.5-5.1); Alkaline Phosphatase 76 U/L (38-126); Anion Gap 7 mmol/L (8-16); Aspartate Amino Transferase 30 U/L (17-59); Bilirubin,Total 0.4 mg/dL (0.2-1.3); Blood Urea Nitrogen 12 mg/dL (9-20); Carbon Dioxide 29 mmol/L (22-30); Chloride 101 mmol/L (98-107); Estimated CRCL calculation 85 ml/min; Estimated Glomerular Filt Rate > 60; Glucose 128 mg/dL (65-110); Magnesium 2.1 mg/dL (1.6-2.3); Phosphorus 3.1 mg/dL (2.5-4.5); Sodium 137 mmol/L (137-145)
[2021-04-17] MEDS: levETIRAcetam 1000MG/NACL100ML 1,000 MG/100 ML BAG 400 MG IVPB ×2 (05:57→17:07)
[2021-04-17] MEDS: METOPROLOL TARTRATE INJ 5 MG/5 ML VIAL IV PUSH ×4 (05:57→23:41)
[2021-04-17] MEDS: metroNIDAZOLE 500 MG/ISO 100ML 500 MG/100 ML BAG 100 MG IVPB ×3 (06:15→20:04)
[2021-04-17 06:23] LABS: Glucose Point of Care 152 mg/dl (65-105)
[2021-04-17 08:18] LABS: Glucose Point of Care 150 mg/dl (65-105)
[2021-04-17] MEDS: PANTOPRAZOLE SODIUM IV 40 MG VIAL IV PUSH (09:17)
[2021-04-17] MEDS: MINERAL OIL/WHITE PETROLATUM OINTMENT 1 APPLIC EACH EYE ×2 (09:17→20:08)
[2021-04-17] MEDS: FAT EMULSIONS IV 20% 250 ML 20.83 ML IVPB (09:17)
--- NOTE | 2021-04-17 10:16 | PM.IMPN ---
Progress Note: A&P Assessment and Plan (1) Acute respiratory failure: Code(s): J96.00 - Acute respiratory failure, unspecified whether with hypoxia or hypercapnia Status: Acute Assessment and Plan: Acute Respiratory failure secondary to seizures and inability to protect airway Patient was extubated after a weaning trial yesterday and has been maintaining his saturation on nasal cannula He is on Rocephin and Flagyl to cover for aspiration pneumonia which will be continued CT chest showed emphysema and mostly atelectasis 04/15/2021 interval history: patient presented with acute mental status change and later developed seizure later was intubated to protect airways patient was in ICU remained clinically stable and was extubated transferred to medical floor, patient had a MRI it was normal patient had a EEG is abnormal, patient being treated with Keppra and has not had any seizure however patient remains somnolent unable to provide any review of symptom, patient is not able to participate and speech evaluation, discussed with a neurologist will order repeat MRI, patient's family would like patient to transfer to tertiary care, I called [facility], [facility] and [facility] there are no beds available currently due to COVID upsurge, letter I spoke with the neurologist from [facility] Dr. Wallace and discussed the treatment plan and the doctor agreed and with our plan and recommended to continue, and a main patient developed seizure status epileptics to call for transfer, will continue to monitor and further recommendation to follow. I spoke with the patient's son Syed and gave all the updates. 04/16/2021 interval history: patient remains clinically stable however his more somnolent and not very responsive today a repeat MRI as ordered, patient is not able to participate and modified swallow study and Dobbhoff remains coiled, will start patient on PPN for nutrition, patient is seen by neurologist suspect prognosis is poor. 04/17/2021 interval history: patient again today remains clinically stable however his more somnolent and not very responsive today, patient had a repeat MRI on 04/16 there is no acute changes, patient was not able to participate and modified swallow study on 04/16and Dobbhoff remains coiled patient pulled it out last night, started patient on PPN for nutrition, patient is seen by neurologist suspect prognosis is poor. spoke with the patient's son Syed and daughter Dana on 04/16/2021 and both of them came and saw their father, will continue to monitor and further recommendation to follow. (2) Seizure: Code(s): R56.9 - Unspecified convulsions Status: Acute Assessment and Plan: Patient had witnessed seizure prior to admission to ICU. Recent MRI which was negative Neurology is following off propofol now Continue Keppra and seizure precautions He had EEG 04/07 Abnormal record due to the presence of bihemispheric theta and delta activity without any paroxysmal discharge. These abnormalities are suggestive of underlying organic or metabolic encephalopathy or neuro degenerative process clinical correlation recommended. He had another EEG done this morning report of which is pending (3) Encephalopathy: Code(s): G93.40 - Encephalopathy, unspecified Status: Acute Assessment and Plan: etiology of his presenting symptoms is not fully clear at this time upon review of his chart, his symptoms suggest of NPH but his MRI does not show any ventricular dilation. TSH ammonia B12 folate ammonia normal calcium levels were elevated but not high enough to explain all the symptoms EEG was abnormal but not diagnostic repeat EEG was done today and report is pending Patient now extubated but continues to be drowsy although improving Neurology is following 04/12 LP was done which had opening pressure of 22, 90 WBCs with 76% lymphocyte, normal glucose level, and slightly el
[2021-04-17 11:38] LABS: Glucose Point of Care 159 mg/dl (65-105)
[2021-04-17] MEDS: hydrALAZINE HCL 20 MG/ML VIAL 5 MG IV PUSH (13:34)
[2021-04-17 13:51] LABS: Triglycerides 124 mg/dL (<150)
[2021-04-17 15:24] LABS: Herpes Simplex Type 1 DNA PCR Not Detected; Herpes Simplex Type 2 DNA PCR Not Detected
[2021-04-17] MEDS: AMINO ACIDS 4.25%/D5W/LYTES/CA 2,000 ML 80 ML IV CONT (15:45)
[2021-04-17 19:05] LABS: Glucose Point of Care 130 mg/dl (65-105)
[2021-04-17] MEDS: cefTRIAXone 2 GM in SODIUM CHLORIDE 0.9% IV 100 ML IVPB (19:45)
[2021-04-17 23:52] LABS: Glucose Point of Care 112 mg/dl (65-105)
[2021-04-18] VITALS (15 sets, daily range): BP systolic 109–174; BP diastolic 92–95; PULSE 90–123; RESP 14–37; TEMP 36.1–36.8; O2SAT 94–100
[2021-04-18] MEDS: LORazepam INJ (*CRX) 2 MG/ML VIAL 1 MG IV PUSH (02:59)
[2021-04-18] MEDS: FUROSEMIDE INJ 40 MG/4 ML VIAL (03:32)
[2021-04-18 03:36] LABS: Alveolar/Arterial O2 Gradient 37.1 mmHg; Base Excess ABG -1.6 mEq/l (+/-2.0); Fractional Inspired Oxygen 21 %; HCO3 ABG 21.1 mEq/l (22.0-26.0); Oxyhemoglobin 94.6 % THb (90.0-100.0); PCO2 ABG 30.5 mmHg (35.0-45.0); PO2 ABG 76.1 mmHg (80.0-100.0); PO2 FiO2 Ratio Arterial Blood 3.62 %; pH ABG 7.457 (7.350-7.450)
[2021-04-18 03:37] LABS: Device ROOM AIR; Modified Allen's Test Pass; Site Drawn LEFT RADIAL
[2021-04-18 04:54] LABS: Glucose Point of Care 32 mg/dl (65-105)
[2021-04-18 04:54] LABS: Glucose Point of Care 191 mg/dl (65-105)
[2021-04-18] MEDS: ACYCLOVIR SODIUM IVPB 800 MG in DEXTROSE 5% IN WATER 250 ML 266 MG IVPB ×3 (04:59→21:57)
[2021-04-18 05:00] LABS: Hematocrit 41.4 % (42.0-52.0); Mean Corpuscular HGB Conc 33.8 g/dl (32-36); Mean Corpuscular Hemoglobin 29.2 pg (26-34); Mean Corpuscular Volume 86.3 fl (80-100); Mean Platelet Volume 10.1 fl (7.4-10.4); Platelet Count Result 313 k/mm3 (150-375); Red Cell Distribution Width 15.6 % (11.5-14.5); White Blood Count 9.3 K/mm3 (4.5-10.0)
[2021-04-18] MEDS: levETIRAcetam 1000MG/NACL100ML 1,000 MG/100 ML BAG 400 MG IVPB (05:03)
[2021-04-18] MEDS: metroNIDAZOLE 500 MG/ISO 100ML 500 MG/100 ML BAG 100 MG IVPB ×3 (05:03→22:21)
[2021-04-18] MEDS: METOPROLOL TARTRATE INJ 5 MG/5 ML VIAL IV PUSH ×3 (05:08→17:40)
[2021-04-18 05:13] LABS: Alanine Aminotransferase 18 U/L (4-50); Albumin Level 3.5 g/dL (3.5-5.1); Alkaline Phosphatase 76 U/L (38-126); Anion Gap 8 mmol/L (8-16); Aspartate Amino Transferase 29 U/L (17-59); Bilirubin,Total 0.4 mg/dL (0.2-1.3); Blood Urea Nitrogen 14 mg/dL (9-20); Calcium 10.1 mg/dL (8.4-10.2); Carbon Dioxide 27 mmol/L (22-30); Chloride 98 mmol/L (98-107); Estimated CRCL calculation 69 ml/min; Estimated Glomerular Filt Rate > 60; Glucose 165 mg/dL (65-110); Magnesium 2.1 mg/dL (1.6-2.3); Phosphorus 4.1 mg/dL (2.5-4.5); Potassium 3.5 mmol/L (3.4-5.0); Sodium 133 mmol/L (137-145)
--- NOTE | 2021-04-18 05:38 | PM.EVENT ---
Event Note Event Note Event Note: I was called to assess patient after he seemed to be having seizure episode he was given Ativan 1 mg IV and post ictal I was called to evaluate patient after he had noisy respirations and seemed to be in respiratory distress. Subjective: Post ictal Objective: Patient is post ictal having noisy respirations oxygen saturation is 93% on room air blood pressure 150/70 Assessment and plan: 1. Seizure/altered mental status/post ictal: Seizure precautions 2. Acute respiratory distress: Likely secondary to postictal state patient placed on BiPAP for support ABG obtained and reviewed.
--- NOTE | 2021-04-18 06:24 | PC.NURSE ---
Blood sugar of 32 blood did not properly fill the accucheck strip
[2021-04-18 08:02] LABS: Glucose Point of Care 121 mg/dl (65-105)
[2021-04-18] MEDS: PANTOPRAZOLE SODIUM IV 40 MG VIAL IV PUSH (08:46)
[2021-04-18] MEDS: MINERAL OIL/WHITE PETROLATUM OINTMENT 1 APPLIC EACH EYE ×2 (08:46→22:02)
[2021-04-18] MEDS: FAT EMULSIONS IV 20% 250 ML 20.83 ML IVPB (08:57)
--- NOTE | 2021-04-18 11:27 | PM.IMPN ---
Progress Note: A&P Assessment and Plan (1) Acute respiratory failure: Code(s): J96.00 - Acute respiratory failure, unspecified whether with hypoxia or hypercapnia Status: Acute Assessment and Plan: Acute Respiratory failure secondary to seizures and inability to protect airway Patient was extubated after a weaning trial yesterday and has been maintaining his saturation on nasal cannula He is on Rocephin and Flagyl to cover for aspiration pneumonia which will be continued CT chest showed emphysema and mostly atelectasis 04/15/2021 interval history: patient presented with acute mental status change and later developed seizure later was intubated to protect airways patient was in ICU remained clinically stable and was extubated transferred to medical floor, patient had a MRI it was normal patient had a EEG is abnormal, patient being treated with Keppra and has not had any seizure however patient remains somnolent unable to provide any review of symptom, patient is not able to participate and speech evaluation, discussed with a neurologist will order repeat MRI, patient's family would like patient to transfer to tertiary care, I called [facility], [facility] and [facility] there are no beds available currently due to COVID upsurge, letter I spoke with the neurologist from [facility] Dr. Wallace and discussed the treatment plan and the doctor agreed and with our plan and recommended to continue, and a main patient developed seizure status epileptics to call for transfer, will continue to monitor and further recommendation to follow. I spoke with the patient's son Syed and gave all the updates. 04/16/2021 interval history: patient remains clinically stable however his more somnolent and not very responsive today a repeat MRI as ordered, patient is not able to participate and modified swallow study and Dobbhoff remains coiled, will start patient on PPN for nutrition, patient is seen by neurologist suspect prognosis is poor. 04/17/2021 interval history: patient again today remains clinically stable however his more somnolent and not very responsive today, patient had a repeat MRI on 04/16 there is no acute changes, patient was not able to participate and modified swallow study on 04/16and Dobbhoff remains coiled patient pulled it out last night, started patient on PPN for nutrition, patient is seen by neurologist suspect prognosis is poor. spoke with the patient's son Syed and daughter Dana on 04/16/2021 and both of them came and saw their father, will continue to monitor and further recommendation to follow. 04/18/2021 interval history:I spoke with patient's son and daughter yesterday and patient is now DNR, last night patient had an episode of seizure he was given 1 mg Ativan which aborted the seizure he was short of breath was placed on BiPAP, this morning patient is on nasal cannula, unfortunately patient still remains somnolent, patient is on Keppra 1000 mg b.i.d. will continue, patient is on PPN, will reassess tomorrow for swallow study and further recommendation to follow. (2) Seizure: Code(s): R56.9 - Unspecified convulsions Status: Acute Assessment and Plan: Patient had witnessed seizure prior to admission to ICU. Recent MRI which was negative Neurology is following off propofol now Continue Keppra and seizure precautions He had EEG 04/07 Abnormal record due to the presence of bihemispheric theta and delta activity without any paroxysmal discharge. These abnormalities are suggestive of underlying organic or metabolic encephalopathy or neuro degenerative process clinical correlation recommended. He had another EEG done this morning report of which is pending (3) Encephalopathy: Code(s): G93.40 - Encephalopathy, unspecified Status: Acute Assessment and Plan: etiology of his presenting symptoms is not fully clear at this time upon review of his chart, his symptoms sugg
[2021-04-18 12:25] LABS: Glucose Point of Care 111 mg/dl (65-105)
[2021-04-18] MEDS: levETIRAcetam 500MG/NACL 100ML 500 MG/100 ML BAG 400 MG IVPB (13:32)
[2021-04-18] MEDS: AMINO ACIDS 4.25%/D5W/LYTES/CA 2,000 ML 80 ML IV CONT (15:18)
[2021-04-18 18:42] LABS: Glucose Point of Care 139 mg/dl (65-105)
[2021-04-18] MEDS: cefTRIAXone 2 GM in SODIUM CHLORIDE 0.9% IV 100 ML 200 ML IVPB (21:06)
[2021-04-19] VITALS (14 sets, daily range): BP systolic 145–160; BP diastolic 90–97; PULSE 71–107; RESP 16–24; TEMP 36.2–37.1; O2SAT 93–100
[2021-04-19] MEDS: METOPROLOL TARTRATE INJ 5 MG/5 ML VIAL IV PUSH ×4 (00:23→17:20)
[2021-04-19 01:19] LABS: Cryptococcus Antigen Not Detected (Not Detected); Cryptococcus Specimen Source CSF
[2021-04-19] MEDS: ACYCLOVIR SODIUM IVPB 800 MG in DEXTROSE 5% IN WATER 250 ML 266 MG IVPB ×2 (04:45→12:17)
[2021-04-19 05:12] LABS: Basophils Absolute Auto 0.1 K/mm3 (0.0-0.1); Basophils Percent Auto 0.9 % (0.2-1.2); Eosinophils Absolute Auto 0.2 K/mm3 (0-0.3); Eosinophils Percent Auto 2.2 % (0-4.4); Hematocrit 40.8 % (42.0-52.0); Hemoglobin 13.8 g/dL (14.0-18.0); Immature Granulocyte Absolute 0.12 K/mm3 (0.00-0.031); Immature Granulocyte Percent A 1.4 % (0-0.5); Lymphocytes Absolute Auto 0.86 K/mm3 (0.9-3.2); Lymphocytes Percent Auto 10.1 % (18.3-44.2); Mean Corpuscular HGB Conc 33.8 g/dl (32-36); Mean Corpuscular Hemoglobin 28.9 pg (26-34); Mean Corpuscular Volume 85.5 fl (80-100); Mean Platelet Volume 10.2 fl (7.4-10.4); Monocytes Absolute Auto 1.4 K/mm3 (0.1-0.6); Monocytes Percent Auto 15.9 % (2.6-8.5); Neutrophils Absolute Auto 5.9 K/mm3 (1.3-6.7); Neutrophils Percent Auto 69.5 % (45.5-73.1); Platelet Count Result 286 k/mm3 (150-375); Red Blood Count 4.77 M/mm3 (4.6-6.20); Red Cell Distribution Width 15.7 % (11.5-14.5); White Blood Count 8.5 K/mm3 (4.5-10.0)
[2021-04-19 05:28] LABS: Alanine Aminotransferase 15 U/L (4-50); Albumin Level 3.3 g/dL (3.5-5.1); Alkaline Phosphatase 65 U/L (38-126); Anion Gap 6 mmol/L (8-16); Aspartate Amino Transferase 25 U/L (17-59); Bilirubin,Total 0.3 mg/dL (0.2-1.3); Blood Urea Nitrogen 19 mg/dL (9-20); Calcium 10.2 mg/dL (8.4-10.2); Carbon Dioxide 26 mmol/L (22-30); Chloride 100 mmol/L (98-107); Estimated CRCL calculation 76 ml/min; Estimated Glomerular Filt Rate > 60; Glucose 129 mg/dL (65-110); Magnesium 2.3 mg/dL (1.6-2.3); Potassium 3.4 mmol/L (3.4-5.0); Sodium 132 mmol/L (137-145)
[2021-04-19 05:37] LABS: INR 1.2; Prothrombin Time 14.7 Seconds (11.1-14.7)
[2021-04-19 05:38] LABS: Partial Thromboplastin Time 31.3 SECONDS (22.3-36.8)
[2021-04-19 05:45] LABS: Transferrin 155 mg/dL (206-381)
[2021-04-19] MEDS: metroNIDAZOLE 500 MG/ISO 100ML 500 MG/100 ML BAG 100 MG IVPB ×2 (06:08→13:42)
[2021-04-19 08:17] LABS: Glucose Point of Care 131 mg/dl (65-105)
[2021-04-19] MEDS: PHENobarbitaL sodium (*CRX) 130 MG/ML VIAL 60 MG IM (08:48)
[2021-04-19] MEDS: FAT EMULSIONS IV 20% 250 ML 20.8 ML IVPB (08:56)
[2021-04-19] MEDS: MINERAL OIL/WHITE PETROLATUM OINTMENT 1 APPLIC EACH EYE (09:02)
[2021-04-19] MEDS: PANTOPRAZOLE SODIUM IV 40 MG VIAL IV PUSH (09:02)
--- NOTE | 2021-04-19 10:13 | WPDNEUROPN ---
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 with normal MRI of the brain raising the possibility of viral infection for which he is being treated ,we will adjust the dosage of the anticonvulsants again Time Spent With Patient Time with patient: Greater than 35 minutes Subjective Date/time seen: 04/19/21 10:[age] years old right-handed male has been admitted to the hospital for the acute changes in the mental status, with initial presumption of seizure disorder with abnormal EEG, his spinal fluid studies were mildly abnormal ,patient has been treated with the antiviral, antibacterial infections, has been hospitalized in the intensive care as well, for the acute changes in mental status when he was intubated sedated and now back to the regular room, continues to have intermittent twitching of the left upper and left lower extremity, anti convulsant includes the Keppra in addition to his acyclovir metronidazole that is Flagyl and ceftriaxone, this morning he is easily arousable tries to follow the instruction, but still has intermittent twitching of the left upper and left lower extremity, patient's son Syed in the room all the pros and cons of the diagnosis and treatment were discussed with him while his other family members listening to the conversation on telephone. Review of Systems Review of Systems: All systems reviewed & are unremarkable except as noted in HPI and below Exam Narrative: Patient laying in bed with intermittent twitching of the left upper and left lower extremity, easily arousable tries to follow the instruction as well and also tries to express that he is uncomfortable, head normocephalic ear nose throat examination are normal there is no nystagmus of the eyes while his twitching the left upper and left lower extremity, pupils round regular reacting to light, facial grimace is symmetrical, is able to move his right upper and right lower extremity, turning his head to either side by himself spontaneously, when his son is at the bedside he is listening to him and also trying to convey the information to his son that he is uncomfortable, left plantar response is upgoing Objective Data Vital Signs Vital Signs: Vital Signs - 24 hr 04/18/21 12:01 04/18/21 12:09 04/18/21 14:00 Temperature 36.4 C L Pulse Rate 123 H 110 H 108 H Respiratory Rate 30 H Blood Pressure 142/95 H Pulse Oximetry 94 04/18/21 14:15 04/18/21 16:00 04/18/21 17:40 Temperature Pulse Rate 110 H 97 105 H Respiratory Rate 37 H Blood Pressure Pulse Oximetry 96 04/18/21 18:00 04/18/21 20:00 04/18/21 22:00 Temperature 36.6 C 36.8 C Pulse Rate 95 91 96 Respiratory Rate 20 14 22 H Blood Pressure 109/93 H 174/93 H Pulse Oximetry 100 98 100 04/19/21 00:00 04/19/21 00:23 04/19/21 02:30 Temperature 37.1 C Pulse Rate 86 86 82 Respiratory Rate 21 H Blood Pressure 145/94 H Pulse Oximetry 100 04/19/21 04:00 04/19/21 06:00 04/19/21 06:22 Temperature 36.2 C L Pulse Rate 77 82 82 Respiratory Rate 16 Blood Pressure 160/94 H Pulse Oximetry 93 Intake/Output Intake/Output: Intake & Output 04/16/21 04/17/21 04/18/21 04/19/21 23:59 23:59 23:59 23:59 Intake Total 2498 3622 3142.5 366 Output Total 3850 3225 2550 800 Balance -1352 397 592.5 -434 Meds/Results Medications: Active Medications Generic Name Dose Route Start Last Admin Trade Name Freq PRN Reason Stop Dose Admin Acetaminophen 650 mg 04/05/21 10:23 04/13/21 05:17 Acetaminophen 325 Mg Tablet PO 650 mg Q4H PRN Administration Headache, pain 1-3 Dextrose 12.5 gm 04/16/21 12:53 Dextrose 50% 25 Gm/50 Ml Syringe IV PUSH PRN PRN Hypoglycemia Protocol Docusate Sodium 100 mg 04/13/21 09:00 04/19/21 08:50 Docusate Sodium Liq 100 Mg/10 Ml Udc PO Not Given DAILY ASTER Duloxetine HCl 60 mg 04/06/21 09:00 04/13/21 08
[2021-04-19 12:03] LABS: Glucose Point of Care 123 mg/dl (65-105)
--- NOTE | 2021-04-19 12:21 | PM.IMPN ---
Progress Note: A&P Assessment and Plan (1) Acute respiratory failure: Code(s): J96.00 - Acute respiratory failure, unspecified whether with hypoxia or hypercapnia Status: Acute Assessment and Plan: Acute Respiratory failure secondary to seizures and inability to protect airway Patient was extubated after a weaning trial yesterday and has been maintaining his saturation on nasal cannula He is on Rocephin and Flagyl to cover for aspiration pneumonia which will be continued CT chest showed emphysema and mostly atelectasis 04/15/2021 interval history: patient presented with acute mental status change and later developed seizure later was intubated to protect airways patient was in ICU remained clinically stable and was extubated transferred to medical floor, patient had a MRI it was normal patient had a EEG is abnormal, patient being treated with Keppra and has not had any seizure however patient remains somnolent unable to provide any review of symptom, patient is not able to participate and speech evaluation, discussed with a neurologist will order repeat MRI, patient's family would like patient to transfer to tertiary care, I called [facility], [facility] and [facility] there are no beds available currently due to COVID upsurge, letter I spoke with the neurologist from [facility] Dr. Wallace and discussed the treatment plan and the doctor agreed and with our plan and recommended to continue, and a main patient developed seizure status epileptics to call for transfer, will continue to monitor and further recommendation to follow. I spoke with the patient's son Scotty and gave all the updates. 04/16/2021 interval history: patient remains clinically stable however his more somnolent and not very responsive today a repeat MRI as ordered, patient is not able to participate and modified swallow study and Dobbhoff remains coiled, will start patient on PPN for nutrition, patient is seen by neurologist suspect prognosis is poor. 04/17/2021 interval history: patient again today remains clinically stable however his more somnolent and not very responsive today, patient had a repeat MRI on 04/16 there is no acute changes, patient was not able to participate and modified swallow study on 04/16and Dobbhoff remains coiled patient pulled it out last night, started patient on PPN for nutrition, patient is seen by neurologist suspect prognosis is poor. spoke with the patient's son Scotty and daughter Dana on 04/16/2021 and both of them came and saw their father, will continue to monitor and further recommendation to follow. 04/18/2021 interval history:I spoke with patient's son and daughter yesterday and patient is now DNR, last night patient had an episode of seizure he was given 1 mg Ativan which aborted the seizure he was short of breath was placed on BiPAP, this morning patient is on nasal cannula, unfortunately patient still remains somnolent, patient is on Keppra 1000 mg b.i.d. will continue, patient is on PPN, will reassess tomorrow for swallow study and further recommendation to follow. 04/19/2021 interval history:on 04/18 Patient developed twitching of upper and lower extremity, neurologist was contacted suspected focal seizure patient was given extra dose of Keppra 500 mg and increased Keppra to 1250 mg b.i.d. from 1000 mg b.i.d. today patient continue to the twitching and and again neurologist contacted and recommended phenobarbital 60 mg b.i.d., currently patient's son is present in the room, patient still continue to have to focal seizure, will monitor for 12 hours and if it persist will again contact neurologist and further recommendation to follow. patient's son scotty is given information about hospice. (2) Seizure: Code(s): R56.9 - Unspecified convulsions Status: Acute Assessment and Plan: Patient had witnessed seizure prior to admission to ICU. Recent MRI which was negative Neurology is followin
[2021-04-19 12:35] LABS: Triglycerides 88 mg/dL (<150)
--- NOTE | 2021-04-19 13:28 | PCNFU ---
Nutrition Follow-Up Complete: Inadequate oral intake related to recent extubation as evidenced by NPO diet order. goal; Patient to meet estimated nutritional needs. limited progress towards goal. We will continue current goal. Pt current nutrition is PPN. Last recorded weight is 103.8 kg, up from 95.5 kg on admit. Bowel Motility:+BM reported 04/17 Labs Reviewed:Glu 129, Na 132, Alb 3.3, Hct 40.8,Hgb 13.8 Meds Noted:Keppra, Lopressor, Protonix, Flagyl, Clinimix 4.25/5 at 80 ml/hr with 250 ml of 20% Lipid Emulsion. Skin: WNL Additional Notes: Patient current with PPN providing 1153 kcals/82 gms protein. Meeting 56% of caloric needs and 86% of protein needs. Spoke with today regarding plan of care. At this time, patient is not ready for MBS. Will continue PPN. Hospice care has been discussed per MD. Agree with diet orders. Monitor labs, medications, weight and oral intake every Monday and Monday.
[2021-04-19] MEDS: AMINO ACIDS 4.25%/D5W/LYTES/CA 2,000 ML 80 ML IV CONT (14:33)
[2021-04-19 16:21] LABS: EDCOVIDSCREEN Negative (Negative)
[2021-04-19 16:35] LABS: Glucose Point of Care 114 mg/dl (65-105)
--- NOTE | 2021-04-19 17:44 | PM.TDS ---
Transfer Discharge Sum: Prov Provider Date of admission: 04/06/21 14:06 Primary care physician: Ti El MD Admitting clinician: Lety Shane MD Consults: 04/05/21 Consult to Physician Routine Comment: L/M on Dr Damon voice mail @ 16:21pm ([facility]) Consulting Provider: Raman Moore call center specialist/MD group to consult: Neurology Reason for consultation: AMS Has provider been notified: Yes 04/09/21 Care Coordination Consult Routine Comment: Reason for Consult:: Acute Rehab Consult 04/11/21 Consult to Physician Routine Comment: Consulting Provider: Daniel James Reason for consultation: Unresponsive Has provider been notified: Yes Consult to Physician Routine Comment: Spoke with @12:52([facility]) Consulting Provider: Brandon Lantigua call center specialist/MD group to consult: NEPHROLOGY Reason for consultation: HYPERPARAThyroidism and HYPERCELEMIA AND CONFUSION Has provider been notified: Yes 04/16/21 12:46 Consult to Dietitian Routine Reason for Consult:: TPN 04/19/21 Care Coordination Consult Routine Comment: Reason for Consult:: Hospice Referral DS: Admitting Diagnosis Discharge Date 04/19/2021 Admitting Diagnosis Chief Complaint: ALTERED MENTAL STATUS. DS: Discharge Diagnosis Discharge Diagnosis (1) Acute respiratory failure: Code(s): J96.00 - Acute respiratory failure, unspecified whether with hypoxia or hypercapnia Status: Acute Assessment and Plan: Acute Respiratory failure secondary to seizures and inability to protect airway Patient was extubated after a weaning trial yesterday and has been maintaining his saturation on nasal cannula He is on Rocephin and Flagyl to cover for aspiration pneumonia which will be continued CT chest showed emphysema and mostly atelectasis 04/15/2021 interval history: patient presented with acute mental status change and later developed seizure later was intubated to protect airways patient was in ICU remained clinically stable and was extubated transferred to medical floor, patient had a MRI it was normal patient had a EEG is abnormal, patient being treated with Keppra and has not had any seizure however patient remains somnolent unable to provide any review of symptom, patient is not able to participate and speech evaluation, discussed with a neurologist will order repeat MRI, patient's family would like patient to transfer to tertiary care, I called [facility], [facility] and [facility] there are no beds available currently due to COVID upsurge, letter I spoke with the neurologist from [facility] Dr. Wallace and discussed the treatment plan and the doctor agreed and with our plan and recommended to continue, and a main patient developed seizure status epileptics to call for transfer, will continue to monitor and further recommendation to follow. I spoke with the patient's son Syed and gave all the updates. 04/16/2021 interval history: patient remains clinically stable however his more somnolent and not very responsive today a repeat MRI as ordered, patient is not able to participate and modified swallow study and Dobbhoff remains coiled, will start patient on PPN for nutrition, patient is seen by neurologist suspect prognosis is poor. 04/17/2021 interval history: patient again today remains clinically stable however his more somnolent and not very responsive today, patient had a repeat MRI on 04/16 there is no acute changes, patient was not able to participate and modified swallow study on 04/16and Dobbhoff remains coiled patient pulled it out last night, started patient on PPN for nutrition, patient is seen by neurologist suspect prognosis is poor. spoke with the patient's son Syed and daughter Dana on 04/16/2021 and both of them came and saw their father, will continue to monitor and further recommendation to follow. 04/18/2021 interval history:I spoke with patient's son and daughter yesterday and patient is now DNR, la
--- NOTE | 2021-04-19 19:24 | PC.NURSE ---
Report called to Elle Zazueta RN going to Neuro Stepdown room 32147. Daughter at bedside notified of transfer and room number. [facility] called to transfer, accepting physician Dr Alvarez, Neurosurgeon. Packet prepared with all imaging and face sheet faxed to Intake, spoke with
--- NOTE | 2021-04-19 19:45 | PC.NURSE ---
Addendum to Rapid Response note on 04/11/2021 around 1500. Pt received one dose of Ativan 1 mg IVP for seizure, a second dose of Ativan 4 mg IVP for seizure, then another dose of Ativan 2 mg IVP for a total dose of 7 mg during the Rapid Response. Second dose of 4 mg was not reflected in the original RR note.
[2021-04-20 12:25] LABS: VDRL Quantitative CSF Nonreactive
[2021-04-22 17:49] LABS: Albumin, CSF 62.1 mg/dL (8.0-42.0); Albumin, Serum 3.4 g/dL (3.2-4.6); IgG Index, CSF 0.36 (<0.66); IgG, CSF 3.9 mg/dL (0.8-7.7); Immunoglobulin G, Serum 589 mg/dL (600-1540); Myelin Basic Protein, CSF <2.0 mcg/L (2.0-4.0); Synthesis Rate IgG, CSF -6.1 mg/24 h (-9.9-3.3)
[2021-04-24 03:52] LABS: Varicella Zoster Source CSF
== END 2021-04-19 19:25 | disposition short-term general hospital (02) | DRG 70 ==
LOC: ANHED 18:35 → ANH3MEDSUR 21:59 → ANH2MED 04-05 16:53 → ANHICU 04-20 15:54
PROVIDERS: Family Medicine; Hospitalist; Internal Medicine; Internal Medicine Nephrology; Nurse Practitioner; Physician Assistant; Admitting Provider Family Medicine; Emergency Provider Emergency Medicine; PCP Internal Medicine; Visit Provider Family Medicine
DX: G93.40 Encephalopathy, unspecified (principal); J96.01 Acute respiratory failure with hypoxia; I46.9 Cardiac arrest, cause unspecified; J69.0 Pneumonitis due to inhalation of food and vomit; E83.52 Hypercalcemia; R56.9 Unspecified convulsions; Z20.822 Contact with and (suspected) exposure to COVID-19; E03.9 Hypothyroidism, unspecified; M06.9 Rheumatoid arthritis, unspecified; R26.89 Other abnormalities of gait and mobility; R32 Unspecified urinary incontinence; F03.90 Unspecified dementia, unspecified severity, without behavioral disturbance, psychotic disturbance, mood disturbance, and anxiety; I10 Essential (primary) hypertension; K21.9 Gastro-esophageal reflux disease without esophagitis; E11.42 Type 2 diabetes mellitus with diabetic polyneuropathy; R03.0 Elevated blood-pressure reading, without diagnosis of hypertension; R00.0 Tachycardia, unspecified; E86.0 Dehydration; J43.9 Emphysema, unspecified; G47.33 Obstructive sleep apnea (adult) (pediatric); F41.1 Generalized anxiety disorder; E78.00 Pure hypercholesterolemia, unspecified; N28.89 Other specified disorders of kidney and ureter; E20.8 Other hypoparathyroidism; E66.9 Obesity, unspecified; Z68.32 Body mass index [BMI] 32.0-32.9, adult; Z87.891 Personal history of nicotine dependence; Z86.16 Personal history of COVID-19; Z85.828 Personal history of other malignant neoplasm of skin; E55.9 Vitamin D deficiency, unspecified
CPT/HCPCS: 31500; 36415; 36600; 43752; 62328; 70450; 70551; 71045; 71250; 72141; 74018; 74176; 74183; 80048; 80053; 80171; 80202; 80307; 81001; 82040; 82042; 82140; 82164; 82330; 82375; 82550; 82607; 82652; 82746; 82784; 82805; 82945; 82948; 83036; 83050; 83605; 83735; 83873; 83916; 84100; 84132; 84145; 84157; 84443; 84466; 84478; 84484; 84590; 85025; 85027; 85055; 85610; 85652; 85730; 86140; 86403; 86592; 86617; 86703; 86780; 87015; 87040; 87070; 87086; 87102; 87116; 87205; 87206; 87255; 87426; 87529; 87798; 88108; 89051; 93005; 94002; 94003; 95816; 96360; 96361; 96372; 97110; 97116; 97161; 97165; 97530; 97535; 99285; A9270; C1751; C9113; C9803; G0378; G0432; J0131; J0133; J0360; J0696; J1650; J1940; J1953; J2060; J2560; J2704; J3370; J3480; J7030; J7040; J7060; U0003; U0005

== ENCOUNTER 2022-08-08 19:00 | Emergency (ER) | payer MEDICARE, OTHER, SELFPAY ==
--- NOTE | ~2022-08-08 | XR_ITS ---
EXAMINATION: XR chest 1V portable DATE: 08/08/2022 21:21 INDICATION: Altered mental status TECHNIQUE: frontal view of the chest was obtained. COMPARISON: Chest radiograph dated 04/18/2021 FINDINGS: The lungs are clear with no focal airspace opacities, pulmonary edema, pleural effusion or pneumothor ax. The cardiomediastinal silhouette is normal. Visualized bones and soft tissues are unremarkable. IMPRESSION: 1. No acute cardiopulmonary disease. Reviewed, dictated and finalized at location A.
--- NOTE | ~2022-08-08 | CT_ITS ---
EXAMINATION: CT brain wo con DATE: 08/08/2022 19:55 INDICATION: Altered mental status TECHNIQUE: Computed tomography (CT) of the head was performed without intravenous contrast. Sagittal and coronal reconstructions were performed. The mA was adjusted according to patient size. Iterative reconstruction technique was employed. The dose-length product was 681.00 mGy-cm. COMPARISON: head CT dated 04/15/2021 and brain MR dated 04/16/2021 FINDINGS: Is a right frontal tamela hole with overlying small metallic plate which is new since the prior studies . There is a small region of encephalomalacia in the underlying right frontal lobe. No acute intracra nial hemorrhage, acute infarction or abnormal extra axial fluid collection. Significant interval campoverde ge in a now moderate increased prominence of the sulci and ventricles consistent with diffuse cerebra l volume loss and atypical degree of progression given the 16 months of elapsed time There has also b een interval progression in still moderate scattered white matter hypoattenuation consistent with chr onic small vessel ischemic disease. No mass/mass effect. The orbits, paranasal sinuses and mastoid ai r cells are normal. IMPRESSION: 1. No acute intracranial process. 2. Atypical significant interval progression in now moderate diffuse volume loss which was only mild on the study 16 months prior which is of indeterminate etiology. 3. Small region of encephalomalacia in the right frontal lobe underlying a small tamela hole suggests t his may be postoperative in etiology. Correlate with surgical history. 4. Progression of still moderate scattered white matter hypoattenuation consistent with chronic small vessel ischemic disease. Reviewed, dictated and finalized at location A. IMPRESSION: 1. No acute intracranial process. 2. Atypical significant interval progression in now moderate diffuse volume los s which was only mild on the study 16 months prior which is of indeterminate et iology. 3. Small region of encephalomalacia in the right frontal lobe underlying a smal l tamela hole suggests this may be postoperative in etiology. Correlate with surg ical history. 4. Progression of still moderate scattered white matter hypoattenuation consist ent with chronic small vessel ischemic disease.
[2022-08-08 19:01] VITALS: BP 143/98; PULSE 98; RESP 12; TEMP 37.2; O2SAT 98
--- NOTE | 2022-08-08 19:17 | PC.NURSE ---
This RN assumed care of patient.
[2022-08-08 19:31] VITALS: BP 116/81; PULSE 101; RESP 15
--- NOTE | 2022-08-08 19:34 | ECG_ITS ---
Measurements Intervals [place] Rate: 93 P: 50 TX: 186 QRS: 68 QRSD: 92 T: 66 QT: 357 QTc: 445 Interpretive Statements SINUS RHYTHM MINIMAL Q WAVES- INFERIOR LEADS BORDERLINE ECG COMPARED TO ECG 04/11/2021 16:53:29 SINUS RHYTHM NOW PRESENT Electronically Signed On 08-08-2022 20:34:52 CDT by Aroldo oDwling D.O.
[2022-08-08 19:46] VITALS: BP 139/92
[2022-08-08 20:00] VITALS: PULSE 99
[2022-08-08] MEDS: SODIUM CHLORIDE 0.9% IV 1,000 ML 999 ML IV CONT (20:04)
[2022-08-08 20:16] LABS: Basophils Percent Auto 0.6 % (0.2-1.2); Eosinophils Absolute Auto 0.1 K/mm3 (0-0.3); Eosinophils Percent Auto 1.3 % (0-4.4); Hematocrit 36.7 % (42.0-52.0); Hemoglobin 11.5 g/dL (14.0-18.0); Immature Granulocyte Absolute 0.06 K/mm3 (0.00-0.031); Immature Granulocyte Percent A 0.9 % (0-0.5); Lymphocytes Absolute Auto 1.31 K/mm3 (0.9-3.2); Lymphocytes Percent Auto 20.5 % (18.3-44.2); Mean Corpuscular HGB Conc 31.3 g/dl (32-36); Mean Corpuscular Hemoglobin 27.3 pg (26-34); Mean Corpuscular Volume 87.2 fl (80-100); Mean Platelet Volume 10.2 fl (7.4-10.4); Monocytes Absolute Auto 0.8 K/mm3 (0.1-0.6); Monocytes Percent Auto 11.9 % (2.6-8.5); Neutrophils Absolute Auto 4.1 K/mm3 (1.3-6.7); Neutrophils Percent Auto 64.8 % (45.5-73.1); Platelet Count Result 246 k/mm3 (150-375); Red Blood Count 4.21 M/mm3 (4.6-6.20); Red Cell Distribution Width 16.8 % (11.5-14.5); White Blood Count 6.4 K/mm3 (4.5-10.0)
[2022-08-08 20:29] LABS: Anion Gap 4 mmol/L (8-16); Blood Urea Nitrogen 25 mg/dL (9-20); Carbon Dioxide 27 mmol/L (22-30); Chloride 109 mmol/L (98-107); Estimated CRCL calculation 60 ml/min; Estimated Glomerular Filt Rate > 60; Glucose 150 mg/dL (65-110); Potassium 4.2 mmol/L (3.4-5.0); Sodium 140 mmol/L (137-145)
--- NOTE | 2022-08-08 20:42 | PC.NURSE ---
Pt family arrived, son and daughter and informed this RN that the pt has had an episode like this on the June the . The patient was at [facility]. At this facility they had given him an opiod pain medication. He was transferred from [facility] to [place] where he has a few doctors that monitor his neurologic, endocrine, and hematologic concerns stated by family. [facility] prescribed him a new medication, tramadol on 08/03. Pt switched care facilities to [facility] where he was when EMS arrived. Pt is AO x 4 for this RN, no slurred speech, and able to comprehend commands.
[2022-08-08 21:39] LABS: Appearance Urine Clear (Clear); Bacteria Urine None Seen /hpf; Bilirubin Urine Negative (Negative); Blood Urine Negative (Negative); Color Urine Yellow (Yellow); Glucose Urine UA Negative (Negative); Ketones Urine Negative (Negative); Leukocyte Esterase Ur Negative LEU/UL (Negative); Nitrate Urine Negative (Negative); Non Pathogenic Casts 0-2; Protein Urine 1+ mg/dL (Negative); RBC Urine 0-2 /hpf (0-2); Specific Grav Ur 1.029 (1.001-1.035); Squamous Epithelial Cell Urine None seen /hpf (Few); Urobilinogen Urine 0.2 mg/dL (<2.0); WBC Urine 0-5 /hpf
[2022-08-08 21:43] LABS: Add Urine Microscopic? YES
--- NOTE | 2022-08-08 22:02 | ED.GENADULT ---
HPI - General Adult General Chief complaint: Altered Mental Status Stated complaint: AMS Time Seen by Provider: 08/08/22 19:10 History of Present Illness HPI narrative: this 71-year-old male sent from the [facility] for altered mental status. per the [facility] they found the patient unresponsive. They then called EMS. When EMS arrived the patient was A&O x4. When I asked the patient what happened he told me that he had been having trouble sleeping and so he was pretending to be asleep when they tried to wake him up. He is A&O x4. He has no complaints. Related Data Home Medications Medication Instructions Recorded Confirmed folic acid 1 mg tablet 1 mg PO DAILY 03/14/19 05/12/21 duloxetine 60 mg capsule,delayed 60 mg PO DAILY 04/05/21 05/12/21 release famotidine 20 mg tablet 40 mg PO HS 04/05/21 05/12/21 levothyroxine 200 mcg tablet 175 mcg PO DAILY 04/12/21 05/12/21 lacosamide 200 mg PO BID 05/12/21 05/12/21 levetiracetam 750 mg tablet 1,500 mg PO BID 05/12/21 05/12/21 metformin 500 mg tablet,extended 500 mg PO DAILY 05/12/21 05/12/21 release 24 hr ramelteon 8 mg tablet 8 mg PO HS 05/12/21 05/12/21 Allergies Allergy/AdvReac Type Severity Reaction Status Date / Time rubber, unspecified Allergy Severe Rash Verified 04/05/21 18:04 [facility] Past Medical History Medical History Anxiety Balanitis COVID-19 vaccine series completed Elevated blood pressure reading Elevated LFTs Encephalopathy Essential hypertension Establishing care with new doctor, encounter for YEE (generalized anxiety disorder) Gastro-esophageal reflux disease without esophagitis Gastroesophageal reflux disease History of tobacco use Hypercalcemia Hypercalcemia Hypersomnia Hypothyroidism, unspecified Obesity (BMI 30-39.9) LUIS (obstructive sleep apnea) Personal history of COVID-19 Pharyngitis Pure hypercholesterolemia Rheumatoid arthritis, unspecified Screening for AAA (abdominal aortic aneurysm) Secondary hyperparathyroidism Secondary hypoparathyroidism Seizure Serum calcium elevated Tachycardia Type 2 diabetes mellitus without complication, without long-term current use of insulin Vaccine counseling Vitamin D deficiency, unspecified Surgical History Surgical History S/P Mohs surgery for basal cell carcinoma Family History Family History Father Family history of malignant neoplasm Cancer Sibling Family history of malignant neoplasm Patient's sister is in good health Cancer Mother Patient's mother is in good health Thyroid disorder Other Leukemia Social History Social History Social History: requires caregivers assistance. Family members are deciding on discharge plans either back to his home with caregivers or assisted living or prison facility Smoking packs per day: 1 Smoking cigarettes per day: 20.0 Years smoked: 47 Smoking pack-years: 47.00 Smoking status: Former smoker Second hand tobacco smoke exposure: No Alcohol intake: never Alcohol use details: Social Substance use: never Substance use type: does not use Living arrangements: with family Occupation/Education: retired Gender identity (if verbalized by the patient): Male Sexual Orientation (if Verbalized by the Patient): Straight or Heterosexual Spiritual care concerns: No Exam Narrative: APPEARANCE: No apparent distress. Head: atraumatic. EYES: EOMI, NOSE: Atraumatic NECK: Trachea midline RESPIRATORY: No increased rate of breathing Clear to auscultation CARDIOVASCULAR: RRR, no peripheral edema ABDOMINAL: Non-distended MUSCULOSKELETAl: patient is in a right arm brace/sling NEURO: Alert. Moving 4/4 extremities SKIN:: Warm, dry. Normal color PSYCHIATRIC: Normal affect Cou
[2022-08-08 22:15] VITALS: PULSE 88; RESP 19
== END 2022-08-08 22:50 ==
PROVIDERS: Emergency Provider Emergency Medicine; PCP Internal Medicine
DX: R41.82 Altered mental status, unspecified (principal); F41.9 Anxiety disorder, unspecified; I10 Essential (primary) hypertension; K21.9 Gastro-esophageal reflux disease without esophagitis; E03.9 Hypothyroidism, unspecified; G40.909 Epilepsy, unspecified, not intractable, without status epilepticus; E11.9 Type 2 diabetes mellitus without complications; Z79.84 Long term (current) use of oral hypoglycemic drugs
CPT/HCPCS: 36415; 70450; 71045; 80048; 81001; 85025; 93005; 96360; 99284; J7030

== ENCOUNTER 2022-08-31 02:47 | Emergency (ER) | payer MEDICARE, OTHER, SELFPAY ==
--- NOTE | ~2022-08-31 | CT_ITS ---
CT head without contrast Indication: Status post fall COMPARISON: 08/08/2022 Technique: Serial scans were obtained through the brain without the administration of contrast. Dose reduction technique was used on this scan by utilizing automated exposure control and iterative recon struction technique. The dose-length product (DLP) was 681.00 mGy-cm. Findings: There is no evidence of intracranial hemorrhage, mass lesion, or acute infarct. The ventri cles and subarachnoid spaces are dilated, consistent with mild atrophy. Low attenuation regions are seen within the periventricular white matter bilaterally, likely representing changes from chronic mi crovascular ischemic disease. There is no evidence of edema, mass effect or midline shift. Stable ri ght frontal tamela hole. The visualized paranasal sinuses and mastoid air cells are clear. Impression: No intracranial hemorrhage, mass, or acute infarct. Atrophy and chronic white matter changes, as above. Reviewed, dictated and finalized at location . Impression: No intracranial hemorrhage, mass, or acute infarct. Atrophy and chronic white matter changes, as above.
--- NOTE | ~2022-08-31 | CT_ITS ---
Noncontrast CT scan of the cervical spine Technique: Multiple contiguous axial [address] images of the cervical spine were obtained and rec onstructed in 2D sagittal and coronal planes on the acquisition scanner. Dose reduction technique was used on this scan by utilizing automated exposure control, adjustment of the mA and/or kV according to patient size. Clinical History: Pain Findings: No fractures or dislocations. There is mild to moderate degenerative disc narrowing at C4- C5, C5-C6, and C6-C7, with associated uncovertebral degenerative changes at these levels. No preverte bral soft tissue swelling. Impression: No fracture or subluxation of the cervical spine. Reviewed, dictated and finalized at location . Impression: No fracture or subluxation of the cervical spine.
[2022-08-31 02:48] VITALS: BP 151/88; PULSE 63; RESP 14; TEMP 36.2; O2SAT 99
--- NOTE | 2022-08-31 03:02 | ED.GENADULT ---
HPI - General Adult General Chief complaint: Fall Stated complaint: FALL, HIT HEAD History of Present Illness HPI narrative: A pleasant 71-year-old male presenting from the care home after a fall. Patient says he was laying in bed and was trying to put in an [employer] DVD into his DVD player when he lost his balance and slid forward out of bed and struck his forehead on the ground. He did not lose consciousness. He is on Eliquis for atrial fibrillation. He denies any other injuries. He was able to get up after the incident without difficulty. He denies any other physical complaints. Related Data Home Medications Medication Instructions Recorded Confirmed folic acid 1 mg tablet 1 mg PO DAILY 03/14/19 05/12/21 duloxetine 60 mg capsule,delayed 60 mg PO DAILY 04/05/21 05/12/21 release famotidine 20 mg tablet 40 mg PO HS 04/05/21 05/12/21 levothyroxine 200 mcg tablet 175 mcg PO DAILY 04/12/21 05/12/21 lacosamide 200 mg PO BID 05/12/21 05/12/21 levetiracetam 750 mg tablet 1,500 mg PO BID 05/12/21 05/12/21 metformin 500 mg tablet,extended 500 mg PO DAILY 05/12/21 05/12/21 release 24 hr ramelteon 8 mg tablet 8 mg PO HS 05/12/21 05/12/21 Allergies Allergy/AdvReac Type Severity Reaction Status Date / Time rubber, unspecified Allergy Severe Rash Verified 04/05/21 18:04 [facility] Past Medical History Medical History Anxiety Balanitis COVID-19 vaccine series completed Elevated blood pressure reading Elevated LFTs Encephalopathy Essential hypertension Establishing care with new doctor, encounter for YEE (generalized anxiety disorder) Gastro-esophageal reflux disease without esophagitis Gastroesophageal reflux disease History of tobacco use Hypercalcemia Hypercalcemia Hypersomnia Hypothyroidism, unspecified Obesity (BMI 30-39.9) LUIS (obstructive sleep apnea) Personal history of COVID-19 Pharyngitis Pure hypercholesterolemia Rheumatoid arthritis, unspecified Screening for AAA (abdominal aortic aneurysm) Secondary hyperparathyroidism Secondary hypoparathyroidism Seizure Serum calcium elevated Tachycardia Type 2 diabetes mellitus without complication, without long-term current use of insulin Vaccine counseling Vitamin D deficiency, unspecified Surgical History Surgical History S/P Mohs surgery for basal cell carcinoma Family History Family History Father Family history of malignant neoplasm Cancer Sibling Family history of malignant neoplasm Patient's sister is in good health Cancer Mother Patient's mother is in good health Thyroid disorder Other Leukemia Social History Social History Social History: requires caregivers assistance. Family members are deciding on discharge plans either back to his home with caregivers or assisted living or prison facility Smoking packs per day: 1 Smoking cigarettes per day: 20.0 Years smoked: 47 Smoking pack-years: 47.00 Smoking status: Former smoker Second hand tobacco smoke exposure: No Alcohol intake: never Alcohol use details: Social Substance use: never Substance use type: does not use Living arrangements: with family Occupation/Education: retired Gender identity (if verbalized by the patient): Male Sexual Orientation (if Verbalized by the Patient): Straight or Heterosexual Spiritual care concerns: No Exam Narrative: APPEARANCE: No apparent distress. patient is A&O x4 Head: small mild area of erythema on the forehead EYES: EOMI, NOSE: Atraumatic NECK: Trachea midline, no midline cervical tenderness RESPIRATORY: No increased rate of breathing CARDIOVASCULAR: RRR, ABDOMINAL: Non-distended MUSCULOSKELETAl: No obvious deformities NEURO: Alert. Cranial nerves 2-12 gross
[2022-08-31 04:56] VITALS: BP 126/87; PULSE 67; RESP 18; O2SAT 100
[2022-08-31 06:17] VITALS: BP 140/89; PULSE 68; RESP 18; O2SAT 99
== END 2022-08-31 06:34 ==
LOC: ANHED 03:21
PROVIDERS: Emergency Provider Emergency Medicine
DX: S09.90XA Unspecified injury of head, initial encounter (principal); I48.91 Unspecified atrial fibrillation; I10 Essential (primary) hypertension; G40.909 Epilepsy, unspecified, not intractable, without status epilepticus; E11.9 Type 2 diabetes mellitus without complications; E78.00 Pure hypercholesterolemia, unspecified; E03.9 Hypothyroidism, unspecified; E55.9 Vitamin D deficiency, unspecified; K21.9 Gastro-esophageal reflux disease without esophagitis; M06.9 Rheumatoid arthritis, unspecified; G47.33 Obstructive sleep apnea (adult) (pediatric); E66.9 Obesity, unspecified; Z68.26 Body mass index [BMI] 26.0-26.9, adult; Z85.828 Personal history of other malignant neoplasm of skin; Z87.891 Personal history of nicotine dependence; Z79.01 Long term (current) use of anticoagulants; Z79.82 Long term (current) use of aspirin; W06.XXXA Fall from bed, initial encounter
CPT/HCPCS: 70450; 72125; 99284

== ENCOUNTER 2022-09-29 00:36 | Emergency (ER) | payer MEDICARE, OTHER, SELFPAY ==
--- NOTE | ~2022-09-29 | CT_ITS ---
CT head without contrast Indication: Status post fall COMPARISON: 08/31/2022 Technique: Serial scans were obtained through the brain without the administration of contrast. Dose reduction technique was used on this scan by utilizing automated exposure control and iterative recon struction technique. The dose-length product (DLP) was 681.00 mGy-cm. Findings: There is no evidence of intracranial hemorrhage, mass lesion, or acute infarct. The ventri cles and subarachnoid spaces are dilated, consistent with moderate atrophy. Low attenuation regions are seen within the periventricular white matter bilaterally, likely representing changes from chroni c microvascular ischemic disease. There is no evidence of edema, mass effect or midline shift. Right frontal tamela hole is unchanged. The visualized paranasal sinuses and mastoid air cells are clear. Impression: No intracranial hemorrhage, mass, or acute infarct. Atrophy and chronic white matter changes, as above. Reviewed, dictated and finalized at [facility]. Impression: No intracranial hemorrhage, mass, or acute infarct. Atrophy and chronic white matter changes, as above.
[2022-09-29 00:39] VITALS: BP 156/86; PULSE 60; RESP 22; TEMP 36.4; O2SAT 100
[2022-09-29 00:46] VITALS: BP 173/87; PULSE 60; RESP 18; O2SAT 100
--- NOTE | 2022-09-29 02:38 | ED.GENADULT ---
HPI - General Adult General Chief complaint: Fall Stated complaint: glf Time Seen by Provider: 09/29/22 00:43 History of Present Illness HPI narrative: This is a 71-year-old male presenting to the ED after a ground level fall. Patient says that he slid out of his wheelchair onto the carpet. He has a small amount of periorbital ecchymosis. Patient says he not lose consciousness. He has been ambulatory since then. He has no physical complaints at this time is at his baseline mental status. His daughter is at bedside and states he is at his baseline mental status. Related Data Home Medications Medication Instructions Recorded Confirmed folic acid 1 mg tablet 1 mg PO DAILY 03/14/19 05/12/21 duloxetine 60 mg capsule,delayed 60 mg PO DAILY 04/05/21 05/12/21 release famotidine 20 mg tablet 40 mg PO HS 04/05/21 05/12/21 levothyroxine 200 mcg tablet 175 mcg PO DAILY 04/12/21 05/12/21 lacosamide 200 mg PO BID 05/12/21 05/12/21 levetiracetam 750 mg tablet 1,500 mg PO BID 05/12/21 05/12/21 metformin 500 mg tablet,extended 500 mg PO DAILY 05/12/21 05/12/21 release 24 hr ramelteon 8 mg tablet 8 mg PO HS 05/12/21 05/12/21 Allergies Allergy/AdvReac Type Severity Reaction Status Date / Time rubber, unspecified Allergy Severe Rash Verified 04/05/21 18:04 oxycodone Allergy Unknown Verified 09/29/22 00:49 sulfadiazine Allergy Unknown Verified 09/29/22 00:49 [facility] Past Medical History Medical History Anxiety Balanitis COVID-19 vaccine series completed Elevated blood pressure reading Elevated LFTs Encephalopathy Essential hypertension Establishing care with new doctor, encounter for YEE (generalized anxiety disorder) Gastro-esophageal reflux disease without esophagitis Gastroesophageal reflux disease History of tobacco use Hypercalcemia Hypercalcemia Hypersomnia Hypothyroidism, unspecified Obesity (BMI 30-39.9) LUIS (obstructive sleep apnea) Personal history of COVID-19 Pharyngitis Pure hypercholesterolemia Rheumatoid arthritis, unspecified Screening for AAA (abdominal aortic aneurysm) Secondary hyperparathyroidism Secondary hypoparathyroidism Seizure Serum calcium elevated Tachycardia Type 2 diabetes mellitus without complication, without long-term current use of insulin Vaccine counseling Vitamin D deficiency, unspecified Surgical History Surgical History S/P Mohs surgery for basal cell carcinoma Family History Family History Father Family history of malignant neoplasm Cancer Sibling Family history of malignant neoplasm Patient's sister is in good health Cancer Mother Patient's mother is in good health Thyroid disorder Other Leukemia Social History Social History Social History: requires caregivers assistance. Family members are deciding on discharge plans either back to his home with caregivers or assisted living or long-term facility Smoking packs per day: 1 Smoking cigarettes per day: 20.0 Years smoked: 47 Smoking pack-years: 47.00 Smoking status: Former smoker Second hand tobacco smoke exposure: No Alcohol intake: never Alcohol use details: Social Substance use: never Substance use type: does not use Living arrangements: with family Occupation/Education: retired Gender identity (if verbalized by the patient): Male Sexual Orientation (if Verbalized by the Patient): Straight or Heterosexual Spiritual care concerns: No Exam Narrative: APPEARANCE: No apparent distress. Head: periorbital ecchymosis on the left EYES: EOMI, no numbness below the left eye NOSE: Atraumatic NECK: Trachea midline RESPIRATORY: No increased rate of breathing clear auscultation CARDIOVASCULAR: RRR, no peripheral edema ABDOMINAL: Non-distended, s
[2022-09-29 03:30] VITALS: BP 173/97; PULSE 65; RESP 18; O2SAT 98
== END 2022-09-29 05:25 ==
PROVIDERS: Emergency Provider Emergency Medicine; PCP Nurse Practitioner Family
DX: S00.212A Abrasion of left eyelid and periocular area, initial encounter (principal); F03.90 Unspecified dementia, unspecified severity, without behavioral disturbance, psychotic disturbance, mood disturbance, and anxiety; E11.9 Type 2 diabetes mellitus without complications; K21.9 Gastro-esophageal reflux disease without esophagitis; E03.9 Hypothyroidism, unspecified; G47.33 Obstructive sleep apnea (adult) (pediatric); M06.9 Rheumatoid arthritis, unspecified; E55.9 Vitamin D deficiency, unspecified; Z87.891 Personal history of nicotine dependence; Z86.718 Personal history of other venous thrombosis and embolism; Z79.01 Long term (current) use of anticoagulants; Z79.84 Long term (current) use of oral hypoglycemic drugs; Z79.82 Long term (current) use of aspirin; W05.0XXA Fall from non-moving wheelchair, initial encounter
CPT/HCPCS: 70450; 99284

== ENCOUNTER 2022-12-14 18:09 | Observation (INO) | payer MEDICARE, OTHER, SELFPAY ==
[2022-12-14] VITALS (16 sets, daily range): BP systolic 114–133; BP diastolic 67–96; PULSE 97–114; RESP 16–26; TEMP 36.4–37.2; O2SAT 94–100; BMI 31.0
--- NOTE | ~2022-12-14 | NM_ITS ---
EXAMINATION: NM honey stress w perfusion DATE: 12/15/2022 14:40 INDICATION: Chest pain TECHNIQUE: Rest images were obtained following intravenous administration of 10.0 mCi Tc99m tetrofosm in (Myoview). The patient was infused intravenously with Lexiscan (Regadenoson). Then, 32.5 mCi Tc99m tetrofosmin (Myoview) was administered intravenously, and stress images were obtained. Data was gretel nstructed into short axis and horizontal and vertical long axis SPECT images. Gated SPECT images were also obtained. COMPARISON: None. FINDINGS: Mild reversible perfusion defect involving the mid inferolateral and basilar inferolateral segments consistent with ischemia. There is normal left ventricular chamber size, wall motion and eje ction fraction. Left ventricular ejection fraction measures 62%. IMPRESSION: 1. Region of mild reversible decreased perfusion at the mid inferolateral and basilar inferolateral s egments consistent with ischemia. 2. Left ventricular ejection fraction measuring 62%. Reviewed, dictated and finalized at location A. IMPRESSION: 1. Region of mild reversible decreased perfusion at the mid inferolateral and b asilar inferolateral segments consistent with ischemia. 2. Left ventricular ejection fraction measuring 62%.
--- NOTE | ~2022-12-14 | XR_ITS ---
XR chest 2V DATE: 12/14/2022 18:33 INDICATION: Chest pain, shortness of breath TECHNIQUE: 2 views COMPARISON: 08/08/2022 portable AP chest at 2118 hours FINDINGS: Heart size is within normal range. Is aortic calcification and unfolding. No hilar or media stinal enlargement. Minimal infiltrate or atelectasis at the left lung base, left lower lobe. The lungs otherwise appear clear. No pleural effusion or pulmonary vascular congestion or pneumothorax. IMPRESSION: Minimal infiltrate or atelectasis at the left lung base, left lower lobe Aortic atherosclerosis Reviewed, dictated and finalized at location A.
--- NOTE | 2022-12-14 18:13 | ECG_ITS ---
Measurements Intervals [place] Rate: 112 P: 1 NV: 140 QRS: 21 QRSD: 87 T: 16 QT: 317 QTc: 433 Interpretive Statements SINUS TACHYCARDIA DELAYED PRECORDIAL R/S TRANSITION MINIMAL Q WAVES- INFERIOR LEADS ABNORMAL ECG COMPARED TO ECG 08/08/2022 20:25:00 SINUS TACHYCARDIA NOW PRESENT Electronically Signed On 12-15-2022 6:34:21 CDT by Aroldo Dowling D.O.
--- NOTE | 2022-12-14 18:13 | ED.CHESTPAIN ---
HPI - Chest Pain General Chief Complaint: Chest Pain Stated Complaint: cp Time Seen by Provider: 12/14/22 18:13 History of Present Illness HPI narrative: Patient is a 71-year-old male with history of cerebral vasculitis, diabetes, hypertension, hyperlipidemia here today with chest pain. History obtained by both the patient and daughter. Patient was eating dinner and stated that he had had some acid reflux. he then started complaining of worsening chest pain, notes that it was located on the left side and seemed to radiate into his left arm. Denies any associated diaphoresis, nausea, lightheadedness. He states that after receiving medication from the ambulance, nitroglycerin, he now currently has no pain. He notes he feels at his baseline at this time. His last cardiac workup he notes was about 15 years ago when he believes he had a normal stress test. No coronary artery stents in place. He notes he is feeling well earlier today. No cough, congestion, fever, chills. Related Data Home Medications Medication Instructions Recorded Confirmed folic acid 1 mg tablet 1 mg PO DAILY 03/14/19 05/12/21 duloxetine 60 mg capsule,delayed 60 mg PO DAILY 04/05/21 05/12/21 release famotidine 20 mg tablet 40 mg PO HS 04/05/21 05/12/21 levothyroxine 200 mcg tablet 175 mcg PO DAILY 04/12/21 05/12/21 lacosamide 200 mg PO BID 05/12/21 05/12/21 levetiracetam 750 mg tablet 1,500 mg PO BID 05/12/21 05/12/21 metformin 500 mg tablet,extended 500 mg PO DAILY 05/12/21 05/12/21 release 24 hr ramelteon 8 mg tablet 8 mg PO HS 05/12/21 05/12/21 Allergies Allergy/AdvReac Type Severity Reaction Status Date / Time rubber, unspecified Allergy Severe Rash Verified 12/14/22 18:16 oxycodone Allergy Unknown Verified 12/14/22 18:16 sulfadiazine Allergy Unknown Verified 12/14/22 18:16 Review of Systems Review of Systems: CONSTITUTIONAL: Denies fever, chills, or sweats. EYES: Denies visual changes, redness, or discharge. ENT: Denies rhinorrhea, congestion, sore throat, or otalgia. CARDIOVASCULAR: chest pain, denies palpitations, or edema. RESPIRATORY: Denies cough or dyspnea. GASTROINTESTINAL: Denies abdominal pain, nausea, vomiting, or diarrhea. GENITOURINARY: Denies dysuria or hematuria. SKIN: Denies rash or itching. MUSCULOSKELETAL: Denies back pain, joint pain, or myalgia. NEUROLOGIC: Denies headache, numbness, or weakness. [facility] Past Medical History Medical History Anxiety Balanitis COVID-19 vaccine series completed Elevated blood pressure reading Elevated LFTs Encephalopathy Essential hypertension Establishing care with new doctor, encounter for YEE (generalized anxiety disorder) Gastro-esophageal reflux disease without esophagitis Gastroesophageal reflux disease History of tobacco use Hypercalcemia Hypercalcemia Hypersomnia Hypothyroidism, unspecified Obesity (BMI 30-39.9) LUIS (obstructive sleep apnea) Personal history of COVID-19 Pharyngitis Pure hypercholesterolemia Rheumatoid arthritis, unspecified Screening for AAA (abdominal aortic aneurysm) Secondary hyperparathyroidism Secondary hypoparathyroidism Seizure Serum calcium elevated Tachycardia Type 2 diabetes mellitus without complication, without long-term current use of insulin Vaccine counseling Vitamin D deficiency, unspecified Surgical History Surgical History S/P Mohs surgery for basal cell carcinoma Family History Family History Father Family history of malignant neoplasm Cancer Sibling Family history of malignant neoplasm Patient's sister is in good health Cancer Mother Patient's mother is in good health Thyroid disorder Other Leukemia Social History Social History Social History: requires caregivers assistance. Family
[2022-12-14 19:07] LABS: Basophils Percent Auto 0.6 % (0.2-1.2); Eosinophils Percent Auto 0.4 % (0-4.4); Hematocrit 40.9 % (42.0-52.0); Hemoglobin 13.5 g/dL (14.0-18.0); Immature Granulocyte Absolute 0.24 K/mm3 (0.00-0.031); Immature Granulocyte Percent A 3.4 % (0-0.5); Lymphocytes Absolute Auto 0.74 K/mm3 (0.9-3.2); Lymphocytes Percent Auto 10.5 % (18.3-44.2); Mean Corpuscular Hemoglobin 29.9 pg (26-34); Mean Corpuscular Volume 90.5 fl (80-100); Mean Platelet Volume 10.2 fl (7.4-10.4); Monocytes Percent Auto 13.9 % (2.6-8.5); Neutrophils Percent Auto 71.2 % (45.5-73.1); Platelet Count Result 178 k/mm3 (150-375); Red Blood Count 4.52 M/mm3 (4.6-6.20); Red Cell Distribution Width 19.9 % (11.5-14.5); White Blood Count 7.1 K/mm3 (4.5-10.0)
--- NOTE | 2022-12-14 19:10 | PC.NURSE ---
Assumed care of pt. report received. Pt resting quietly per cart with daughter at bedside. Denies any cp or associated symptoms at this time. Pt is axox4, but daughter reports is forgetful at times. Daughter assisted pt with repositioning in bed. Awaiting repeat trop at 2114.
[2022-12-14 19:17] LABS: Alanine Aminotransferase 24 U/L (6-50); Albumin Level 4.1 g/dL (3.5-5.1); Alkaline Phosphatase 111 U/L (38-126); Anion Gap 8 mmol/L (8-16); Aspartate Amino Transferase 27 U/L (17-59); Bilirubin,Total 1.2 mg/dL (0.2-1.3); Blood Urea Nitrogen 20 mg/dL (9-20); Calcium 10.5 mg/dL (8.4-10.2); Carbon Dioxide 25 mmol/L (22-30); Chloride 102 mmol/L (98-107); Estimated CRCL calculation 71 ml/min; Estimated Glomerular Filt Rate > 60; Glucose 147 mg/dL (65-110); Lipase 129 U/L (23-300); Potassium 4.3 mmol/L (3.4-5.0); Sodium 135 mmol/L (137-145)
[2022-12-14 19:25] LABS: INR 1.2; Prothrombin Time 15.7 Seconds (11.1-14.7)
[2022-12-14 19:28] LABS: Troponin I < 0.012 ng/mL (0.000-0.034)
--- NOTE | 2022-12-14 21:58 | PM.IMHP ---
H&P: HPI History of Present Illness Date/Time: 12/14/22 21:58 Chief Complaint: Patient was brought to the ER for evaluation for his chest pain Narrative: He is a very pleasant 71 years old white gentleman with multiple chronic medical issues who lives in an assisted living facility. He was eating dinner today and started complaining of chest pain located in the anterior chest radiating down the left arm to his left wrist, no associated sweating or palpitations. He does have a history of heartburn but this pain was different. EMS was called and patient was brought to the ED for evaluation. He received nitroglycerin enroute and his chest pain resolved. He was worked up in the ED. His EKG and 1st set of troponin were negative. His last cardiac workup was 7 years ago when he had a stress test done. He is being placed under observation overnight for tele monitoring, following up on cardiac enzymes, cardiology evaluation and workup. Review of Systems Review of Systems: he denies any nausea vomiting, dizziness, lightheadedness or blurred vision. All systems reviewed & are unremarkable except as noted in HPI and below PMFSH Past Medical History Medical History Anxiety Balanitis COVID-19 vaccine series completed Elevated blood pressure reading Elevated LFTs Encephalopathy Essential hypertension Establishing care with new doctor, encounter for YEE (generalized anxiety disorder) Gastro-esophageal reflux disease without esophagitis Gastroesophageal reflux disease History of tobacco use Hypercalcemia Hypercalcemia Hypersomnia Hypothyroidism, unspecified Obesity (BMI 30-39.9) LUIS (obstructive sleep apnea) Personal history of COVID-19 Pharyngitis Pure hypercholesterolemia Rheumatoid arthritis, unspecified Screening for AAA (abdominal aortic aneurysm) Secondary hyperparathyroidism Secondary hypoparathyroidism Seizure Serum calcium elevated Tachycardia Type 2 diabetes mellitus without complication, without long-term current use of insulin Vaccine counseling Vitamin D deficiency, unspecified Surgical History Surgical History S/P Mohs surgery for basal cell carcinoma Family History Family History Father Family history of malignant neoplasm Cancer Sibling Family history of malignant neoplasm Patient's sister is in good health Cancer Mother Patient's mother is in good health Thyroid disorder Other Leukemia Social History Social History Social History: requires caregivers assistance. Family members are deciding on discharge plans either back to his home with caregivers or assisted living or group home facility Smoking packs per day: 1 Smoking cigarettes per day: 20.0 Years smoked: 47 Smoking pack-years: 47.00 Smoking status: Former smoker Second hand tobacco smoke exposure: No Alcohol intake: never Alcohol use details: Social Substance use: never Substance use type: does not use Living arrangements: with family Occupation/Education: retired Gender identity (if verbalized by the patient): Male Sexual Orientation (if Verbalized by the Patient): Straight or Heterosexual Spiritual care concerns: No Meds Home Medications and Allergies Home Medications Medication Instructions Recorded Confirmed Type folic acid 1 mg tablet 1 mg PO DAILY 03/14/19 05/12/21 History blood sugar diagnostic (OneTouch #100 ea 10/07/19 04/05/21 Rx Verio test strips) rosuvastatin 20 mg tablet (Crestor) 20 mg PO DAILY #90 tabs 03/15/21 05/12/21 Rx duloxetine 60 mg capsule,delayed 60 mg PO DAILY 04/05/21 05/12/21 History release famotidine 20 mg tablet 40 mg PO HS 04/05/21 05/12/21 History levothyroxine 200 mcg tablet 175 mcg PO DAILY 04/12/21 05/12/21 History lacosamide 200 mg
[2022-12-14 22:24] LABS: Troponin I < 0.012 ng/mL (0.000-0.034)
--- NOTE | 2022-12-14 23:17 | ADMGEN ---
This patient, Ras Moreno, was admitted to IMU Room 209-01 at 2245. Patient/family oriented to hospital policies and general routines including ID bracelet, bed and alarms, visiting hours, pain management, procedures, bathroom and other care routines, personal items, smoking policy, room service/diet, and visiting hours. Information on how to activate the Rapid Response Team has been discussed. Patient/Family are encouraged to report perceived risks to care and to ask questions if they do not understand what they are told or what they should do.
[2022-12-15] VITALS (12 sets, daily range): BP systolic 113–145; BP diastolic 68–91; PULSE 94–126; RESP 12–24; TEMP 36.4–36.8; O2SAT 94–99
--- NOTE | 2022-12-15 | ECHO_ITS ---
Patient Info Name: Ras Moreno Age: 71 years : 1950 Gender: Male Ht: 71 in Wt: 222 lbs BSA: 2.27 m2 HR: 101 bpm BP: 145 / 68 mmHg Heart Rhythm: Sinus Rhythm Technical Quality: Good Exam Date: 12/15/2022 11:38 AM Exam Location: [facility] Patient Status: Inpatient Admit Date: 12/14/2022 Staff Ordering Physician: Nilesh Gleason MD Air Operations Manager: Vanessa Green RDCS Attending Provider: Nilesh Gleason MD Exam Type: CA echo doppler color flow Study Info Indications - CHEST PAIN Complete two-dimensional, color flow and Doppler transthoracic echocardiogram is performed. Summary 1. Complete two-dimensional, color flow and Doppler transthoracic echocardiogram is performed. 2. Left ventricular chamber dimension is normal. 3. Left ventricular systolic function is hyperdynamic, estimated at >70%. 4. There is mildly increased left ventricular wall thickness. 5. The left ventricular diastolic function is grade I diastolic dysfunction. 6. Right ventricular systolic function is normal. 7. No significant valvular disease. Left Ventricle Left ventricular chamber dimension is normal. Left ventricular systolic function is hyperdynamic, estimated at >70%. There is mildly increased left ventricular wall thickness. The left ventricular diastolic function is grade I diastolic dysfunction. Right Ventricle Right ventricular chamber dimension is normal. Right ventricular systolic function is normal. Left Atria Left atrial chamber dimension is normal. Right Atria Right atrial chamber dimension is normal. Atrial Septum Intact interatrial septum visualized by color flow imaging. Aortic Valve The aortic valve is not well visualized. There is no aortic valve stenosis. There is no aortic valve regurgitation. Pulmonic Valve The pulmonic valve is not well visualized. Mitral Valve There is trace mitral valve regurgitation. Tricuspid Valve There is trace tricuspid valve regurgitation. Pericardium/Pleural The pericardium appears epicardial fat pad. There is trivial pericardial effusion. Inferior Vena Cava Inferior vena cava is not well visualized. Aorta The aortic root size at the sinus of Valsalva is normal. Left Ventricular Outflow Tract Name Value Normal LVOT 2D LVOT Diameter 2.1 cm LVOT Doppler LVOT Peak Gradient 3 mmHg LVOT Mean Gradient 2 mmHg LVOT VTI 20 cm LVOT VTI/AV VTI Ratio 0.8 LVOT Stroke Volume 69 ml LVOT CO 5.8 l/min LVOT CI 2.6 l/min/m2 Pulmonic Valve Name Value Normal RVOT Doppler RVOT Peak Gradient 0 mmHg PV Doppler PV Peak Gradient 2 mmHg Mitral Valve
[2022-12-15 01:34] LABS: Troponin I < 0.012 ng/mL (0.000-0.034)
[2022-12-15] MEDS: ASPIRIN 81 MG CHEWABLE TABLET 648 MG PO (04:06)
[2022-12-15] MEDS: SODIUM CHLORIDE 0.9% IV 1,000 ML 75 ML IV CONT ×2 (04:06→18:10)
[2022-12-15 05:59] LABS: Basophils Absolute Auto 0.1 K/mm3 (0.0-0.1); Basophils Percent Auto 1.1 % (0.2-1.2); Eosinophils Percent Auto 0.5 % (0-4.4); Hemoglobin 12.6 g/dL (14.0-18.0); Immature Granulocyte Absolute 0.24 K/mm3 (0.00-0.031); Immature Granulocyte Percent A 4.3 % (0-0.5); Lymphocytes Absolute Auto 0.75 K/mm3 (0.9-3.2); Lymphocytes Percent Auto 13.4 % (18.3-44.2); Mean Corpuscular HGB Conc 33.2 g/dl (32-36); Mean Corpuscular Hemoglobin 30.1 pg (26-34); Mean Corpuscular Volume 90.9 fl (80-100); Mean Platelet Volume 10.3 fl (7.4-10.4); Monocytes Percent Auto 17.9 % (2.6-8.5); Neutrophils Absolute Auto 3.5 K/mm3 (1.3-6.7); Neutrophils Percent Auto 62.8 % (45.5-73.1); Platelet Count Result 156 k/mm3 (150-375); Red Blood Count 4.18 M/mm3 (4.6-6.20); Red Cell Distribution Width 19.5 % (11.5-14.5); White Blood Count 5.6 K/mm3 (4.5-10.0)
[2022-12-15 06:21] LABS: Anion Gap 5 mmol/L (8-16); Blood Urea Nitrogen 18 mg/dL (9-20); Calcium 9.9 mg/dL (8.4-10.2); Carbon Dioxide 27 mmol/L (22-30); Chloride 102 mmol/L (98-107); Estimated CRCL calculation 64 ml/min; Estimated Glomerular Filt Rate > 60; Glucose 155 mg/dL (65-110); Magnesium 2.1 mg/dL (1.6-2.3); Phosphorus 2.6 mg/dL (2.5-4.5); Potassium 3.9 mmol/L (3.4-5.0); Sodium 134 mmol/L (137-145)
[2022-12-15 06:24] LABS: Troponin I < 0.012 ng/mL (0.000-0.034)
[2022-12-15] MEDS: LEVOTHYROXINE SODIUM 75 MCG TABLET PO (06:28)
[2022-12-15] MEDS: LEVOTHYROXINE SODIUM 100 MCG TABLET PO (06:28)
--- NOTE | 2022-12-15 09:15 | PM.IMPN ---
Progress Note: A&P Assessment and Plan (1) Chest pain: Qualifiers: Chest pain type: unspecified Qualified Code(s): R07.9 - Chest pain, unspecified Code(s): R07.9 - Chest pain, unspecified Status: Acute Assessment and Plan: Trend troponin, monitor telemetry Check echo NPO for now Cardiology consult placed and pending, stress test ordered and pending (2) Seizure disorder: Code(s): G40.909 - Epilepsy, unspecified, not intractable, without status epilepticus Status: Acute Assessment and Plan: Seizure precautions, continue Keppra (3) Type 2 diabetes mellitus without complication, without long-term current use of insulin: Code(s): E11.9 - Type 2 diabetes mellitus without complications Status: Acute Assessment and Plan: Accu-Cheks, sliding scale insulin, check A1c Blood glucose reviewed 12/15 (4) Hypothyroidism, unspecified: Qualifiers: Hypothyroidism type: acquired Qualified Code(s): E03.9 - Hypothyroidism, unspecified Code(s): E03.9 - Hypothyroidism, unspecified Status: Acute Assessment and Plan: Continue levothyroxine, check TSH (5) Gastro-esophageal reflux disease without esophagitis: Code(s): K21.9 - Gastro-esophageal reflux disease without esophagitis Status: Acute Assessment and Plan: Continue Pepcid, monitor, could be relating to chest pain (6) Essential hypertension: Code(s): I10 - Essential (primary) hypertension Status: Chronic Assessment and Plan: Blood pressure reviewed 12/15 Continue home lisinopril (7) LUIS (obstructive sleep apnea): Code(s): G47.33 - Obstructive sleep apnea (adult) (pediatric) Status: Acute Assessment and Plan: CPAP as tolerated Plan DVT prophylaxis with Eliquis GI prophylaxis not indicated Code status full code Subjective Date/time seen: 12/15/22 09:15 Interval history: 71 y/o male with multiple comorbidities is presenting from assisted living facility with chest pain. stress test pending Exam Narrative: in stress testing Objective Data Vital Signs Vital Signs: Vital Signs - 24 hr 12/14/22 18:09 12/14/22 18:14 12/14/22 19:00 Temperature 98.9 F Pulse Rate 114 H 114 H 111 H Respiratory Rate 26 H 20 Blood Pressure 133/90 Pulse Oximetry 97 96 Oxygen Delivery Room Air 12/14/22 19:18 12/14/22 19:30 12/14/22 19:45 Temperature Pulse Rate 109 H 106 H Respiratory Rate 22 H 23 H Blood Pressure Pulse Oximetry 96 98 95 Oxygen Delivery 12/14/22 19:48 12/14/22 20:00 12/14/22 20:15 Temperature Pulse Rate 100 100 Respiratory Rate 18 16 Blood Pressure 114/96 H Pulse Oximetry 94 97 99 Oxygen Delivery 12/14/22 20:16 12/14/22 20:34 12/14/22 19:10 Temperature Pulse Rate 104 H 99 98 Respiratory Rate 19 18 Blood Pressure 124/67 Pulse Oximetry 97 98 Oxygen Delivery 12/14/22 22:01 12/14/22 22:15 12/14/22 22:30 Temperature Pulse Rate 100 99 103 H Respiratory Rate 19 18 22 H Blood Pressure Pulse Oximetry 97 94 95 Oxygen Delivery 12/14/22 22:48 12/15/22 00:00 12/15/22 00:00 Temperature 97.5 F L Pulse Rate 97 96 Respiratory Rate 22 H Blood Pressure 120/94 H Pulse Oximetry 100 Oxygen Delivery Room Air 12/15/22 00:00 12/15/22 04:00 12/15/22 05:50 Temperature 97.8 F Pulse Rate 96 101 H Respiratory Rate 22 H Blood Pressure 145/68 H Pulse Oximetry 98 Oxygen Delivery Room Air 12/15/22 04:00 12/15/22 08:00 Temperature 97.6 F Pulse Rate 108 H 94 Respiratory Rate 12 Blood Pressure 113/80 Pulse Oximetry 94 Oxygen Delivery Intake/Output Intake/Output: Intake & Output 12/12/22 12/13/22 12/14/22 12/15/22 23:59 23:59 23:59 23:59 Output Total 400 Balance -400 Meds/Results Medications: Active Medications Generic Name Dose Route Start Last Admin
--- NOTE | 2022-12-15 10:15 | EST_ITS ---
Patient Info Name: Ras Moreno Age: 71 years : 1950 Gender: Male Ht: 70 in Wt: 210 lbs BSA: 2.19 m2 HR: 105 bpm BP: 126 / 97 mmHg Heart Rhythm: Sinus Rhythm Exam Date: 12/15/2022 1:36 PM Exam Location: [facility] Stress Patient Status: Inpatient Admit Date: 12/14/2022 Staff Ordering Physician: Polo Morales MD Attending Provider: Nilesh Gleason MD Exercise Technologist: Kassandra Brown, HOLLI Nurse: Sheri Valenzuela APN Exam Type: CA stress honey w NM Study Info Indications R07.9 - Chest pain, unspecified A regadenoson stress test was performed. Summary 1. No abnormal ST/T wave changes diagnostic of ischemia with Lexiscan. 2. Please correlate with nuclear medicine images, reported separately. 3. Stress test supervised by Sheri Valenzuela NP. Stress test interpreted by Polo Morales MD. Protocol: Lexiscan Stress ECG Details Stage: REST Duration (min): 2 min : 2 sec HR (bpm): 105 SBP (mmHg): 126 DBP (mmHg): 97 Stage: REST Duration (min): 8 min : 47 sec HR (bpm): 112 SBP (mmHg): 126 DBP (mmHg): 97 Stage: STAGE 1 Duration (min): 0 min : 59 sec HR (bpm): 120 SBP (mmHg): 152 DBP (mmHg): 63 Stage: RECOVERY Duration (min): 1 min : 0 sec HR (bpm): 121 SBP (mmHg): 152 DBP (mmHg): 63 Stage: RECOVERY Duration (min): 2 min : 0 sec HR (bpm): 120 SBP (mmHg): 152 DBP (mmHg): 63 Stage: RECOVERY Duration (min): 3 min : 0 sec HR (bpm): 119 SBP (mmHg): 131 DBP (mmHg): 69 Stage: RECOVERY Duration (min): 3 min : 18 sec HR (bpm): 119 SBP (mmHg): 131 DBP (mmHg): 69 Rest HR: 112 bpm Peak HR: 125 bpm Rest Sys BP: 126 mmHg Peak Sys BP: 152 mmHg Max Pred HR: 147 bpm % Max Pred HR: 85 % Target HR: 125 bpm Max RPP: 19,000 bpm*mmHg Total Time: 1 min : 0 sec Rest [place] BP: 97 mmHg Peak [place] BP: 63 mmHg Total Dose: 0.4 mg Resting ECG Sinus tachycardia. Stress ECG Sinus tachycardia. No abnormal ST/T wave changes diagnostic of ischemia with Lexiscan. Arrhythmias None. Report Signatures
--- NOTE | 2022-12-15 12:28 | PM.CNCAR ---
Assessment and Plan Assessment and plan (1) Chest pain: Qualifiers: Chest pain type: unspecified Qualified Code(s): R07.9 - Chest pain, unspecified Code(s): R07.9 - Chest pain, unspecified Status: Acute Assessment and Plan: Troponins negative x 3. EKG without ischemic changes. Has risk factors for heart disease including hypertension, diabetes. Will obtain MPI. If MPI is negative, then patient can be discharged home. (2) Atrial fibrillation: Code(s): I48.91 - Unspecified atrial fibrillation Status: Acute Assessment and Plan: Has history of atrial fibrillation, but is currently in sinus rhythm. Recommend to continue Eliquis. (3) Essential hypertension: Code(s): I10 - Essential (primary) hypertension Status: Chronic Assessment and Plan: Blood pressure stable. Continue home meds of Lisinopril History of Present Illness History of Present Illness Consult date/time: 12/15/22 12:28 Requesting physician: Odilia Avalos MD Consult reason: chest pain Reason For Visit: Chest Pain Narrative: We are consulted for chest pain. 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 Has noted above, patient has complex medical history for which I personally reviewed his [facility] medical records. Patient's daughter at bedside during my evaluation who also provides history. Patient presented from his assisted living facility for chest pain evaluation. He tells me that he was about to eat dinner when he developed burning left sided chest pain with radiation to left arm. It felt different than his acid reflux symptoms that he's had in the past. Improved with NTG in the ED. EKG on arrival showed sinus tachycardia, no ischemic changes. Troponins are negative x 3. He had an MPI done in 2016 that was normal. Review of Systems Review of Systems: All systems reviewed & are unremarkable except as noted in HPI and below (HPI) [facility] Past Medical History Medical History (Updated 12/15/22 @ 12:48 by Polo Morales MD) Anxiety Balanitis COVID-19 vaccine series completed Elevated blood pressure reading Elevated LFTs Encephalopathy Essential hypertension Establishing care with new doctor, encounter for YEE (generalized anxiety disorder) Gastro-esophageal reflux disease without esophagitis Gastroesophageal reflux disease History of tobacco use Hypercalcemia Hypercalcemia Hypersomnia Hypothyroidism, unspecified Obesity (BMI 30-39.9) LUIS (obstructive sleep apnea) Personal history of COVID-19 Pharyngitis Pure hypercholesterolemia Rheumatoid arthritis, unspecified Screening for AAA (abdominal aortic aneurysm) Secondary hyperparathyroidism Secondary hypoparathyroidism Seizure Serum calcium elevated Tachycardia Type 2 diabetes mellitus without complication, without long-term current use of insulin Vaccine counseling Vitamin D deficiency, unspecified Surgical History Surgical History S/P Mohs surgery for basal cell carcinoma Family History Family History Father Family history of malignant neoplasm Cancer Sibling Family history of malignant neoplasm Patient's sister is in good health Cancer Mother Patient's mother is in good health Thyroid disorder Other Leukemia Social History Social History Social History: requires caregivers assistance. Family members are deciding on discharge plans either
[2022-12-15 12:50] LABS: Glucose Point of Care 130 mg/dl (65-105)
[2022-12-15] MEDS: levETIRAcetam 500 MG TABLET 1500 MG PO (15:56)
[2022-12-15] MEDS: CHOLECALCIFEROL 1,000 UNITS TABLET 1000 UNITS PO (15:57)
[2022-12-15] MEDS: FOLIC ACID 1 MG TABLET PO (15:57)
[2022-12-15] MEDS: ATORVASTATIN 40 MG TABLET PO (15:57)
[2022-12-15] MEDS: lisinopriL 10 MG TABLET PO (15:57)
[2022-12-15] MEDS: APIXABAN 5 MG TABLET PO ×2 (15:57→20:30)
[2022-12-15] MEDS: FERROUS SULFATE 325 MG TABLET DR BY MOUTH (15:57)
[2022-12-15] MEDS: LACOSAMIDE (*CRX) 100 MG TABLET BY MOUTH (15:57)
[2022-12-15] MEDS: DULoxetine HCL 60 MG CAPSULE.DR PO (16:01)
[2022-12-15] MEDS: LACOSAMIDE (*CRX) 50 MG TABLET PO (16:01)
[2022-12-15 16:17] LABS: Glucose Point of Care 173 mg/dl (65-105)
[2022-12-15] MEDS: DULoxetine HCL 30 MG CAPSULE.DR 90 MG PO (20:30)
[2022-12-15] MEDS: SENNOSIDES 8.6 MG TABLET PO (20:31)
[2022-12-15] MEDS: ARIPiprazole 2 MG TABLET PO (20:31)
[2022-12-15] MEDS: FAMOTIDINE 20 MG TABLET 40 MG PO (20:31)
[2022-12-15 20:59] LABS: Glucose Point of Care 160 mg/dl (65-105)
[2022-12-16] VITALS: PULSE 108
[2022-12-16 04:00] VITALS: BP 129/75; PULSE 96; PULSE 99; RESP 22; TEMP 36.4; O2SAT 99
[2022-12-16 05:15] LABS: Basophils Percent Auto 0.8 % (0.2-1.2); Eosinophils Percent Auto 0.4 % (0-4.4); Hematocrit 37.2 % (42.0-52.0); Hemoglobin 12.3 g/dL (14.0-18.0); Immature Granulocyte Absolute 0.17 K/mm3 (0.00-0.031); Immature Granulocyte Percent A 3.6 % (0-0.5); Lymphocytes Absolute Auto 0.52 K/mm3 (0.9-3.2); Mean Corpuscular HGB Conc 33.1 g/dl (32-36); Mean Corpuscular Hemoglobin 30.1 pg (26-34); Mean Platelet Volume 10.1 fl (7.4-10.4); Monocytes Absolute Auto 0.8 K/mm3 (0.1-0.6); Monocytes Percent Auto 16.1 % (2.6-8.5); Neutrophils Absolute Auto 3.2 K/mm3 (1.3-6.7); Neutrophils Percent Auto 68.1 % (45.5-73.1); Platelet Count Result 154 k/mm3 (150-375); Red Blood Count 4.09 M/mm3 (4.6-6.20); Red Cell Distribution Width 19.4 % (11.5-14.5); White Blood Count 4.7 K/mm3 (4.5-10.0)
[2022-12-16 05:25] LABS: Alanine Aminotransferase 22 U/L (6-50); Albumin Level 3.3 g/dL (3.5-5.1); Alkaline Phosphatase 90 U/L (38-126); Anion Gap 4 mmol/L (8-16); Aspartate Amino Transferase 25 U/L (17-59); Bilirubin,Total 1.2 mg/dL (0.2-1.3); Blood Urea Nitrogen 15 mg/dL (9-20); Calcium 9.8 mg/dL (8.4-10.2); Carbon Dioxide 23 mmol/L (22-30); Chloride 106 mmol/L (98-107); Cholesterol 132 mg/dL (0-200); Estimated CRCL calculation 70 ml/min; Estimated Glomerular Filt Rate > 60; Glucose 155 mg/dL (65-110); HDL Direct 44 mg/dL; Potassium 3.8 mmol/L (3.4-5.0); Sodium 133 mmol/L (137-145); Triglycerides 191 mg/dL (<150)
[2022-12-16 05:30] LABS: Hemoglobin A1C 7.9 % (<5.7)
[2022-12-16 05:36] LABS: LDL Cholesterol Direct 55 mg/dL
[2022-12-16] MEDS: LEVOTHYROXINE SODIUM 100 MCG TABLET PO (06:30)
[2022-12-16] MEDS: LEVOTHYROXINE SODIUM 75 MCG TABLET PO (06:30)
[2022-12-16 08:00] VITALS: PULSE 117; PULSE 128
[2022-12-16 08:04] VITALS: BP 121/68; PULSE 120; RESP 18; TEMP 36.2; O2SAT 98
--- NOTE | 2022-12-16 08:40 | PM.PNCARD ---
Progress Note: A&P Assessment and Plan (1) Chest pain: Qualifiers: Chest pain type: unspecified Qualified Code(s): R07.9 - Chest pain, unspecified Code(s): R07.9 - Chest pain, unspecified Status: Acute Assessment and Plan: Troponins negative x 3. EKG without ischemic changes. Has risk factors for heart disease including hypertension, diabetes. MPI showed region of mild reversible decreased perfusion at the mid inferolateral and basilar inferolateral segments consistent with ischemia, EF 62%. Discussed results with patient and daughter at the bedside and plan for follow up angiogram. To be done as an outpatient as patient is asymptomatic and on Eliquis, so LHC could not be done until next week anyhow. Patient and daughter comfortable with this plan. Continue statin. No ASA since he is on apixaban. OK for d/c today from a cardiac standpoint. (2) Atrial fibrillation: Code(s): I48.91 - Unspecified atrial fibrillation Status: Acute Assessment and Plan: Has history of atrial fibrillation, but is currently in sinus rhythm. Recommend to continue Eliquis. (3) Essential hypertension: Code(s): I10 - Essential (primary) hypertension Status: Chronic Assessment and Plan: Blood pressure stable. Continue home meds of Lisinopril Subjective Date/time seen: 12/16/22 08:40 Interval history: Cardiology follow up for chest pain Feeling well this morning and is free of chest pain. No complaints of any kind. Review of Systems Review of Systems: All systems reviewed & are unremarkable except as noted in HPI and below (HPI) Exam Const: General: comfortable and no acute distress HENMT: Mouth: Yes moist mucous membranes Eyes: General: appearance normal, both eyes and all related structures Sclera: sclerae normal Neck: Neck: supple Resp: Effort & Inspection: normal respiratory effort Auscultation: clear to auscultation bilaterally Cardio: Rate: regular rate Rhythm: regular rhythm Heart sounds: no murmurs Skin: General skin exam: normal color Neuro: Speech: normal speech Psych: Mental Status: mental status grossly normal Affect: normal affect Objective Data Vital Signs Vital Signs: Vital Signs - 24 hr 12/15/22 10:00 12/15/22 12:00 12/15/22 12:00 Temperature 36.5 C Pulse Rate 99 95 101 H Respiratory Rate 16 Blood Pressure 121/85 Pulse Oximetry 96 Oxygen Delivery 12/15/22 12:00 12/15/22 13:53 12/15/22 16:00 Temperature 36.8 C Pulse Rate 126 H 106 H Respiratory Rate 24 H Blood Pressure 130/80 Pulse Oximetry 96 Oxygen Delivery Room Air 12/15/22 16:00 12/15/22 16:00 12/15/22 18:00 Temperature Pulse Rate 120 H 116 H Respiratory Rate Blood Pressure Pulse Oximetry Oxygen Delivery Room Air 12/15/22 19:36 12/15/22 20:00 12/15/22 20:00 Temperature 36.4 C L Pulse Rate 118 H 124 H Respiratory Rate 20 Blood Pressure 131/91 H Pulse Oximetry 99 Oxygen Delivery Room Air 12/15/22 23:23 12/15/22 23:44 12/16/22 00:00 Temperature 36.4 C L Pulse Rate 109 H 108 H Respiratory Rate 20 Blood Pressure 138/78 Pulse Oximetry 98 Oxygen Delivery Room Air 12/16/22 04:00 12/16/22 04:00 12/16/22 04:00 Temperature 36.4 C Pulse Rate 99 96 Respiratory Rate 22 H Blood Pressure 129/75 Pulse Oximetry 99 Oxygen Delivery Room Air 12/16/22 08:04 12/16/22 08:00 Temperature 36.2 C L Pulse Rate 120 H 117 H Respiratory Rate 18 Blood Pressure 121/68 Pulse Oximetry 98 Oxygen Delivery Intake/Output Intake/Output: Intake & Output 12/13/22 12/14/22 12/15/22 12/16/22 23:59 23:59 23:59 23:59 Intake Total 1500 600 Output Total 950 Balance 550 600 Meds/Results Medications: Active Medications Generic Name Dose Route Start Last Admin Trade Name Freq PRN Reason Stop Dose Admin Acetaminophen 650 mg 12/14/22 22:10 Acetaminophen 325 Mg
--- NOTE | 2022-12-16 08:45 | ECG_ITS ---
Measurements Intervals [place] Rate: 115 P: 9 OR: 153 QRS: 25 QRSD: 81 T: 17 QT: 332 QTc: 460 Interpretive Statements SINUS TACHYCARDIA ATRIAL PREMATURE COMPLEX MINIMAL Q WAVES- INFERIOR LEADS BORDERLINE T WAVE ABNORMALITY- INFERIOR LEADS ABNORMAL ECG COMPARED TO ECG 12/14/2022 18:16:56 NO SIGNIFICANT CHANGES Electronically Signed On 12-16-2022 9:34:56 CDT by Aroldo Dowling D.O.
[2022-12-16 08:46] LABS: Glucose Point of Care 142 mg/dl (65-105)
[2022-12-16] MEDS: levETIRAcetam 500 MG TABLET 1500 MG PO (09:17)
[2022-12-16] MEDS: lisinopriL 10 MG TABLET PO (09:17)
[2022-12-16] MEDS: LACOSAMIDE (*CRX) 50 MG TABLET PO (09:18)
[2022-12-16] MEDS: CHOLECALCIFEROL 1,000 UNITS TABLET 1000 UNITS PO (09:18)
[2022-12-16] MEDS: ATORVASTATIN 40 MG TABLET PO (09:18)
[2022-12-16] MEDS: DULoxetine HCL 60 MG CAPSULE.DR PO (09:18)
[2022-12-16] MEDS: LACOSAMIDE (*CRX) 100 MG TABLET BY MOUTH (09:18)
[2022-12-16] MEDS: APIXABAN 5 MG TABLET PO (09:18)
[2022-12-16] MEDS: FOLIC ACID 1 MG TABLET PO (09:18)
[2022-12-16] MEDS: FERROUS SULFATE 325 MG TABLET DR BY MOUTH (09:18)
--- NOTE | 2022-12-16 10:12 | PM.DS ---
DS: Admitting Diagnosis Discharge Date 12/16/22 Admitting Diagnosis chest pain DS: Discharge Diagnosis Discharge Diagnosis (1) Chest pain: Qualifiers: Chest pain type: unspecified Qualified Code(s): R07.9 - Chest pain, unspecified Code(s): R07.9 - Chest pain, unspecified Status: Acute Assessment and Plan: Trend troponin, monitor telemetry Check echo NPO for now Cardiology consult placed and pending, stress test ordered and pending (2) Seizure disorder: Code(s): G40.909 - Epilepsy, unspecified, not intractable, without status epilepticus Status: Acute Assessment and Plan: Seizure precautions, continue Keppra (3) Type 2 diabetes mellitus without complication, without long-term current use of insulin: Code(s): E11.9 - Type 2 diabetes mellitus without complications Status: Acute Assessment and Plan: Accu-Cheks, sliding scale insulin, check A1c Blood glucose reviewed 12/15 (4) Hypothyroidism, unspecified: Qualifiers: Hypothyroidism type: acquired Qualified Code(s): E03.9 - Hypothyroidism, unspecified Code(s): E03.9 - Hypothyroidism, unspecified Status: Acute Assessment and Plan: Continue levothyroxine, check TSH (5) Gastro-esophageal reflux disease without esophagitis: Code(s): K21.9 - Gastro-esophageal reflux disease without esophagitis Status: Acute Assessment and Plan: Continue Pepcid, monitor, could be relating to chest pain (6) Essential hypertension: Code(s): I10 - Essential (primary) hypertension Status: Chronic Assessment and Plan: Blood pressure reviewed 12/15 Continue home lisinopril (7) LUIS (obstructive sleep apnea): Code(s): G47.33 - Obstructive sleep apnea (adult) (pediatric) Status: Acute Assessment and Plan: CPAP as tolerated Plan DVT prophylaxis with Eliquis GI prophylaxis not indicated Code status full code DS: Summary Hospital Course Hospital Course: 71 year old male with seropositive erosive rheumatoid arthritis, 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 Has noted above, patient has complex medical history for which I personally reviewed his [facility] medical records. Patient's daughter at bedside during my evaluation who also provides history. Patient presented from his assisted living facility for chest pain evaluation. He tells me that he was about to eat dinner when he developed burning left sided chest pain with radiation to left arm. It felt different than his acid reflux symptoms that he's had in the past. Improved with NTG in the ED. EKG on arrival showed sinus tachycardia, no ischemic changes. Troponins are negative x 3. He had an MPI done in 2016 that was normal. Troponins negative x 3. EKG without ischemic changes. Has risk factors for heart disease including hypertension, diabetes.? MPI showed region of mild reversible decreased perfusion at the mid inferolateral and basilar inferolateral segments consistent with ischemia, EF 62%.? Discussed results with patient and daughter at the bedside and plan for follow up angiogram.? To be done as an outpatient as patient is asymptomatic and on Eliquis, so LHC could not be done until next week anyhow.? Patient and daughter comfortable with this plan.? Continue statin.? No ASA since he is on apixaban.? OK for d/c today from a cardiac standpoint.? Please see above and med rec for details. Patient was discharged in stable condition with close outpatient follow-up. Time Spent with Patient Time attestation: Total time spen
[2022-12-16 10:29] VITALS: PULSE 108
[2022-12-16 12:00] VITALS: BP 118/77; PULSE 110; PULSE 111; RESP 20; TEMP 37.2; O2SAT 92
[2022-12-16 12:01] LABS: Glucose Point of Care 197 mg/dl (65-105)
== END 2022-12-16 12:39 | disposition home or self-care (01) ==
LOC: ANHED 21:43 → ANHIMU 22:29
PROVIDERS: Admitting Provider Family Medicine; Emergency Provider Student in an Organized Health Care Education/Training Program; PCP Nurse Practitioner Family; Visit Provider Student in an Organized Health Care Education/Training Program
DX: R07.9 Chest pain, unspecified (principal); E11.9 Type 2 diabetes mellitus without complications; I10 Essential (primary) hypertension; E78.5 Hyperlipidemia, unspecified; K21.9 Gastro-esophageal reflux disease without esophagitis; E03.9 Hypothyroidism, unspecified; E66.9 Obesity, unspecified; Z68.31 Body mass index [BMI] 31.0-31.9, adult; E55.9 Vitamin D deficiency, unspecified; Z87.891 Personal history of nicotine dependence; N28.89 Other specified disorders of kidney and ureter; G40.909 Epilepsy, unspecified, not intractable, without status epilepticus; E87.6 Hypokalemia; G93.40 Encephalopathy, unspecified; G62.9 Polyneuropathy, unspecified; R32 Unspecified urinary incontinence; R26.9 Unspecified abnormalities of gait and mobility; M06.9 Rheumatoid arthritis, unspecified; E20.8 Other hypoparathyroidism; M05.79 Rheumatoid arthritis with rheumatoid factor of multiple sites without organ or systems involvement; N25.81 Secondary hyperparathyroidism of renal origin; G47.33 Obstructive sleep apnea (adult) (pediatric); I67.7 Cerebral arteritis, not elsewhere classified; I48.91 Unspecified atrial fibrillation
CPT/HCPCS: 36415; 71046; 78452; 80048; 80053; 80061; 82948; 83036; 83690; 83735; 84100; 84443; 84484; 85025; 85610; 85730; 93005; 93017; 93306; 99285; A9270; A9502; G0378; J2785; J7030

== ENCOUNTER 2022-12-21 01:06 | Day surgery (SDC) | payer MEDICARE, OTHER, SELFPAY ==
[2022-12-21] VITALS (11 sets, daily range): BP systolic 105–131; BP diastolic 70–91; PULSE 81–108; RESP 11–20; TEMP 36.3; O2SAT 95–99; BMI 31.5
[2022-12-21 09:17] LABS: Basophils Absolute Auto 0.1 K/mm3 (0.0-0.1); Basophils Percent Auto 0.7 % (0.2-1.2); Eosinophils Percent Auto 0.4 % (0-4.4); Hematocrit 35.8 % (42.0-52.0); Hemoglobin 11.9 g/dL (14.0-18.0); Immature Granulocyte Absolute 0.16 K/mm3 (0.00-0.031); Immature Granulocyte Percent A 2.1 % (0-0.5); Lymphocytes Absolute Auto 0.71 K/mm3 (0.9-3.2); Lymphocytes Percent Auto 9.3 % (18.3-44.2); Mean Corpuscular HGB Conc 33.2 g/dl (32-36); Mean Corpuscular Hemoglobin 30.4 pg (26-34); Mean Corpuscular Volume 91.3 fl (80-100); Mean Platelet Volume 10.1 fl (7.4-10.4); Monocytes Absolute Auto 0.9 K/mm3 (0.1-0.6); Monocytes Percent Auto 12.3 % (2.6-8.5); Neutrophils Absolute Auto 5.8 K/mm3 (1.3-6.7); Neutrophils Percent Auto 75.2 % (45.5-73.1); Platelet Count Result 193 k/mm3 (150-375); Red Blood Count 3.92 M/mm3 (4.6-6.20); Red Cell Distribution Width 19.8 % (11.5-14.5); White Blood Count 7.6 K/mm3 (4.5-10.0)
[2022-12-21 09:21] LABS: Anion Gap 9 mmol/L (8-16); Blood Urea Nitrogen 17 mg/dL (9-20); Calcium 10.4 mg/dL (8.4-10.2); Carbon Dioxide 24 mmol/L (22-30); Chloride 102 mmol/L (98-107); Estimated CRCL calculation 68 ml/min; Estimated Glomerular Filt Rate > 60; Glucose 187 mg/dL (65-110); Potassium 3.7 mmol/L (3.4-5.0); Sodium 135 mmol/L (137-145)
--- NOTE | 2022-12-21 11:22 | WPDHPUPDATE1 ---
History and Physical Update Update Date/Time: 12/21/22 11:22 History and Physical has been reviewed, including an updated exam of the patient. There are NO changes in the patient's condition. Risks, benefits, and alternatives have been discussed and questions answered. Patient agrees to proceed with procedure.
--- NOTE | 2022-12-21 11:22 | WPDMODSED ---
Moderate Sedation Note-Pt Data Patient Data Diagnosis: Coronary artery disease, abnormal stress test Present Complaint: Coronary artery disease, abnormal stress test Procedure to be performed/Plan: Coronary angiography Allergies Allergy/AdvReac Type Severity Reaction Status Date / Time rubber, unspecified Allergy Severe Rash Verified 12/21/22 08:37 oxycodone Allergy Unknown Verified 12/21/22 08:37 sulfadiazine Allergy Unknown Verified 12/21/22 08:37 Home Medications Medication Instructions Recorded Confirmed Type folic acid 1 mg tablet 1 mg PO DAILY 03/14/19 12/20/22 History duloxetine 60 mg capsule,delayed 60 mg PO QAM 04/05/21 12/20/22 History release famotidine 20 mg tablet 40 mg PO HS 04/05/21 12/20/22 History levetiracetam 750 mg tablet 1,500 mg PO BID 05/12/21 12/20/22 History calcium carbonate 500 mg-vitamin 500 mg PO DAILY #0 tabs 05/26/21 12/20/22 Rx D3 5 mcg (200 unit) tablet (Oyster Shell Calcium-Vitamin D3) apixaban 5 mg tablet (Eliquis) 5 mg PO BID 12/14/22 12/20/22 History aripiprazole 2 mg tablet 2 mg PO HS 12/14/22 12/20/22 History atorvastatin 40 mg tablet 40 mg PO HS 12/14/22 12/20/22 History duloxetine 30 mg capsule,delayed 30 mg PO HS 12/14/22 12/20/22 History release insulin lispro 100 unit/mL 1 sliding scale dose subcut BIDWM 12/14/22 12/20/22 History subcutaneous pen lacosamide 150 mg tablet 150 mg PO BID 12/14/22 12/20/22 History levothyroxine 175 mcg tablet 175 mcg PO DAILY 12/14/22 12/20/22 History lisinopril 10 mg tablet 10 mg PO DAILY 12/14/22 12/20/22 History cholecalciferol (vitamin D3) 25 25 mcg PO DAILY 12/15/22 12/20/22 History mcg (1,000 unit) tablet ferrous sulfate 325 mg (65 mg 325 mg PO BID 12/15/22 12/20/22 History iron) tablet sennosides 8.6 mg tablet (senna) 8.6 mg PO HS 12/15/22 12/20/22 History acetaminophen 325 mg tablet (Pain 650 mg PO Q6H PRN Pain 12/20/22 12/20/22 History Reliever (acetaminophen)) metoprolol succinate 25 mg 25 mg PO DAILY 12/20/22 12/20/22 History tablet,extended release 24 hr tramadol 50 mg tablet 50 mg PO Q6H PRN Pain 12/20/22 12/20/22 History Current Medications: Active Medications Sodium Chloride (Normal Saline Iv) 500 mls @ 100 mls/hr IV CONT .Q5H ASTER Sedation/Anesthesia: No previous sedation/anesthesia problems (including family history). [facility] Past Medical History Medical History Anxiety Balanitis COVID-19 vaccine series completed Elevated blood pressure reading Elevated LFTs Encephalopathy Essential hypertension Establishing care with new doctor, encounter for YEE (generalized anxiety disorder) Gastro-esophageal reflux disease without esophagitis Gastroesophageal reflux disease History of tobacco use Hypercalcemia Hypercalcemia Hypersomnia Hypothyroidism, unspecified Obesity (BMI 30-39.9) LUSI (obstructive sleep apnea) Personal history of COVID-19 Pharyngitis Pure hypercholesterolemia Rheumatoid arthritis, unspecified Screening for AAA (abdominal aortic aneurysm) Secondary hyperparathyroidism Secondary hypoparathyroidism Seizure Serum calcium elevated Tachycardia Type 2 diabetes mellitus without complication, without long-term current use of insulin Vaccine counseling Vitamin D deficiency, unspecified Surgical History Surgical History S/P Mohs surgery for basal cell carcinoma Family History Family History Father Family history of malignant neoplasm Cancer Sibling Family history of malignant neoplasm Patient's sister is in good health Cancer Mother Patient's mother is in good health Thyroid disorder Other Leukemia Social History Social History Social History: requires caregivers assistance. Family members are deciding on discharge plans either back to his
--- NOTE | 2022-12-21 11:23 | P.PCNCC_ITS ---
Cardiac Cath Procedure Note Date of procedure:: 12/21/22 Performing physician:: CATHETERIZATION LABORATORY REPORT Procedure Date: 12/21/2022 Personal Fitness Manager: Polo Morales M.D., [facility]? Referring Physician: Polo Morales M.D. ? Anesthesia: Procedure start time: 11:07 Procedure end time: 11:17 Total procedure time: 10 minutes No IV sedation was administered for this procedure. Pre-op Diagnosis: Coronary artery disease Post-op Diagnosis: No obstructive coronary arteries Procedure(s): Coronary angiography Access Site: Right radial artery Brief History and Clinical Indications: Patient is a 72 year old male who is referred for [facility] for atypical chest pain, abnormal stress test. All risks, benefits and alternatives to left heart catheterization with or without percutaneous coronary intervention was discussed at length with the patient and the patient's daughter (who signed consent due to patient's cognitive status). Risk of complications including but not limited to bleeding, infection, arrhythmia, stroke, worsening kidney function, blood loss, groin hematoma, limb loss, emergency coronary artery bypass grafting, and even were discussed with the patient and the patient's daughter and all questions were answered. The patient and patient's daughter understood and wished to proceed. Time out called, patient name, date of , medical record number, allergies, procedure performed, identify Personal Fitness Manager, patient and staff member concurred with accurate data, procedure carried on. Findings: LEFT HEART CATHETERIZATION FINDINGS: 1. Left main: Large caliber vessel. The left main coronary artery is widely p atent without any significant obstructive disease. 2. Left anterior descending: Large caliber vessel that tapers to small caliber distally. The LAD and the diagonal branches have mild luminal irregularities without any significant obstructive angiographic disease. 3. Left circumflex: Large caliber vessel. The left circumflex artery and the main marginal branches have mild luminal irregularities without any significant obstructive angiographic disease. 4. Right coronary artery: Large caliber vessel. The RCA has mild luminal irregularities without any significant obstructive angiographic disease. The RCA is the dominant vessel. Description of Procedure: Informed consent signed and placed in the chart. Patient transferred to rags laborer room. Prepped and draped in usual sterile fashion. 2% lidocaine injected subcutaneously in right wrist area. 22-gauge venipuncture catheter used to access the right radial artery under ultrasound guidance. 6-FR slender sheath placed in right radial artery. Nitroglycerine and Verapamil were given intraarterial through the sheath. Versacore wire advanced under fluoroscopy 5F Tig 4 diagnostic catheter engaged Left Main Coronary Artery. 5F Tig 4 diagnostic catheter engaged Right Coronary Artery Multiple orthogonal angiogram obtained and reviewed Hemostasis was achieved by application of TR band. ? Assessment: No obstructive coronary arteries Post Operative Condition: Stable No significant blood loss Disposition: Home Plan: The patient will be monitored in the recovery area. Discharge home after post-cath bed rest is completed. Continue aggressive medical therapy and risk factor modification. ? Polo Morales M.D. Interventional Cardiology
--- NOTE | 2022-12-21 15:13 | SUR.PHASEII ---
Phase II completed @1420. Discharge instructions talked over with patient and patients daughter. Pt wheeled out to daughters car by RN with discharge instructions in hand.
== END 2022-12-21 14:45 | disposition home or self-care (01) ==
PROVIDERS: PCP Nurse Practitioner Family; Visit Provider Internal Medicine
PROC: (CPT 93454; principal; 2022-12-21 10:00)
DX: I25.10 Atherosclerotic heart disease of native coronary artery without angina pectoris (principal); R94.39 Abnormal result of other cardiovascular function study; R07.89 Other chest pain; F41.9 Anxiety disorder, unspecified; F41.1 Generalized anxiety disorder; I10 Essential (primary) hypertension; K21.9 Gastro-esophageal reflux disease without esophagitis; G47.33 Obstructive sleep apnea (adult) (pediatric); E78.00 Pure hypercholesterolemia, unspecified; G40.909 Epilepsy, unspecified, not intractable, without status epilepticus; E55.9 Vitamin D deficiency, unspecified; E11.9 Type 2 diabetes mellitus without complications; Z79.01 Long term (current) use of anticoagulants; Z79.4 Long term (current) use of insulin; Z87.891 Personal history of nicotine dependence
CPT/HCPCS: 36415; 80048; 85025; 93454; A9270; C1769; C1887; C1894; J1644; J2250; J3010; J7040